=== PATIENT | female | born 1940 | race Caucasian/White ===

== ENCOUNTER 2016-07-23 11:37 | Outpatient (CLI) | payer OTHER ==
[2016-07-23] MEDS ORDERED: ACIDOPHILUS LAC1 CAP PO (13:41)
[2016-07-23] MEDS ORDERED: JUVEN (13:42)
[2016-07-23] MEDS ORDERED: PRILOSEC10 M1 PO (13:43)
[2016-07-23] MEDS ORDERED: CORDARONE200 MG PO (13:47)
[2016-07-23] MEDS ORDERED: NOVOLOG100 U/M1 SC (14:18)
[2016-07-23] MEDS ORDERED: HUMALOG 30100 UNITS/ SC (14:18)
[2016-07-23] MEDS ORDERED: COREG12.5 MG PO (14:19)
[2016-07-23] MEDS ORDERED: GABAPENTIN100 MG PO (14:19)
[2016-07-23] MEDS ORDERED: COUMADIN5 MG PO (14:20)
[2016-07-23] MEDS ORDERED: CRESTOR20 MG PO ×2 (14:21→14:22)
[2016-07-23] MEDS ORDERED: ISOSORBIDE DINI20 MG PO (14:22)
[2016-07-23] MEDS ORDERED: MEGACE40 MG PO (14:23)
[2016-07-23] MEDS ORDERED: PROTONIX40 MG PO (14:26)
[2016-07-23] MEDS ORDERED: LINEZOLID600 MG PO (14:27)
[2016-07-23] MEDS ORDERED: IPRAT-ALBUT 0.5-3 ML UPD (14:27)
[2016-07-23] MEDS ORDERED: HYDROCODON-ACE1 EAC7 PO (14:28)
[2016-07-23] MEDS ORDERED: BENZONATATE200 MG PO (14:29)
[2016-07-23] MEDS ORDERED: GUAIFENESI100 MG/5 M PO (14:29)
[2016-07-23 14:35] VITALS: BP 112/50
--- NOTE | 2016-07-23 14:48 | NUR ---
AWAKENED BRIEFLY FOR TEMPERATURE CHECK. RESPIRATIONS WITHOUT DISTRESS, NO SIGNS OF TRANSFUSION REACTION NOTED.
--- NOTE | 2016-07-23 16:40 | NUR ---
REPOSITIONED TO RIGHT SIDE. SECOND UNIT OF PRBC'S UP WITH NS AND BLOOD TUBING.
--- NOTE | 2016-07-23 17:45 | NUR ---
1700 RESTING WITH EYES CLOSED ON RT SIDE.RESP EVEN AND NONLABORED.NO S/S OF BLOOD REACTIONS IV VIA RT CHEST DIALYSIS CATHETER DRESSING C/D/I.
--- NOTE | 2016-07-23 18:53 | NUR ---
1800 REPOSITIONED UP IN THE BED. ASSISTED WITH FEEDING PATIENT. BLOOD INFUSING VIA RT CHEST DIALYSIS CATHETER AND NO S/S OF BLOOD REACTIONS NOTED.
--- NOTE | 2016-07-23 18:57 | NUR ---
1830 REPOSITIONED TO LEFT SODE. PATIENT CHECKED AND IS DRY.RESP NONLABORED BLOOD INFUSING WITHOUT S/S OF ADVERSE EFFECTS NOTED.
--- NOTE | 2016-07-23 18:58 | NUR ---
1840 BLOOD COMPLETED AND FLUSHED WITH SALINE.
--- NOTE | 2016-07-23 19:50 | NUR ---
1911 RT CHEST DIALYSIS CATHETER FLUSHED WITH SALINE AND HEPARIN.
--- NOTE | 2016-07-23 19:51 | NUR ---
1939 V/S CHECKED BLOOD COMPLETED AND NO S/S OF BLOOD REACTIONS NOTED.
--- NOTE | 2016-07-23 19:52 | NUR ---
1947 TO [facility] AND ASSISTED FROM BED TO W/C VIA XIANG LIFT.
--- NOTE | 2016-07-23 19:52 | NUR ---
193 INCONTINENT OF STOOL BEN CARE GIVEN DIAPER CHANGED.
== END 2016-07-23 19:49 | disposition home or self-care (01) ==
LOC: D.OPS 11:37
DX: D64.9 Anemia, unspecified (principal)

== ENCOUNTER 2016-08-25 11:04 | Inpatient (IN) | payer MEDICARE ==
[~2016-08-25] VITALS: Ht 162.6 cm; Wt 90.1 kg
[2016-08-25 02:00] VITALS: BP 95/34
[~2016-08-25 11:04] MED LIST: ACIDOPHILUS LAC1 CAP PO; BENZONATATE200 MG PO; CORDARONE200 MG PO; COREG12.5 MG PO; COUMADIN5 MG PO; CRESTOR20 MG PO; GABAPENTIN100 MG PO; GUAIFENESI100 MG/5 M PO; HUMALOG 30100 UNITS/ SC; HYDROCODON-ACE1 EAC7 PO; IPRAT-ALBUT 0.5-3 ML UPD; ISOSORBIDE DINI20 MG PO; JUVEN; LINEZOLID600 MG PO; MEGACE40 MG PO; NOVOLOG100 U/M1 SC; PRILOSEC10 M1 PO; PROTONIX40 MG PO
[2016-08-25 12:12] LABS: BASOPHILS 0.6 % (0.0-2.0); EOSINOPHILS 4.1 % (0-7); HEMATOCRIT 34.3 % (36.0-48.0); HEMOGLOBIN 10.7 g/dL (12-16); IMMATURE GRANULOCYTES 0.2 % (0-5); LYMPHOCYTES 19.8 % (15-50); MCH 29.7 pg (26.0-34.0); MCHC 31.2 g/dL (31.0-37.0); MCV 95.3 fL (80.0-100.0); MEAN PLATELET VOLUME 9.3 fL (7.4-10.4); MONOCYTES 12.8 % (2-11); NEUTROPHILS 62.5 % (40-80); PLATELET COUNT 250 10x3/uL (130-400); RDW 17.4 % (11.5-14.5); WBC 6.6 10x3/uL (4.8-10.8)
[2016-08-25 12:25] LABS: ALBUMIN 2.4 g/dL (3.4-5.0); ALKALINE PHOSPHATASE 157 U/L (46-116); ALT (SGPT) 19 U/L (10-68); BILIRUBIN - TOTAL 0.61 mg/dL (0.2-1.3); CALC OSMOLALITY 279 mosm/kg (275-300); CALCIUM 8.4 mg/dL (8.5-10.1); CARBON DIOXIDE 28.9 mmol/L (21.0-32.0); CHLORIDE - SERUM 101 mmol/L (98-107); CREATININE - SERUM 1.9 mg/dL (0.6-1.3); GLUCOSE 89 mg/dL (74-106); PROTEIN - SERUM 7.9 g/dL (6.4-8.2); SODIUM 139 mmol/L (136-145); UREA NITROGEN 21 mg/dL (7-18); eGFR NON AFRICAN AMERICAN 27 mL/min (90-120)
[2016-08-25 12:28] LABS: PRO BNP 30757 pg/mL (0-125); TROPONIN-I < 0.017 ng/mL (0.000-0.060)
[2016-08-25 16:00] VITALS: BP 104/51; BMI 31.3
--- NOTE | 2016-08-25 17:27 | NUR ---
EARLIER PT ARRIVED FROM ER VIA WC. PATIENT LIFTED INTO BED VIA HELP OF STAFF. DR. MAJANO HERE TO EXAM PT. RESP WITH WHEEZING ONINSPIRATION AND EXPIRATION. HEMOSPLIT IN R CHEST WITHOUT ANY DRESSING. STERILE DRESSING PLACE. PIV IN LFOREARM. PATIENT HAS RIGHT SIDED WEAKNESS DUE TO OLD CVA. MONITOR ON AND UNCAF WITH RATE OF 117. CARDIZEM GTT GOING @ 5. FAMILY REPORTS PT HAS PRESSURE ULCER ON COCCYX AND MAKAYLA HEELS. DRESSING ON ALL CDI. DRESSING PEALED BACK FROM COCCYX TO EXAMINE WOUND. WOUND IS APPROX 4 IN X 2IN DEEP WITH GREEN DRAINAGE ON DRESSING SCANT AMT. DRESSING PLACED BACK. PATIENT CO PAIN. MAKAYLA HEEL DRESSINGS REMOVED TO EXAMINE. MAKAYLA HEELS ULCER ARE SCABBED OVER AND APPROX 1X1 WITHOUT ANY DRAINAGE. DRESSINGS REPLACED. WILL GET WOUND CARE CONSULT.
--- NOTE | 2016-08-25 20:26 | NUR ---
HS MEDS GIVEN WITH FRESH ICE WATER. BS 86, NO COVERAGE NEEDED PER S/S. BUPRENEX 0.2 MG GIVEN IV FOR C/O PAIN TO WOUND ON COCCYX. NO OTHER NEEDS AT THIS TIME, BED LOW, CL IN REACH.
--- NOTE | 2016-08-25 22:12 | NUR ---
RESTING ON RIGHT SIDE, RESPERATIONS EVEN, NO S/S DISTRESS NOTED.
[2016-08-26] VITALS: BP 104/67
--- NOTE | 2016-08-26 00:32 | NUR ---
KNITTER HELPER AT BEDSIDE TO OBTAIN VITALS, CALL LIGHT IN REACH. 93 CAF ON TELEMETRY. WILL CONTINUE WITH PLAN OF CARE.
--- NOTE | 2016-08-26 03:00 | NUR ---
REPOSITIONED IN BED FOR COMFORT. DRSG TO COCCYX OFF, REDRESSED WITH NS WET TO DRY UNTIL FURTHER ORDERS RECIEVED FROM WOUND CARE.
[2016-08-26 04:00] VITALS: BP 103/37
[2016-08-26 06:45] LABS: BASOPHILS 0.6 % (0.0-2.0); HEMATOCRIT 35.4 % (36.0-48.0); HEMOGLOBIN 10.4 g/dL (12-16); IMMATURE GRANULOCYTES 0.1 % (0-5); LYMPHOCYTES 20.1 % (15-50); MCH 28.6 pg (26.0-34.0); MCHC 29.4 g/dL (31.0-37.0); MEAN PLATELET VOLUME 9.7 fL (7.4-10.4); MONOCYTES 10.7 % (2-11); NEUTROPHILS 67.5 % (40-80); PLATELET COUNT 244 10x3/uL (130-400); RBC 3.64 10x6/uL (4.00-5.40); RDW 17.8 % (11.5-14.5); WBC 7.8 10x3/uL (4.8-10.8)
[2016-08-26 06:50] LABS: INR 1.79 (0.85-1.17); PROTIME 20.8 SECONDS (11.6-15.0)
[2016-08-26 06:52] LABS: MCV 97.3 fL (80.0-100.0)
[2016-08-26 06:55] LABS: ANION GAP 16.2 mmol/L (8-16); CALCIUM 8.6 mg/dL (8.5-10.1); CREATININE - SERUM 2.6 mg/dL (0.6-1.3); POTASSIUM - SERUM 4.2 mmol/L (3.5-5.1)
--- NOTE | 2016-08-26 07:33 | NUR ---
ASSESSMENT COMPLETED. O2 AT 2 L/M PER NC. TELEMERTY SHOWS CAF AT 103. LEFT FORE ARM IV WITH CARDIZWN AT 10 AND NS AT KVO. PT HAS RIGHT SIDED WEAKNESS. PT HAS A RIGHT SIDED AVF AND RIGHT CHES HEMOSPLIT. J TUBE NOTED TO ABD. SR UP WITH CALL LIGHT IN REACH
[2016-08-26 07:48] VITALS: BP 105/34
[2016-08-26 12:05] VITALS: BP 104/41
[2016-08-26 13:15] VITALS: Ht 162.6 cm; Wt 90.1 kg
--- NOTE | 2016-08-26 15:12 | NUR ---
WOUND CARE CONSULT: PT HAS STAGE 3 PRESSURE INJURY TO SACRUM MEASURING 7.5CM X 6CM X 1.5CM X 5CM FROM 8-3 OCLOCK. THIS IS A CHRONIC ULCER. THERE IS NO MUSCLE, TENDON OR BONE EXPOSED. THE WOUND EDGES ARE ROLLED. THERE IS A MODERATE SEROUS DRAINAGE AND SLIGHT ODOR. RECOMMEND A WET TO DRY WITH DAKINS. BILATERAL HEELS HAVE WHAT APPEAR TO BE HEALING STAGE 3'S. LEFT MEASURES 1CM X 1CM X 0.3CM RIGHT 1CM X 1CM X 0.2CM. BOTH ARE DRY WITHOUT DRAINAGE. RECOMMEND PROTECTION BY CUSHIONING AND KEEPING ELEVATED. WOUND CARE WILL CONTINUE TO MONITOR.
[2016-08-26 15:53] VITALS: BP 109/46
--- NOTE | 2016-08-26 17:43 | NUR ---
1ST STEP AIR BED TO BED. REPOSITIONED FOR COMFORT. TELEMERTY SHOWS UCAF AT 102. DENIES ANY NEEDS. SR UP WITH CALL LIGHT IN REACH
--- NOTE | 2016-08-26 19:34 | NUR ---
RESUMED CARE OF PT, LYING IN BED RESPIRATIONS EVEN AND UNLABORED ON 2LPM VIA NC. LAB AT BEDSIDE. 93 CAF ON TELEMETRY. LEFT FOREARM INFUSING CARDIZEM @ 10 AND NS @ 10. 1ST STEP OVERLAY INFLATED. CALL LIGHT IN REACH. NO NEEDS VOICED AT THIS TIME. WILL CONTINUE TO MONITOR. SEE NURSE ASSESSMENT.
[2016-08-26 19:49] LABS: BASOPHILS 0.5 % (0.0-2.0); EOSINOPHILS 3.4 % (0-7); HEMATOCRIT 33.4 % (36.0-48.0); IMMATURE GRANULOCYTES 0.2 % (0-5); LYMPHOCYTES 18.7 % (15-50); MCH 29.2 pg (26.0-34.0); MCHC 29.9 g/dL (31.0-37.0); MCV 97.4 fL (80.0-100.0); MEAN PLATELET VOLUME 9.4 fL (7.4-10.4); MONOCYTES 9.1 % (2-11); NEUTROPHILS 68.1 % (40-80); PLATELET COUNT 245 10x3/uL (130-400); RBC 3.43 10x6/uL (4.00-5.40); RDW 17.8 % (11.5-14.5); WBC 8.6 10x3/uL (4.8-10.8)
[2016-08-26 20:00] VITALS: BP 96/38
[2016-08-26 20:14] LABS: APTT 37.9 SECONDS (22.8-39.4); INR 1.97 (0.85-1.17); PROTIME 22.5 SECONDS (11.6-15.0)
[2016-08-27] VITALS: BP 107/49
[2016-08-27 04:00] VITALS: BP 99/36
[2016-08-27 05:00] LABS: BASOPHILS 0.7 % (0.0-2.0); EOSINOPHILS 5.1 % (0-7); HEMATOCRIT 32.2 % (36.0-48.0); HEMOGLOBIN 9.6 g/dL (12-16); IMMATURE GRANULOCYTES 0.1 % (0-5); LYMPHOCYTES 20.4 % (15-50); MCH 28.7 pg (26.0-34.0); MCHC 29.8 g/dL (31.0-37.0); MCV 96.1 fL (80.0-100.0); MEAN PLATELET VOLUME 9.3 fL (7.4-10.4); MONOCYTES 9.7 % (2-11); PLATELET COUNT 230 10x3/uL (130-400); RBC 3.35 10x6/uL (4.00-5.40); RDW 17.6 % (11.5-14.5); WBC 8.2 10x3/uL (4.8-10.8)
[2016-08-27 05:10] LABS: INR 2.14 (0.85-1.17)
[2016-08-27 05:20] LABS: ANION GAP 12.5 mmol/L (8-16); CALCIUM 9.1 mg/dL (8.5-10.1); CARBON DIOXIDE 26.7 mmol/L (21.0-32.0); CREATININE - SERUM 3.7 mg/dL (0.6-1.3); PHOSPHOROUS 5.8 mg/dL (2.5-4.9); POTASSIUM - SERUM 3.2 mmol/L (3.5-5.1); VANCOMYCIN - RANDOM 0.3 ug/mL (10.0-20.0)
--- NOTE | 2016-08-27 07:43 | NUR ---
ASSESSMENT COMPLETED. TELEMERTY SHOWS CAF AT 80. LEFT FORE ARM WITH NS AT 10 AND CARDIZEM AT 10. PT IS ON AIRBED. PT HAS A J-TUBE THAT IS NOT USED. DRSG TO COCCYX WITH DRSG DRY AND INTACT. RIGHT AVF AND RIGHT HEMOSPLIT DENIES ANY NEEDS. CALL LIGHT IN REACH WITH SR UP.
[2016-08-27 08:22] VITALS: BP 97/45
--- NOTE | 2016-08-27 10:16 | NUR ---
RESTING QUIETLY NAD NOTED
--- NOTE | 2016-08-27 12:26 | NUR ---
LYING QUIETY .DENIES ANY NEEDS. AWAITING TEST. REPOSITIONED FOR COMFORT
[2016-08-27 12:42] VITALS: BP 100/48
--- NOTE | 2016-08-27 15:41 | NUR ---
REPOSITIONED. DENIES ANY NEED. AWAITING DIALYIS. TELEMTRY SHOWS CAF. FAMILY AT BEDIDE
[2016-08-27 16:55] VITALS: BP 99/49
--- NOTE | 2016-08-27 18:21 | NUR ---
REPOSITIONED FOR COMFORT. DENIES ANY NEEDS. READY FOR DIALYSIS. SR UP WITH CALL LIGHT IN REACH
--- NOTE | 2016-08-27 19:27 | NUR ---
INITIAL ROUNDS COMPLETED. PT DENIES ANY DISCOMFORT. WILL CONTINUE TO MONITOR.
[2016-08-27 21:31] VITALS: BP 117/57
--- NOTE | 2016-08-27 22:05 | NUR ---
ASSESSMENT COMPLETED AT 1940 HRS. VSS. CAF PER CM HR 93. O3 3LNC. DRESSING TO COCCYX AND BILAT HEELS CLEAN, DRY AND INTACT. IV TO LAC WITH NS AT 10CC/HRA ND CARDIZEM AT 10MG(10CC) HR. IV PATENT. LUNGS WITH INSP AND EXP WHEEZES BILAT. SCATTERED RHONCHI NOTED. DIMINISHED IN RLL. R CHEST HEMOSPLIT NOTED. pT ON A 1ST STEP AIR OVERLAY MATTRESS. DIALYSIS INITIATED AT 2014 HRS. PM MEDS GIVEN. BUPRENEX 0.2MG IVP GIVEN AT 2200 HRS FOR C/O SEVERE GENERALIZED PAIN. WILL CONTINUE TO MONITOR. DIALYSIS IN PROGRESS.
--- NOTE | 2016-08-27 23:04 | NUR ---
Mrs. Calzada had bedside hemodialysis today via her right chest hemosplit from 2013 until 2313. Average blood flow was 300 mls/minute. Kept blood flow low due to having history of uncontrolled atrial fib. Net fluid removed was 3000 mls. Pt. was very restless and complaining of pain in her back throughout treatment. Post vital signs were:B/P:119/58,HR:50, Temp:97.7,Resps:20.
--- NOTE | 2016-08-27 23:34 | NUR ---
BED CHANGED OUT WITHOUT DIFFICULTY. WILL CONTINUE TO MONITOR.
[2016-08-28 00:26] VITALS: BP 119/58
--- NOTE | 2016-08-28 00:28 | NUR ---
PT REPOSITIONED IN BED FOR COMFORT. WILL CONTINUE TO MONITOR. SR UP X2, CALL LIGHT WITHIN REACH.
--- NOTE | 2016-08-28 02:11 | NUR ---
REPOSITIONED IN BED FOR COMFORT. WILL CONTINUE TO MONITOR. CALL LIGHT WITHIN REACH. BED ALARM ON.
--- NOTE | 2016-08-28 04:18 | NUR ---
PT AWAKE; DENIES ANY DISCOMFORT. REPOSITIONED IN BED FOR COMFORT. NEW DRESSING APPLIED TO L J-TUBE. WILL CONITNUE TO MONITOR. SR UP X2, CALL LIGHT WITHIN REACH AND BED ALARM ON.
--- NOTE | 2016-08-28 05:21 | NUR ---
PT REPOSITIONED IN BED FOR COMFORT. SR UP X2, CALL LIGHT WITHIN REACH AND BED ALARM ON.
[2016-08-28 05:32] LABS: BASOPHILS 0.5 % (0.0-2.0); HEMATOCRIT 34.5 % (36.0-48.0); HEMOGLOBIN 10.3 g/dL (12-16); IMMATURE GRANULOCYTES 0.3 % (0-5); LYMPHOCYTES 17.4 % (15-50); MCH 28.5 pg (26.0-34.0); MCHC 29.9 g/dL (31.0-37.0); MCV 95.6 fL (80.0-100.0); MEAN PLATELET VOLUME 9.7 fL (7.4-10.4); MONOCYTES 8.8 % (2-11); PLATELET COUNT 245 10x3/uL (130-400); RBC 3.61 10x6/uL (4.00-5.40); RDW 17.4 % (11.5-14.5); WBC 7.5 10x3/uL (4.8-10.8)
[2016-08-28 05:48] LABS: INR 2.01 (0.85-1.17); PROTIME 22.8 SECONDS (11.6-15.0)
[2016-08-28 05:49] LABS: ANION GAP 11.3 mmol/L (8-16); CALCIUM 8.7 mg/dL (8.5-10.1); CREATININE - SERUM 2.9 mg/dL (0.6-1.3); POTASSIUM - SERUM 3.3 mmol/L (3.5-5.1)
[2016-08-28 05:53] VITALS: BP 117/59
[2016-08-28 06:07] LABS: PHOSPHOROUS 3.6 mg/dL (2.5-4.9)
--- NOTE | 2016-08-28 06:33 | NUR ---
AM FSBS 90. NO COVERAGE NEEDED. VSS THROUGHOUT NIGHT. CAF PER CM. PT STATED IV BUPRENEX AND PO NORCO CONTROLLED PAIN. NEEDS MET; WILL CONTINUE TO MONITOR.
--- NOTE | 2016-08-28 07:16 | NUR ---
RECEIVED PT REPORT. WILL CONTINUE PLAN OF CARE. NO OTHER NEEDS AT THIS TIME. WILL CONTINUE TO [facility].
--- NOTE | 2016-08-28 08:01 | NUR ---
PT IS ALERT. ASSESSMENT DONE PER FLOWSHEET. NOOTHER NEEDS AT THIS TIME. WILL CONTINUE TO MONITOR.
[2016-08-28 09:19] VITALS: BP 107/54
[2016-08-28 12:21] VITALS: BP 132/64
[2016-08-28 15:49] VITALS: BP 113/46
[2016-08-28 21:37] VITALS: BP 110/50
--- NOTE | 2016-08-28 23:28 | NUR ---
INIITAL ROUNDS COMPLETED AT 1920 HRS. FAMILY AT BEDSIDE. PT REPOSITIONED INBED FOR COMFORT AT THAT TIME. ASSESSMENT COMPLETED AT 2039 HRS. O2 3LNC. IV TO LAC WITH D51/2NS AT 10CC/HR AND CARDIZEM DRIP AT 10MG/HR ( 10CC/HR). IV PATENT. LUNGS DIMINISHED INBASES BILAT WITH LOOSE RHONCHI WHICH CLEARS WITH COUGH NOTED TO UPPER LOBES. DRESSING TO BILAT HEELS CLEAN, DRY AND INTACT. HEELS ELEVATED ON PILLOWS. DRESSING TO COCCYX CLEAN, DRY AND INTACT. PT ON FISRT STEP AIR OVERLAY MATTRESS. J-TUBE CLAMPED AND DRESSING CLEAN, DRY AND INTACT. PT REPOSITIONED IN BED FOR COLMFORT AT PM MED PASS. PM FSBS 112. NO COVERAGE NEEDED. PT CURRENTLY RESTING WITH EYES CLOSED. RESP EVEN AND REGULAR. SR UP X2, CALL LIGHT WITHINREACH AND BED ALARM ON.
--- NOTE | 2016-08-28 23:56 | NUR ---
PT REPOSITIONED IN BED FOR COMFORT. WILL CONTINUE TO MONITOR.
[2016-08-29 00:30] VITALS: BP 111/50
--- NOTE | 2016-08-29 01:59 | NUR ---
PT REPOSITIONED IN BED FOR COMFORT. PT DENIES ANY DISCOMFORT. WILL CONTINUE TO MONITOR. SR UP X2, CALL LIGHT WITHIN REACH AND BED ALARM ON.
--- NOTE | 2016-08-29 04:23 | NUR ---
PT REPOSITIONED IN BED FOR COMFORT. PT DENIES ANY DISCOMFORT. WILL CONTINUE TO MONITOR.
[2016-08-29 04:30] VITALS: BP 115/59
[2016-08-29 06:23] LABS: BASOPHILS 0.4 % (0.0-2.0); EOSINOPHILS 7.2 % (0-7); HEMATOCRIT 35.1 % (36.0-48.0); HEMOGLOBIN 10.5 g/dL (12-16); IMMATURE GRANULOCYTES 0.3 % (0-5); LYMPHOCYTES 19.7 % (15-50); MCH 28.3 pg (26.0-34.0); MCHC 29.9 g/dL (31.0-37.0); MCV 94.6 fL (80.0-100.0); MEAN PLATELET VOLUME 9.9 fL (7.4-10.4); MONOCYTES 9.4 % (2-11); PLATELET COUNT 246 10x3/uL (130-400); RBC 3.71 10x6/uL (4.00-5.40); RDW 17.4 % (11.5-14.5); WBC 7.8 10x3/uL (4.8-10.8)
[2016-08-29 06:38] LABS: ANION GAP 11.7 mmol/L (8-16); CALCIUM 8.8 mg/dL (8.5-10.1); CARBON DIOXIDE 26.7 mmol/L (21.0-32.0); PHOSPHOROUS 4.2 mg/dL (2.5-4.9); POTASSIUM - SERUM 3.4 mmol/L (3.5-5.1)
--- NOTE | 2016-08-29 06:38 | NUR ---
VSS THROUGHOUT NGIHT. CAF PER CM. PT STAED IV BUPRENEX ALLEVIATED BACK PAIN. REPOSITIONED FREQ DURING SHIFT. NEEDS MET; WILL CONTINUE TO MONITOR.
[2016-08-29 06:39] LABS: CREATININE - SERUM 3.8 mg/dL (0.6-1.3)
[2016-08-29 08:59] VITALS: BP 118/51
[2016-08-29 12:14] VITALS: BP 126/52
--- NOTE | 2016-08-29 12:54 | NUR ---
PT IS ALERT. ASSESSMENT DONE PER FOWSHEET. NO OTHER NEEDS.
[2016-08-29 16:13] VITALS: BP 114/48
--- NOTE | 2016-08-29 20:17 | NUR ---
DRESSING CHANGE TO COCCYX DONE AT 1900 BY Ra PARRY RN. REPOSITIONED INBED FOR COMFORT AT THAT TIME. ASSESSMENT COMPLETED AT 2004 HRS. CAF PER CM HR 94. IV TO LAC WITH D51/2NS AT 10CC/HR AND CARDIZEM DRIP AT 10MG/HR. IV PATENT. DRESSING TO COCCYX CLEAN, DRY AND INTACT. NUMEROUS TINY SCABS NOTED TO ABD. DRESSING TO BILAT HEELS CLEAN, DRY AND INTACT. HEELS ELEVATED ON PILLOWS. LUNGS DIMINISHED IN BASES BILAT WITH LOOSE RHONCHI THAT CLEARS WITH COUGH AFTER FLUIDS. R CHEST HEMOSPLIT. PT ON A 1ST STEP AIR OVERLAY MATTESS. BED ALARM ON. SR UP X2, CALL LIHGT WITHIN REACH.
[2016-08-29 21:37] VITALS: BP 130/60
[2016-08-30 00:30] VITALS: BP 107/50
--- NOTE | 2016-08-30 00:36 | NUR ---
PT INCONTINENT OF LARGE AMOUNT OF DIARRHEA. PT CLEANED. DIARRHEA SOAKED INTO COCCYX DRESSING. AREA CLEANED AND NEW DAKINS 1/4 STRENGTH WET TO DRY DRESSING APPLED. PT TOLERATED ACTIVITY WELL. IV OUT DURING ACTIVTY WITH CATHETER INTACT. NEW IV STARTED #22 TO INNER LFA WITH ATTEMPT X2. CARDIZEM DRIP AND D51/2NS RESUMED. REPOSITIONED INBED FOR COMFORT. WILL CONTINUE TO MONITOR. CALL LIGHT WITHIN REACH.
--- NOTE | 2016-08-30 04:23 | NUR ---
PT REPOSITIONED IN BED FOR COMFORT. WILL CONTINUE TO MONITOR.
[2016-08-30 04:45] VITALS: BP 130/65
[2016-08-30 06:33] LABS: BASOPHILS 0.6 % (0.0-2.0); EOSINOPHILS 6.1 % (0-7); HEMATOCRIT 35.3 % (36.0-48.0); HEMOGLOBIN 10.8 g/dL (12-16); IMMATURE GRANULOCYTES 0.2 % (0-5); LYMPHOCYTES 15.7 % (15-50); MCH 28.7 pg (26.0-34.0); MCHC 30.6 g/dL (31.0-37.0); MCV 93.9 fL (80.0-100.0); MEAN PLATELET VOLUME 9.8 fL (7.4-10.4); MONOCYTES 8.3 % (2-11); NEUTROPHILS 69.1 % (40-80); PLATELET COUNT 259 10x3/uL (130-400); RBC 3.76 10x6/uL (4.00-5.40); RDW 17.3 % (11.5-14.5); WBC 9.6 10x3/uL (4.8-10.8)
--- NOTE | 2016-08-30 06:41 | NUR ---
VSS THROUGHOUT NGIHT. CAF PER CM. PT TURNED FREQUENTLY DURING NIGHT. NEEDS MET; WILL CONTINUE TO MONITOR.
[2016-08-30 06:46] LABS: ANION GAP 13.5 mmol/L (8-16); CARBON DIOXIDE 25.9 mmol/L (21.0-32.0); PHOSPHOROUS 4.7 mg/dL (2.5-4.9); POTASSIUM - SERUM 3.4 mmol/L (3.5-5.1)
[2016-08-30 06:47] LABS: CREATININE - SERUM 4.8 mg/dL (0.6-1.3)
--- NOTE | 2016-08-30 07:53 | NUR ---
RESTING QUIETLY NAD NOTED
[2016-08-30 08:00] VITALS: BP 126/59
--- NOTE | 2016-08-30 08:35 | NUR ---
ASSESSMENT COMPLETED. DENIES ANY NEEDS. CALL LIGHT IN REACH. 02 AT 2 L/M PER NC. RIGHT HEMOSPLIT NOTED. LEFT FA WITH CARDIZEM AT 10 AND NS AT 10. PT IS ON 1ST STEP BED. DRSG TO COCCYX DRY AND INTACT.
[2016-08-30 12:08] VITALS: BP 104/47
[2016-08-30 16:00] VITALS: BP 114/51
[2016-08-30 21:40] VITALS: BP 150/102
--- NOTE | 2016-08-30 23:41 | NUR ---
underwent HD treatment via r hemosplit. 2000 ml net fluid removal with no complications.
[2016-08-31 02:00] VITALS: BP 157/68
[2016-08-31 06:03] LABS: BASOPHILS 0.6 % (0.0-2.0); EOSINOPHILS 5.7 % (0-7); HEMATOCRIT 36.3 % (36.0-48.0); IMMATURE GRANULOCYTES 0.3 % (0-5); LYMPHOCYTES 14.2 % (15-50); MCH 28.6 pg (26.0-34.0); MCHC 30.3 g/dL (31.0-37.0); MCV 94.3 fL (80.0-100.0); MEAN PLATELET VOLUME 9.9 fL (7.4-10.4); MONOCYTES 8.8 % (2-11); NEUTROPHILS 70.4 % (40-80); PLATELET COUNT 234 10x3/uL (130-400); RBC 3.85 10x6/uL (4.00-5.40); RDW 17.2 % (11.5-14.5)
[2016-08-31 06:07] LABS: INR 4.7 (0.85-1.17)
[2016-08-31 06:13] LABS: ANION GAP 12.3 mmol/L (8-16); CALCIUM 8.6 mg/dL (8.5-10.1); CARBON DIOXIDE 27.1 mmol/L (21.0-32.0); POTASSIUM - SERUM 3.4 mmol/L (3.5-5.1)
[2016-08-31 06:14] LABS: CREATININE - SERUM 3.2 mg/dL (0.6-1.3); PHOSPHOROUS 3.3 mg/dL (2.5-4.9)
[2016-08-31 07:52] VITALS: BP 132/64
--- NOTE | 2016-08-31 08:08 | NUR ---
ASSESSMENT COMPLETED. TELEMERTY SHOWS CAF. IV TO LEFT FA WITH CARDIZEM AT 10. PT IS ON A FIRST STEP BED. RIGHT CHEST HEMASPLIT. DENIES ANY NEEDS. CALL LIGHT IN REACH WITH SIDERAILS UP
--- NOTE | 2016-08-31 10:28 | NUR ---
RESTING QUIETLY NAD NOTED
[2016-08-31 11:42] VITALS: BP 109/52
--- NOTE | 2016-08-31 15:17 | NUR ---
Nutrition follow-up: Diet: Regular mechanical soft with nectar thick liquids PO intake very poor; pt reports just not being hungry Labs reviewed Pt on Megace +BM Wt: 208# Pt with J-tube in place. Recommend supplemental feeding of 1 can of Nepro between meals to increase kcal/protein intake if physician and pt agree. RDN following.
[2016-08-31 15:51] VITALS: BP 106/53
--- NOTE | 2016-08-31 18:32 | NUR ---
LYING QUIETLY WITH EYES CLOSED. TELEMERTY SHOWS CAF. WILL MONITOR
[2016-08-31 20:00] VITALS: BP 110/48
[2016-09-01 04:00] VITALS: BP 130/64
[2016-09-01 07:00] LABS: BASOPHILS 0.5 % (0.0-2.0); HEMATOCRIT 36.4 % (36.0-48.0); IMMATURE GRANULOCYTES 0.4 % (0-5); LYMPHOCYTES 17.2 % (15-50); MCH 28.6 pg (26.0-34.0); MCHC 30.2 g/dL (31.0-37.0); MCV 94.5 fL (80.0-100.0); MEAN PLATELET VOLUME 9.8 fL (7.4-10.4); MONOCYTES 8.9 % (2-11); PLATELET COUNT 240 10x3/uL (130-400); RBC 3.85 10x6/uL (4.00-5.40); RDW 17.4 % (11.5-14.5); WBC 9.8 10x3/uL (4.8-10.8)
[2016-09-01 07:16] LABS: ANION GAP 11.4 mmol/L (8-16); CALCIUM 8.8 mg/dL (8.5-10.1); POTASSIUM - SERUM 3.4 mmol/L (3.5-5.1)
[2016-09-01 07:17] LABS: CREATININE - SERUM 4.3 mg/dL (0.6-1.3)
[2016-09-01 07:39] LABS: INR 5.36 (0.85-1.17)
[2016-09-01 07:48] VITALS: BP 129/65
--- NOTE | 2016-09-01 08:30 | NUR ---
INTRODUCED MYSELF TO PT PRIMARY RN FOR TODAYS SHIFT. PT IS ALERT AND ORIENTED LYING BACK IN BED RESTING COMFORTABLY. RR NONLABORED WITH NC @2L IN PLACE. PTS LUNGS ARE VERY CONGESTED/WET SOUNDING PT DENIES BEING ABLE TO COUGH ANYTHING UP THOUGH. PT HAS A R.WRIST PIV THAT IS SALINE LOCKED, CARDIZEM DRIP WAS JUST D/C AND TAKEN DOWN. PT IS LAYING ON AN AIR MATTRESS FOR COMFORT. PT HAS BILAT HEELS WITH DRSGS IN PLACE CDI. PT ALSO HAS A WOUND ON HER BUTTOCKS THAT SHE REFUSED FOR ME TO SEE/CHANGE DRSG AT THIS TIME AND STATES I CAN LATER ON. SHIFT ASSESSMENT COMPLETED. PTS SKIN IS VERY DRY, APPLIED LOTION FOR HER. PT HAS A R.CHEST HEMESPLIT, DRSG CDI, BIOPATCH IN PLACE AND CAPS ON ENDS. TELEMETRY IN PLACE RUNNING CONTROLLED A.FIB. VSS. PT IS REALLY WANTING TO BE D/C AND STATES "I JUST FEEL BETTER AT MY NH" TOLD PT I WILL DISCUSS WITH DOCTOR. PT ERIK ANY FURTHER NEEDS AT THIS TIME. CL IN REACH, BED IN LOWEST, SIDE RAILS X2. WILL CPOC.
--- NOTE | 2016-09-01 11:32 | NUR ---
FSBS 108. NO COVERAGE REQUIRED PER SS. CHANGED PTS BUTTOCKS DRSG R/T INCONTINENT EPISODE OF BOWEL. CLEANSED ULCER/OPEN WOUND HOLE WITH WOUND CLEANSER, PATTED DRY, DRESSED WITH WET-TO-DRY DAKINS SOLUTION PACKED LOOSELY, THEN COVERED WITH DRY 4X4 GUAZE PADS AND SECURED WITH TAPED.
[2016-09-01 11:46] VITALS: BP 123/58
[2016-09-01 16:01] VITALS: BP 118/57
--- NOTE | 2016-09-01 17:35 | NUR ---
Mrs. Calzada had bedside hemodialysis today via her right chest hemosplit from 1317 until 1617. Average blood flow was 400 mls/minute. Net fluid removed was 2500 mls. Post vital signs were: B/P:130/60,HR:107, Temp:97.2, Resps:97.2. Pt. was hypotensive during treatment reuiring albumin infusion and goal to be decreased to 2500mls.
[2016-09-01 20:00] VITALS: BP 129/58
--- NOTE | 2016-09-01 20:00 | NUR ---
RESUMED CARE OF PT, LYING IN BED RESPIRATIONS EVEN AND UNLABORED ON 2LPM VIA NC. 107 UCAF ON TELEMETRY. 1ST STEP OVERLAY INFLATED. NO NEEDS VOICED AT THIS TIME. WILL CONTINUE TO MONITOR. SEE NURSE ASSESSMENT. CALL LIGHT IN REACH.
[2016-09-02] VITALS: BP 117/63
[2016-09-02 04:00] VITALS: BP 145/71
[2016-09-02 05:54] LABS: BASOPHILS 0.6 % (0.0-2.0); EOSINOPHILS 5.7 % (0-7); HEMATOCRIT 38.7 % (36.0-48.0); HEMOGLOBIN 11.8 g/dL (12-16); IMMATURE GRANULOCYTES 0.3 % (0-5); LYMPHOCYTES 16.8 % (15-50); MCH 29.1 pg (26.0-34.0); MCHC 30.5 g/dL (31.0-37.0); MCV 95.3 fL (80.0-100.0); MEAN PLATELET VOLUME 9.9 fL (7.4-10.4); MONOCYTES 10.2 % (2-11); NEUTROPHILS 66.4 % (40-80); PLATELET COUNT 265 10x3/uL (130-400); RBC 4.06 10x6/uL (4.00-5.40); RDW 17.7 % (11.5-14.5); WBC 10.8 10x3/uL (4.8-10.8)
[2016-09-02 06:16] LABS: ANION GAP 11.8 mmol/L (8-16); CALCIUM 8.9 mg/dL (8.5-10.1); CARBON DIOXIDE 27.7 mmol/L (21.0-32.0); POTASSIUM - SERUM 3.5 mmol/L (3.5-5.1)
[2016-09-02 06:17] LABS: CREATININE - SERUM 3.1 mg/dL (0.6-1.3)
--- NOTE | 2016-09-02 06:47 | NUR ---
NO CHANGES FROM PREVIOUS ASSESSMENT, CALL LIGHT IN REACH. WILL CONTINUE TO MONITOR.
[2016-09-02 07:41] VITALS: BP 142/100
[2016-09-02 11:15] VITALS: BP 131/61
--- NOTE | 2016-09-02 12:54 | NUR ---
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 Yes 0 * How many steps to enter\exit or inside your home? NONE 0 * PCP DR. HOWARD 0 * Pharmacy [facility] 0 * Preadmission Environment [facility] 0 * Facility [facility] * ADLs Partial Dependent 0 * Partial ADLs (Assistance needed) Ambulation Bathing Dressing Medication Management Toileting Transfers 0 * Equipment Other 0 * Other Equipment ALL EQUIPMENT PROVIDED BY [facility] 0 * List name and contact numbers for known caregivers / representatives who currently or will assist patient after discharge: CHERRY RING, DAUGHTER, 0 * Community resources currently utilized None 0 * Please name any agencies selected above. NONE 0 * Additional services required to return to the preadmission environment? No 0 * Can the patient safely return to the preadmission environment? Yes 0 * Has this patient been hospitalized within the prior 30 days at any hospital? Yes 0 CM MET WITH PT IN ROOM TO DISCUSS DISCHARGE PLANNING AND NEEDS. PT REPORTS LIVING AT [facility] FOR THE PAST YEAR AND WILL RETURN THERE TODAY. PT IN AGREEMENT WITH DISCHARGE BACK TO [place] TODAY. PT HAS ALL NEEDED MEDICAL EQUIPMENT AT [place], THEY USE A LIFT TO GET HER INTO THE WHEELCHAIR, PT'S WHEELCHAIR IS HERE WITH HER NOW. PT GOES TO [facility], M/W/F 0600, THE SKILLED NURSING TRANSPORTS HER. PT DENIES DISCHARGE NEEDS, REPORTS [facility] WILL PICK HER UP FOR DISCHARGE HOME. PT ASKED CM TO CALL HER DAUGHTER TO INFOMR OF DISCHARGE BACK TO [place] TODAY. IMPORTANT MESSAGE FROM MEDICARE PROVIDED AND EXPLAINED. CM CALLED CHERRY RING, , SHE WAS AWARE OF DISCHARGE AFTER VISITING WITH PT TODAY AND IS IN AGREEMENT WITH DISCHARGE. CM CALLED AND SPOKE TO JOHNNIE AT [facility], , JOHNNIE REPORTS PT IS IN PRISON CARE AND THEY WILL ACCEPT BACK TODAY BUT WANT TO SUBMIT TO INSURANCE FOR POSSIBLE REHAB SERVICES BEFORE ACCEPTANCE. CM FAXED REFERRAL TO [facility], , ALONG WITH DISCHARGE INFORMATION. CM WAITING ADMISSION DETERMINATION FROM JOHNNIE AT [facility]. WHEN ACCEPTED FOR RETURN, [facility] TO ARRANGE VAN TRANSPORT, NURSE REPORT TO BE CALLED TO [place] AT [phone]. Excel Vba Developer: Sonny Griggs
[2016-09-02 14:58] VITALS: BP 129/61
--- NOTE | 2016-09-02 16:49 | NUR ---
Patient Name: MITZI SAGASTUME Encounter No: [id number] : 1940 Primary Insurance: HU[employer]NA CHOICE PPO [facility] [facility] Anticipated DC Date: 09-03-2016 Planned Disposition: Shelter Facility External Planned Provider: [facility], MEDICARE REHAB BED DCP follow-up note: CM CALLED AND SPOKE TO JOHNNIE AT [facility], , REGARDING INSURANCE AUTHORIZATION FOR RETURN TO [facility] FOR REHAB. JOHNNIE REPORTS SHE HAS NOT RECEIVED ANY RESPONSE FOR AUTHORIZATION FROM PT'S INSURANCE COMPANY AND WILL CHECK AGAIN IN THE MORNING. CM NOTIFIED PT AND DAUGHTER CHERRY IN ROOM. CM WAITING INSURANCE AUTHORIZATION FOR REHAB RETURN TO [facility]. WHEN INSURANCE AUTHORIZED AND ACCEPTED BY [facility] FOR RETURN, [facility] TO ARRANGE VAN TRANSPORT, NURSE REPORT TO BE CALLED TO [facility] AT [phone]. [place]mill [place]oulder Operator: Sonny Griggs
--- NOTE | 2016-09-02 19:28 | NUR ---
PT SEEN TODAY FOR DIET TOLERANCE ANALYSIS. NURSING REPORTED THAT ALTHOUGH PT IS ON THICKENED LIQUIDS, PT HAS BEEN DRINKING WATER AND CHEWING ICE ALL DAY WITH NO DIFFICULTIES; CLEARED PT FOR PARTICIPATION. PT AWAKE, ALERT, AND LONG-STTING IN BED UPON CLINCIAN ARRIVAL. PT DENIED PAIN; BREATHING WITH NC AT 1 LPM. PT PRESENTED WITH GENERALIZED WEAKNESS AND LOW, HOARSE VOCAL QUALITY.PT REPORTED SHE HAS HAD NO APPETITE, BUT HAS BEEN DRINKING NEPRO ALL DAY. PT WAS CLINCIAN ELEVATED HOB TO 90 DEGREES PRIOR TO PO INTAKE. PT WAS GIVEN TRIALS OF MECHANICAL SOFT AND THIN LIQUIDS WITH NO OVERT S/SX OF ASPIRATION. CLINICIAN RECOMMENDS THAT PT CONTINUE MECHANICAL SOFT DIET; HOWEVER, BE UPGRADED TO THIN LIQUIDS. SPEECH THERAPY WILL CONTINUE TO FOLLOW PT FOR DIET TOLERANCE, ADHERENCE TO SWALLOW PRECAUTIONS, AND TO ASSESS POTENTIAL FOR UPGRADE. CLINCIAN EXPLAINED RESULTS AND REVIEWED SWALLOW PRECAUTIONS WITH PT; PT VERBALIZED AGREEMENT AND UNDERSTANDING. NURSING INFORMED.
[2016-09-02 20:00] VITALS: BP 121/59
[2016-09-03 04:00] VITALS: BP 120/69
[2016-09-03 04:46] LABS: BASOPHILS 0.4 % (0.0-2.0); EOSINOPHILS 6.2 % (0-7); HEMATOCRIT 39.1 % (36.0-48.0); HEMOGLOBIN 11.9 g/dL (12-16); IMMATURE GRANULOCYTES 0.3 % (0-5); MCH 28.7 pg (26.0-34.0); MCHC 30.4 g/dL (31.0-37.0); MCV 94.4 fL (80.0-100.0); MONOCYTES 10.5 % (2-11); NEUTROPHILS 62.6 % (40-80); PLATELET COUNT 268 10x3/uL (130-400); RBC 4.14 10x6/uL (4.00-5.40); RDW 17.6 % (11.5-14.5); WBC 11.3 10x3/uL (4.8-10.8)
[2016-09-03 05:02] LABS: ANION GAP 10.6 mmol/L (8-16); CALCIUM 9.2 mg/dL (8.5-10.1); CARBON DIOXIDE 29.1 mmol/L (21.0-32.0); POTASSIUM - SERUM 3.7 mmol/L (3.5-5.1)
[2016-09-03 05:03] LABS: CREATININE - SERUM 4.1 mg/dL (0.6-1.3)
[2016-09-03 08:04] VITALS: BP 122/66
[2016-09-03 08:06] LABS: INR 3.63 (0.85-1.17); PROTIME 36.6 SECONDS (11.6-15.0)
--- NOTE | 2016-09-03 11:56 | NUR ---
Patient Name: MITZI SAGASTUME Encounter No: [id number] : 1940 Primary Insurance: [employer] CHOICE PPO [facility] [employer] Anticipated DC Date: 09-03-2016 Planned Disposition: Intermediate Facility External Planned Provider: [facility], MEDICARE REHAB BED DCP follow-up note: CM CALLED AND SPOKE TO JOHNNIE AT [facility], , REGARDING INSURANCE AUTHORIZATION FOR RETURN TO [facility] FOR REHAB. JOHNNIE REPORTS SHE HAS NOT RECEIVED AUTHORIZATION FROM PT'S INSURANCE COMPANY AND NEEDS WOUND CARE NOTES TO FAX TO INSURANCE FOR REVIEW. CM NOTIFIED PT AND RE FAXED WOUND NOTE AND NURSING ASSESSMENT TO [facility] AT [phone]. CM WAITING INSURANCE AUTHORIZATION FOR REHAB RETURN TO [facility]. WHEN INSURANCE AUTHORIZED AND ACCEPTED BY [facility] FOR RETURN, CM TO FAX DISCHARGE INSTRUCTIONS TO [facility] AT [phone]. [facility] TO [facility]RANGE VAN TRANSPORT, NURSE REPORT TO BE CALLED TO [facility] AT [phone]. In File Operator: Sonny Griggs
[2016-09-03 13:01] VITALS: BP 125/57
--- NOTE | 2016-09-03 14:05 | NUR ---
Nutrition Follow Up: Pt reported that she is not hungry. She said that she likes Nepro and is drinking it. Nursing reported that pt is eating and drinking very little. She denies being hungry and only wants to drink Nepro. Pt is eating 9% meal avg on a regular mechanical soft with nectar thick liquids diet. Pt is drinking 1-3 Nepro per day. +BM 09/01/16. Wt loss 4# since admit. Labs noted - BUN, Cr elevated. Meds noted including Megace, Albumin, Humalog. 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 Pt continues with very poor po intake. Pt continues not meeting est nutritional needs. Rec continue current diet, supplement regimen. Rec continue Megace. Rec consider TF if pt/family/MD agrees. RD following.
[2016-09-03 16:32] VITALS: BP 108/60
--- NOTE | 2016-09-03 18:57 | NUR ---
Patient Name: MITZI SAGASTUME Encounter No: [id number] : 1940 Primary Insurance: [employer] CHOICE PPO [employer] Anticipated DC Date: 09-06-2016 Planned Disposition: Senior Care Facility External Planned Provider: [facility], MEDICARE REHAB BED DCP follow-up note: SEVERAL TIMES THROUGHOUT THE BUSINESS DAY, CM CALLED AND SPOKE TO JOHNNIE AT [facility], , REGARDING INSURANCE AUTHORIZATION FOR RETURN TO [facility] FOR REHAB. JOHNNIE REPORTS SHE HAS NOT RECEIVED AUTHORIZATION FROM PT'S INSURANCE COMPANY. JOHNNIE EXPLAINED THAT PT WAS NOT ORIGINALLY IN A CHECK PROCESSING CLERK CARE BED AND WAS IN A REHAB BED. TO RETURN, SHE REQUIRES INSURANCE AUTHORIZATION AND OF 5PM TODAY, INSURANCE ADVISED THEY SUBMITTED TO INSURANCE PHYSICIAN FOR REVIEW. PT AND DAUGHTER NOTIFIED IN ROOM. BEDSIDE NURSE NOTIFIED. CM WAITING INSURANCE AUTHORIZATION FOR REHAB RETURN TO [facility]. WHEN INSURANCE AUTHORIZED AND ACCEPTED BY [facility] FOR RETURN, CM TO FAX DISCHARGE INSTRUCTIONS TO [facility] AT [phone]. [facility] TO ARRANGE VAN TRANSPORT, NURSE REPORT TO BE CALLED TO [facility] AT [phone]. Sonny Griggs, CASE MANAGEMENT
[2016-09-03 22:19] VITALS: BP 130/66
--- NOTE | 2016-09-03 22:36 | NUR ---
INITIAL ROUNDS COMPELTED AT 1915 HRS. PT DENIED ANY DISCOMFORT. REFUSES TELEMETRY. ASSESSSMENT COMPETED AT 2015 HRS. VSS. R CHEST HEMOSPLIT INTACT. NO IV. LUNGS DIMIISHED IN BASES BILAT WITH SCATTERED CRACKLES NOTED. DRESSING REMOVED FORM HEELS WITH NO BREAKDOWN NOTED. ALMAZAN FROM PREVIOUS SORES VISIBLE. PT INCONTINENT OF STOOL. INCONTINENT CARE DONE. DRESSING TO COCCYX CLEAN, DRY AND INTACT. REPOSITONED IN BED FOR COMFORT. PM FSBS 171. 2 UNITS HUMALOG GIVEN SUB-Q TO UPPER L ARM. PM MEDS GIVNE. PT REPOSTIONED INBED FOR COMFORT AGAIN AT 2210 HRS. PT CURRENTLY RSTING WITH EYES CLOSED. RESP EVEN AND REGULAR. SR UP X2, CALL LIGHT WITHIN REACH, 1SR STEP AIR OVERLAY IN USE AND BED ALARM ON.
--- NOTE | 2016-09-04 00:01 | NUR ---
PT REPOSITIONED IN BED FOR COMFORT. CALL LIGHT WITHIN REACH.
--- NOTE | 2016-09-04 01:57 | NUR ---
PT RESTING WITH EYES CLOSED. RESP EVEN AND REGULAR. SR UP X2, CALL LIGHT WITHIN REACH.
--- NOTE | 2016-09-04 04:11 | NUR ---
REPOSITIONED IN BED FOR COMFORT. WILL CONTINUE TO MONITOR.
[2016-09-04 04:29] VITALS: BP 144/86
--- NOTE | 2016-09-04 05:11 | NUR ---
DRESSING TO COCCYX OFF DURING BED BATH. WOUND LOOSELY PACKED WIT 1/4 STRENGHT DAKINS WET TO DRY GAUZE AND COVERED WITH STERILE 4X4'S USING STERILE TECHNIQUE. PT TOLERATED WELL. REPOSITIONED IN BED FOR COMFORT. WILL CONTINUE TO MONITOR.
--- NOTE | 2016-09-04 06:47 | NUR ---
VSS THROUGHUOT NIGHT. PT STATED NORCO CONTROLLED PAIN. PT TURNED FREQ DURING SHIFT. NEEDS MET; WILL CONTINUE TO MONITOR.
[2016-09-04 06:55] LABS: ANION GAP 16.2 mmol/L (8-16); CALCIUM 8.7 mg/dL (8.5-10.1); CARBON DIOXIDE 24.2 mmol/L (21.0-32.0); CREATININE - SERUM 4.4 mg/dL (0.6-1.3); PHOSPHOROUS 3.5 mg/dL (2.5-4.9)
[2016-09-04 07:00] LABS: BASOPHILS 0.5 % (0.0-2.0); EOSINOPHILS 5.9 % (0-7); HEMATOCRIT 37.2 % (36.0-48.0); HEMOGLOBIN 11.5 g/dL (12-16); IMMATURE GRANULOCYTES 0.4 % (0-5); LYMPHOCYTES 22.3 % (15-50); MCHC 30.9 g/dL (31.0-37.0); MCV 93.9 fL (80.0-100.0); MEAN PLATELET VOLUME 10.1 fL (7.4-10.4); MONOCYTES 9.4 % (2-11); NEUTROPHILS 61.5 % (40-80); PLATELET COUNT 216 10x3/uL (130-400); POTASSIUM - SERUM 4.4 mmol/L (3.5-5.1); RBC 3.96 10x6/uL (4.00-5.40); RDW 17.7 % (11.5-14.5)
--- NOTE | 2016-09-04 07:34 | NUR ---
RESTING QUIETLY RESP UNLABORED DENIES ANY NEEDS AT THIS TIME
[2016-09-04 07:45] LABS: PROTIME 29.4 SECONDS (11.6-15.0)
[2016-09-04 07:47] LABS: INR 2.77 (0.85-1.17)
--- NOTE | 2016-09-04 07:48 | NUR ---
ASSESSMENT COMPLETED. DENIES ANY NEEDS. RIGHT CHEST HEMOSPLIT . WOUND TO COCCYX WITH DRSG DRY AND INTACT. J TUBE TO ABD. PT IS ON A FIRST STEP BED.ALERT AND ORIENTED. WILL MONITOR
[2016-09-04 09:04] VITALS: BP 117/63
[2016-09-04 12:23] VITALS: BP 106/55
--- NOTE | 2016-09-04 13:45 | NUR ---
REPOSITIONED FOR COMFORT. NO NEEDS VOICED
[2016-09-04 16:19] VITALS: BP 115/56
--- NOTE | 2016-09-04 16:38 | NUR ---
DC Planning Note: Earlier in shift CM contacted Lito with [facility] for transfer possibility today, pending insurance prior authorization. As of 1650 insurance has not prior authorized per Rosio with [facility] and request we CB in the am to check again. Mary Mittal RN CM
--- NOTE | 2016-09-04 16:50 | NUR ---
TURNED TO RIGHT SIDE. DENIES ANY NEEDS. SR UP WITH CALL LIGHT IN REACH
[2016-09-04 20:59] VITALS: BP 125/62
--- NOTE | 2016-09-04 23:14 | NUR ---
PT INCONTINENT OF STOOL AT SHIFT CHANGE. PT CLEANED. REPOSIITONED IN BED FOR COMFORT. ASSESSMENT COMPLETED AT 2000 HRS. VSS. O2 2.5LNC. NO IV. R CHEST HEMOSPLIT CLEAN, DRY AND INTACT. NUMEROUS SCABS TO TORSO NOTED. DRESSING TO COCCYX CLEAN' DRY AND INTACT. HEELS ELEVATED. J-TUBE CLAMPED. DRESSING CLEAN, DRY AND INTACT. PT ON 1ST STEP AIR OVERLAY MATTRESS. PM FSBS 114. NO COVERAGE NEEDED. PM MEDS GIVEN. PT CURRENTLY RESTING WITH EYES CLOSED. RESP EVEN AND REGULAR. SR UP X2, CALL LIGHT WITHIN REACH.
[2016-09-05 00:12] VITALS: BP 125/70
--- NOTE | 2016-09-05 00:54 | NUR ---
REPOSITIONED IN BED FOR COMFORT. WILL CONTINUE TO MONITOR.
--- NOTE | 2016-09-05 02:25 | NUR ---
PT RESTING WITH EYES CLOSED. RESP EVEN AND REGULAR. SR UP X2, CALL LIGHT WITHIN REACH.
[2016-09-05 04:00] VITALS: BP 121/76
--- NOTE | 2016-09-05 04:54 | NUR ---
PT REPOSITIONED INBED FOR COMFORT. PT DENIES ANY DISCOMFORT. WILL CONTINUE TO MONITOR.
[2016-09-05 06:03] LABS: BASOPHILS 0.6 % (0.0-2.0); EOSINOPHILS 7.7 % (0-7); HEMOGLOBIN 10.9 g/dL (12-16); IMMATURE GRANULOCYTES 0.4 % (0-5); MCH 29.1 pg (26.0-34.0); MCHC 31.1 g/dL (31.0-37.0); MCV 93.3 fL (80.0-100.0); MEAN PLATELET VOLUME 10.2 fL (7.4-10.4); MONOCYTES 9.4 % (2-11); NEUTROPHILS 62.9 % (40-80); PLATELET COUNT 232 10x3/uL (130-400); RBC 3.75 10x6/uL (4.00-5.40); RDW 17.2 % (11.5-14.5); WBC 11.9 10x3/uL (4.8-10.8)
[2016-09-05 06:32] LABS: ANION GAP 13.1 mmol/L (8-16); CALCIUM 8.6 mg/dL (8.5-10.1); CARBON DIOXIDE 28.6 mmol/L (21.0-32.0); CREATININE - SERUM 5.3 mg/dL (0.6-1.3); PHOSPHOROUS 3.9 mg/dL (2.5-4.9)
[2016-09-05 06:33] LABS: POTASSIUM - SERUM 3.7 mmol/L (3.5-5.1)
--- NOTE | 2016-09-05 06:43 | NUR ---
VSS THROUGHOUT NIGHT. PT DENIED ANY DISCOMFORT. AM FSBS 114. NO COVERAGE NEEDED. NEEDS MET; WILL CONTINUE TO MONITOR.
--- NOTE | 2016-09-05 08:01 | NUR ---
ASSESSMENT COMPLETED. REPOSITIONED TO RIGHT SIDE. O2 AT 2.5 L/M PER NC. NO TELEMERTY. J TUBE TO ABD NOT IN USE.PT IS ON A 1ST STEP BED. ALANIS KHAN COOXY CLEAN AND DRY.HEMOSPLIT TO RIGHT CHEST. WILL MONITOR
[2016-09-05 08:40] VITALS: BP 101/55
--- NOTE | 2016-09-05 10:07 | NUR ---
CM REASSESSMENT NOTE: NI CALLED DANIELA AT [facility] TO SEE IF AUTHORIZATION FROM INSURANCE COMPANY HAD BEEN SENT. DANIELA STATED TO CALL BACK TUESDAY THAT THERE WAS NO AUTHORIZATION YET FROM [place]. CM WILL CONTINUE TO FOLLOW PATIENT WITH D/C NEEDS AND PLANS.
--- NOTE | 2016-09-05 12:36 | NUR ---
INCONTINENT CARE BEING GIVEN FOR STOOL INCONTINENCE PT TOLERATED WELL
--- NOTE | 2016-09-05 13:17 | NUR ---
REPOSITIONED AND BATH GIVEN. DRSG CHANGED. WILL MONITOR
[2016-09-05 13:46] VITALS: BP 128/73
[2016-09-05 15:58] VITALS: BP 133/60
--- NOTE | 2016-09-05 17:33 | NUR ---
REPOSITIONED FOR COMFORT. DENIES ANY NEEDS. CALL LIGHT IN REACH WITH SR UP
--- NOTE | 2016-09-05 19:00 | NUR ---
INITIAL ROUNDS COMPLETED. PT DENIES ANY DISCOMFORT. WILL CONTINUE TO MONITOR.
[2016-09-05 20:15] VITALS: BP 106/50
--- NOTE | 2016-09-05 23:15 | NUR ---
PT INCONTINENT OF STOOL AT 1999 HRS. STOOL INTO COCCYX DRESSING. PT CLEANED AND WOUND DRESSING REDONE USING STERILE TECHNIQUE. DAKIN'S 06/16 WE TO DRY PACKED LOOSELY AND COVERED WITH 4X4'S. REPOSITIONED IN BED FOR COMFORT. ASSESSMENT COMPLETED AT 2009 HRS. R HEMOSPLIT CLEAN,DRY AND INTACT. O2 2LNC. LUNGS DIMINISHED IN BASES BILAT. NUMEROUS SMALL SORES NOTED TO ABD. LUNGS DIMINISHED IN BASES BILAT. R SIDED WEAKNESS NOTED. PM FSBS 125. NO COVERAGE NEEDED. PM MEDS GIVEN. PT CURRENTLY RESTING WITH EYES CLOSED. RESP EVEN AND REGULAR. SR UP X2, CALL LIGHT WITHIN REACH.
[2016-09-06] VITALS (7 sets, daily range): BP systolic 116–155; BP diastolic 40–90
--- NOTE | 2016-09-06 00:27 | NUR ---
PT RESPOSITIONED IN BED FOR COMFORT. WILL CONTINUE TO MONITOR. SR UP X2, CALL LIGHT WITHIN REACH.
--- NOTE | 2016-09-06 01:31 | NUR ---
REPOSITIONED IN BED FOR COMFORT. CALL LIGHT WITHIN REACH.
--- NOTE | 2016-09-06 04:37 | NUR ---
PT REPOSITIONED IN BED FOR COMFORT. CALL LIGHT WITHIN REACH.
[2016-09-06 04:40] LABS: BASOPHILS 0.4 % (0.0-2.0); EOSINOPHILS 7.7 % (0-7); HEMATOCRIT 33.5 % (36.0-48.0); HEMOGLOBIN 10.7 g/dL (12-16); IMMATURE GRANULOCYTES 0.3 % (0-5); LYMPHOCYTES 17.4 % (15-50); MCH 29.6 pg (26.0-34.0); MCHC 31.9 g/dL (31.0-37.0); MCV 92.5 fL (80.0-100.0); MEAN PLATELET VOLUME 10.2 fL (7.4-10.4); MONOCYTES 10.7 % (2-11); NEUTROPHILS 63.5 % (40-80); PLATELET COUNT 245 10x3/uL (130-400); RBC 3.62 10x6/uL (4.00-5.40); RDW 17.1 % (11.5-14.5); WBC 11.3 10x3/uL (4.8-10.8)
[2016-09-06 05:02] LABS: ANION GAP 14.4 mmol/L (8-16); CALCIUM 8.5 mg/dL (8.5-10.1); CARBON DIOXIDE 25.6 mmol/L (21.0-32.0); CREATININE - SERUM 5.8 mg/dL (0.6-1.3); PHOSPHOROUS 4.1 mg/dL (2.5-4.9)
--- NOTE | 2016-09-06 06:30 | NUR ---
VSS THROUGJOUT NIGHT. PT DENIED ANYDISCOMFORT. NEEDS MET; WILL CONTINUE TO MONITOR.
--- NOTE | 2016-09-06 11:00 | NUR ---
3109 PATIENT TURNED AND CLEANED OF INCONT BM. COCCYX DRESSING CDI. WAS CHANGED ON INTER COM SERVICER. PATIENT TURNED ON LEFT SIDE.
--- NOTE | 2016-09-06 13:13 | NUR ---
Mrs. Calzada had bedside hemodialysis today via her right chest hemodialysis today via her right chest hemosplit from 1000 until 1300. Average blood flow was 350 mls/minute. Net fluid removed was 3000 mls. Gave one gram of Vancomycin on dialysis. Removed the 250 mls from the vanc and a net of 3000 mls. Post vital signs were: B/P:135/88, HR: 113, Temp:98.8, Resps:16.
--- NOTE | 2016-09-06 15:27 | NUR ---
Nutrition follow-up: Recommend nocturnal feedings of Nerpo from 1999 - 0800 @ 30 ml/hr via J-tube to supplement pts po intake during the day. RDN following.
--- NOTE | 2016-09-06 19:30 | NUR ---
LYING IN BED ON RT SIDE ON FIRST STEP MATTRESS, VOICES NO C/O PAIN OR DISCOMFORT AT THIS TIME. HOB UP SR U X2, C/L IN REACH. O2 @ 2L VIA NC IN PLACE. RT CHEST HEMESPLIT INTACT AND LOCKED, REFUSING TELEMETRY, COCCYX DRSG CDI. J TUBE INTACT AND LOCKED. TURN Q 2 HOURS FOR C & C. MARIELA WELL. CONTINUE TO MONITOR.
[2016-09-07 00:11] VITALS: BP 110/49
--- NOTE | 2016-09-07 02:55 | NUR ---
EYES CLOSED, RESP UNLAB WITH NO S/S OF ACUTE DISTRESS NOTED. C/L IN REACH, CONTINUE TO MONITOR.
[2016-09-07 04:00] VITALS: BP 113/55
[2016-09-07 05:16] LABS: BASOPHILS 0.4 % (0.0-2.0); EOSINOPHILS 4.7 % (0-7); HEMATOCRIT 35.3 % (36.0-48.0); HEMOGLOBIN 10.7 g/dL (12-16); IMMATURE GRANULOCYTES 0.3 % (0-5); LYMPHOCYTES 14.7 % (15-50); MCH 28.5 pg (26.0-34.0); MCHC 30.3 g/dL (31.0-37.0); MCV 94.1 fL (80.0-100.0); MEAN PLATELET VOLUME 10.3 fL (7.4-10.4); MONOCYTES 12.5 % (2-11); NEUTROPHILS 67.4 % (40-80); PLATELET COUNT 256 10x3/uL (130-400); RBC 3.75 10x6/uL (4.00-5.40); RDW 17.4 % (11.5-14.5); WBC 11.8 10x3/uL (4.8-10.8)
[2016-09-07 05:28] LABS: INR 1.42 (0.85-1.17); PROTIME 17.3 SECONDS (11.6-15.0)
[2016-09-07 05:58] LABS: ANION GAP 14.7 mmol/L (8-16); CALCIUM 8.5 mg/dL (8.5-10.1); CARBON DIOXIDE 25.3 mmol/L (21.0-32.0); PHOSPHOROUS 3.9 mg/dL (2.5-4.9)
[2016-09-07 05:59] LABS: CREATININE - SERUM 4.1 mg/dL (0.6-1.3)
[2016-09-07 08:01] VITALS: BP 151/74
--- NOTE | 2016-09-07 10:37 | NUR ---
PT REFUSED HER MEGACE SOLUTION AND STATES SHE ONLY WILL TAKE IT IN A PILL FORM. PT SWALLOWED MORNING MEDICATIONS WITHOUT ANY DIFFICULTIES. RESTING AND STATES SHE IS COMFORTABLE TURNED ONTO HER RIGHT SIDE. PT DENIES ANY CURRENT NEEDS AT THIS TIME. CL IN REACH, BED IN LOWEST, SIDE RAILS X2. WILL CPOC.
[2016-09-07 11:44] VITALS: BP 153/69
[2016-09-07 14:48] VITALS: BP 139/62
--- NOTE | 2016-09-07 15:58 | NUR ---
Patient Name: MITZI SAGASTUME Encounter No: [id number] : 1940 Primary Insurance: [employer] CHOICE PPO MCR ADVANT Anticipated DC Date: 09-06-2016 Planned Disposition: Fpc Facility External Planned Provider: [facility], USP CARE MEDICAID BED DCP follow-up note: CM RECEIVED CALL FROM MIN OF [facility], , INSURANCE HAS DENIED REHAB SERVICES, THEY WILL CONSIDER TAKING PT BACK FOR USP CARE IF PT DESIRES. CM SPOKE TO PT IN ROOM, PT REPORTS SHE WANTS TO RETURN TO [place] AND IF FOR STRAIGHTENER GUN PARTS CARE, THEN OK. CM PROVIDED AND DISCUSSED IMPORTANT MESSAGE FROM MEDICARE. CM CALLED PT'S DAUGHTER, CHERRY, , DISCUSSED ABOVE. CHERRY IN AGREEMENT WITH RETURN TO [place] FOR [facility] GUN PARTS CARE. CM CALLED MIN OF [facility] WHO REPORTS THEY CANNOT ACCEPT TODAY, THEY WILL NEED TO CHECK AND INSURE THAT ALL FINANCIALS HAVE BEEN COMPLETED BY FAMILY AND WILL CALL PT'S DAUGHTER TO MAKE SURE EVERYTHING IS IN PLACE. [facility] ANTICIPATES TAKING PT TOMORROW. PT NOTIFIED AND IS IN AGREEMENT WITH DISCHARGE TO [place] FOR USP CARE TOMORROW AFTER DIALYSIS. FOR DISCHARGE TOMORROW, NURSE REPORT TO BE CALLED TO [facility], , FAX DISCHARGE INFORMATION TO [facility], . [place] TO ARRANGE VAN TRANSPORT (PT HAS WHEELCHAIR AND TRANSFER SLING WITH HER IN ROOM). Sonny Griggs, CASE MANAGEMENT
[2016-09-07 22:26] VITALS: BP 139/81
[2016-09-08 01:25] VITALS: BP 153/85
[2016-09-08 05:21] LABS: BASOPHILS 0.5 % (0.0-2.0); EOSINOPHILS 4.8 % (0-7); HEMATOCRIT 34.1 % (36.0-48.0); HEMOGLOBIN 10.5 g/dL (12-16); IMMATURE GRANULOCYTES 0.3 % (0-5); LYMPHOCYTES 18.7 % (15-50); MCH 28.6 pg (26.0-34.0); MCHC 30.8 g/dL (31.0-37.0); MCV 92.9 fL (80.0-100.0); MEAN PLATELET VOLUME 10.2 fL (7.4-10.4); MONOCYTES 11.2 % (2-11); NEUTROPHILS 64.5 % (40-80); PLATELET COUNT 249 10x3/uL (130-400); RBC 3.67 10x6/uL (4.00-5.40); RDW 17.2 % (11.5-14.5); WBC 10.4 10x3/uL (4.8-10.8)
[2016-09-08 05:36] LABS: ANION GAP 9.9 mmol/L (8-16); CALCIUM 9.1 mg/dL (8.5-10.1); CREATININE - SERUM 4.9 mg/dL (0.6-1.3); PHOSPHOROUS 4.3 mg/dL (2.5-4.9); POTASSIUM - SERUM 3.9 mmol/L (3.5-5.1)
[2016-09-08 05:37] LABS: INR 1.36 (0.85-1.17); PROTIME 16.6 SECONDS (11.6-15.0)
[2016-09-08 05:45] VITALS: BP 119/75
[2016-09-08 07:57] VITALS: BP 131/66
[2016-09-08 11:27] VITALS: BP 134/81
--- NOTE | 2016-09-08 12:15 | NUR ---
Patient Name: MITZI SAGASTUME Encounter No: [id number] : 1940 Primary Insurance: [employer] CHOICE PPO MCR ADVANT Anticipated DC Date: 09-06-2016 Planned Disposition: Mcfp Facility External Planned Provider: [facility], ALF CARE MEDICAID BED DCP follow-up note: CM NOTIFIED BY BEDSIDE NURSE OF POSITIVE BLOOD CULTURE. CM SPOKE TO PT IN ROOM, PT IN AGREEMENT WITH DISCHARGE TO [place] TODAY, WANTS TO LEAVE SOON POSSIBLE FOLLOWING DIALYSIS. DIALYSIS NURSE ARLETTE REPORTS THAT VANC WILL GE GIVEN AT DIALYSIS. CM FAXED UPDATE TO [facility] AND CALLED MIN AT [facility], ; CM EXPLAINED THAT PT IS READY FOR DISCHARGE TODAY. MIN REPORTS RECEIVING UPDATE AND WILL REVIEW WITH NURSING AND CALL CM WITH ADMISSION DETERMINATION. WHEN ACCEPTED BY [facility], NURSE REPORT TO BE CALLED TO [facility], , FAX DISCHARGE INFORMATION TO [facility], . [place] TO ARRANGE VAN TRANSPORT (PT HAS WHEELCHAIR AND TRANSFER SLING WITH HER IN ROOM). CM CONTINUES TO AWAIT ADMISSION DETERMINATION FROM [facility] FOR ALF CARE. Sonny Griggs, CASE MANAGEMENT
--- NOTE | 2016-09-08 12:28 | NUR ---
Patient Name: MITZI SAGASTUME Encounter No: [id number] : 1940 Primary Insurance: [employer] CHOICE PPO MCR ADVANT Anticipated DC Date: 09-08-2016 Planned Disposition: Penitentiary Facility External Planned Provider: [facility], GROUP HOME CARE MEDICAID BED DCP follow-up note: CM RECEIVED CALL FROM MIN OF [facility] TO ACCEPT PT TODAY AND WILL PLACE IN ISOLATION AT THE FACILITY. [facility] TO ARRANGE VAN TRANSPORT AND WILL CALL CM SHORTLY. NI PAGED DR. CASTELLON TO INFORM OF DISCHARGE ARRANGEMENTS TO [facility] FOR GLOBAL CLIMATE CHANGE RESEARCHER CARE TODAY. PENDING DISCHARGE ORDER FROM NURSE REPORT TO BE CALLED TO [facility], , FAX DISCHARGE INFORMATION TO [facility], . [place] TO ARRANGE VAN TRANSPORT (PT HAS WHEELCHAIR AND TRANSFER SLING WITH HER IN ROOM). Sonny Griggs
--- NOTE | 2016-09-08 13:03 | NUR ---
Mrs. Calzada had bedside hemodialysis today via her right chest hemosplit. Average blood flow was 400 mls/minute. Net fluid removed was 3000 mls. Removed the 250 mls from the gram of vancomycin that was infused on dialysis as well. Post vital signs were: B/P:1100/76, HR:94, Temp:97.6, Resps:16.
--- NOTE | 2016-09-08 14:49 | NUR ---
Patient Name: MITZI SAGASTUME Encounter No: [id number] : 1940 Primary Insurance: [employer] CHOICE PPO MCR ADVANT Anticipated DC Date: 09-08-2016 Planned Disposition: Chcf Facility External Planned Provider: [facility], PENITENTIARY CARE MEDICAID BED DCP follow-up note: CM RECEIVED DISCHARGE ORDER, NOTIFIED MIN AT [place], ; MIN WILL CALL CM WITH VAN SPECIFICATIONS WRITER TIME. CM NOTIFIED PT. CM FAXED DISCHARGE INFORMATION TO [facility] AT [phone]. NURSE REPORT TO BE CALLED TO [facility], , [place] TO ARRANGE VAN TRANSPORT (PT HAS WHEELCHAIR AND TRANSFER SLING WITH HER IN ROOM). Sonny Griggs, CASE MANAGEMENT
--- NOTE | 2016-09-08 15:37 | NUR ---
CALLED REPORT TO NURSE YULISSA VALENCIA EL MONTE
--- NOTE | 2016-09-08 16:24 | NUR ---
CALLED REPORT TO [facility] AND PT WAS TRANSPORTED THERE VIA THEIR VAN SYSTEM. BELONGINGS COLLECTED PT READY TO LEAVE NOW. NO FURTHER NEEDS.
== END 2016-09-08 16:24 | DRG 291 ==
LOC: D.ER 11:04 → D.M2 13:26
PROVIDERS: Family Medicine; Internal Medicine Nephrology; Internal Medicine Pulmonary Disease; Physician Assistant; ADMIT Internal Medicine
PROC: 5A1D60Z (ICD-10-PCS; principal; 2016-08-25)
DX: I13.2 Hypertensive heart and chronic kidney disease with heart failure and with stage 5 chronic kidney disease, or end stage renal disease (principal); J18.9 Pneumonia, unspecified organism; J96.01 Acute respiratory failure with hypoxia; N18.6 End stage renal disease; I50.22 Chronic systolic (congestive) heart failure; E11.22 Type 2 diabetes mellitus with diabetic chronic kidney disease; I48.91 Unspecified atrial fibrillation; D63.1 Anemia in chronic kidney disease; E87.6 Hypokalemia; Z66 Do not resuscitate; J20.9 Acute bronchitis, unspecified; E88.09 Other disorders of plasma-protein metabolism, not elsewhere classified; Z86.73 Personal history of transient ischemic attack (TIA), and cerebral infarction without residual deficits

== ENCOUNTER 2016-11-08 20:49 | Emergency (ER) | payer MEDICARE ==
[2016-08-26 13:15] VITALS: BMI 32.1
== END 2016-11-08 22:30 | disposition home or self-care (01) ==
LOC: D.ER 20:49
DX: I73.9 Peripheral vascular disease, unspecified (principal); N18.6 End stage renal disease; I50.9 Heart failure, unspecified; Z99.2 Dependence on renal dialysis

== ENCOUNTER 2017-01-07 13:45 | Inpatient (IN) | payer MEDICARE ==
[~2017-01-07] VITALS: Ht 162.6 cm; Wt 83.5 kg
[2017-01-07 16:25] LABS: BASOPHILS 0.2 % (0-2); EOSINOPHILS 0.3 % (0-7); HEMATOCRIT 36.4 % (36.0-48.0); HEMOGLOBIN 11.5 g/dL (12-16); IMMATURE GRANULOCYTES 0.2 % (0-5); LYMPHOCYTES 14.1 % (15-50); MCH 30.4 pg (26.0-34.0); MCHC 31.6 g/dL (31.0-37.0); MCV 96.3 fL (80.0-100.0); MONOCYTES 2.8 % (2-11); NEUTROPHILS 82.4 % (40-80); PLATELET COUNT 249 10x3/uL (130-400); RBC 3.78 10x6/uL (4.00-5.40); RDW 15.1 % (11.5-14.5); WBC 9.2 10x3/uL (4.8-10.8)
[2017-01-07 17:13] LABS: ALBUMIN 2.6 g/dL (3.4-5.0); BILIRUBIN - TOTAL 1.09 mg/dL (0.2-1.3); CALCIUM 7.8 mg/dL (8.5-10.1); CARBON DIOXIDE 18.8 mmol/L (21.0-32.0); CREATININE - SERUM 8.6 mg/dL (0.6-1.3); PROTEIN - SERUM 7.5 g/dL (6.4-8.2)
[2017-01-07 17:42] LABS: ANION GAP 24.9 mmol/L (8-16); POTASSIUM - SERUM 6.7 mmol/L (3.5-5.1)
--- NOTE | 2017-01-07 22:27 | NUR ---
PT BROUGHT UP FROM DIALYSIS VIA [facility] WITH DX HYPERKALEMIA, ESRD. PT HAS C/O NAUSEA ON ADMISSION. WILL CONTINUE TO MONITOR.
[2017-01-07 22:42] VITALS: BP 116/60; BMI 31.7
[2017-01-08] VITALS: BP 116/60
--- NOTE | 2017-01-08 00:08 | NUR ---
ZOFRAN 4MG SIVP GIVEN FOR C/O NAUSEA. TELE PLACED. UCAF/FLUTTER PER CM HR 127. PT STATES THAT IS HER NORMAL. WILL CONTINUE TO MONITOR. SR UP X2, CALL LIGHT WITHIN REACH AND BED ALARM ON.
[2017-01-08] MEDS ORDERED: TYLENOL W/CODEI1 TAB PO (00:47)
[2017-01-08] MEDS ORDERED: ZOFRAN4 MG PO (00:48)
[2017-01-08] MEDS ORDERED: SENSIPAR30 MG PO (00:48)
--- NOTE | 2017-01-08 00:57 | NUR ---
PT REPOSITIONED INBED FOR COMFORT. DENIES ANY NAUSEA AT THIS TIME. STATES SHE LIVES WITH HER DAUGHTER NEGRO WILSON BUT DOESN'T KNOW PHINE NUMBER. WILL CONTINUE TO MONITOR. SR UP X2, CALL LIGHT WITHIN REACH AND BED ALARM ON.
--- NOTE | 2017-01-08 03:28 | NUR ---
PT RESTING WITH EYES CLOSED. RESP EVEN AND REGULAR. SR UP X2, CALL LIGHT WITHIN REACH.
[2017-01-08 04:00] VITALS: BP 100/49
--- NOTE | 2017-01-08 06:06 | NUR ---
VSS. A-FLUTTER PER CM HR IN 120'S. PT HAS DENIED NAUSEA SINCE ZOFRAN ADMINISTRATION, NEEDS MET; WILL CONTINUE TO MONITOR.
[2017-01-08 06:39] LABS: BASOPHILS 0.5 % (0-2); EOSINOPHILS 1.5 % (0-7); HEMATOCRIT 31.8 % (36.0-48.0); HEMOGLOBIN 10.1 g/dL (12-16); IMMATURE GRANULOCYTES 0.2 % (0-5); LYMPHOCYTES 22.7 % (15-50); MCH 30.1 pg (26.0-34.0); MCHC 31.8 g/dL (31.0-37.0); MCV 94.9 fL (80.0-100.0); MEAN PLATELET VOLUME 9.6 fL (7.4-10.4); MONOCYTES 8.2 % (2-11); NEUTROPHILS 66.9 % (40-80); PLATELET COUNT 257 10x3/uL (130-400); RBC 3.35 10x6/uL (4.00-5.40); RDW 15.1 % (11.5-14.5)
[2017-01-08 06:44] LABS: WBC 6.1 10x3/uL (4.8-10.8)
[2017-01-08 06:50] LABS: CALCIUM 7.6 mg/dL (8.5-10.1)
[2017-01-08 06:52] LABS: ANION GAP 13.1 mmol/L (8-16); CARBON DIOXIDE 26.8 mmol/L (21.0-32.0); CREATININE - SERUM 4.9 mg/dL (0.6-1.3); POTASSIUM - SERUM 3.9 mmol/L (3.5-5.1)
--- NOTE | 2017-01-08 07:49 | NUR ---
AM ROUNDS - PT IS IN BED AND APPEARS TO BE SLEEPING WITH EQUAL AND NON LABORED BREATHING. PT IS ON RA. IV TO LEFT UPPER ARM, SL. MONITOR SHOWS [facility] AFIB, HR 116. BED AT LOWEST POSITION. SIDE RAILS UP X2. CALL COLIN IN USE/REACH. WILL CONTINUE TO MONITOR
[2017-01-08 08:00] VITALS: BP 114/61
--- NOTE | 2017-01-08 09:52 | NUR ---
PT C/O NAUSEA. ZOFRAN GIVEN. NO FUTHER NEEDS AT THIS TIME. WILL CONTINUE TO MONITOR.
[2017-01-08 11:49] VITALS: Ht 162.6 cm; Wt 83.5 kg
[2017-01-08 12:00] VITALS: BP 99/49
[2017-01-08 16:00] VITALS: BP 95/55
[2017-01-08 20:00] VITALS: BP 99/49
--- NOTE | 2017-01-08 20:00 | NUR ---
PT RESTING IN BED. DENIES ANY NEEDS. NO S/S OF DISTRESS. BED LOW CALLLIGHT WITHIN REACH WILL CONTINUE TO MONITOR
--- NOTE | 2017-01-08 22:50 | NUR ---
PT ON BEDPAN APPROX 40 ML OF DARK URINE. PAD CHANGED AND PT CLEANED. NEW BANDAGE PUT ON BUTTOCK. COCCYX AREA HAS A WOUND. CLEANED WITH WOUND INVESTIGATIONS CHIEF AND A BANDAGE PUT ON. LEFT ARM BY ELBOW HAS A SKIN TEAR. CHANGED DRESSING THERE. PUT A TEGADERM OVER IT. RIGHT LEG ALSO HAS A SORE LEFT PADDING ON AND COVERED WITH TEGADERM. PT STATES COCCYX WOUND IS FROM [place] WHEN SHE WAS IN [place]. PT STATES WOUND ON RIGHT LEG IS FROM A FALL A WEEK OR SO AGO AND SKIN TEAR IS UNKNOWN. WILL CONTINUE TO MONIOR, PT DENIES ANY NEEDS AT THIS TIME
[2017-01-09] VITALS: BP 109/39
[2017-01-09 04:00] VITALS: BP 99/47
--- NOTE | 2017-01-09 05:02 | NUR ---
PT C/O NAUSEA. ZOFRAN GIVEN. PEDAL COMPRESSION APPLIED. PT DENIES ANY NEEDS, NO S/S OF DISTRESS. BED LOW CALL LIGHT IN REACH. WILL CONTINUE TO MONITOR PT WANTS TO CHANGE BREAKFAST ORDER TO DRY CEREAL, MILK AND CALLE. WILL TELL IN REPORT
--- NOTE | 2017-01-09 06:16 | NUR ---
PT ASLEEP. RESPIRATIONS EVEN AND UNLABORED. NO S/S OF DISTRESS WILL CONTINUE TO MONITOR
[2017-01-09 08:00] VITALS: BP 94/55
--- NOTE | 2017-01-09 08:01 | NUR ---
AM ROUNDS - PT IN BED AND AWAKE. SCDS ARE ON. IV TO UPPER LEFT ARM, SL. RIGHT CHEST HEMOSPLIT, DIALYSIS M-W-. MONITOR SHOWING UNCON AFIB, HR 103. NO NEEDS AT THIS TIME. BED AT LOWEST LEVEL/ CALL COLIN IN USE/REACH. SIDE RAILS UP X2/ WILL CONTINUE TO MONITOR
[2017-01-09 12:00] VITALS: BP 96/48
--- NOTE | 2017-01-09 14:36 | NUR ---
D/C - WRITTEN AND VERBAL D/C INSTRUCTIONS GIVENT O PT AND PT'S SON. IV TO LEFT UPPER ARM D/C, CATH TIP INTACT. 2X2 GAUZE APPLIED AND SECURED WITH TAPE. PT TOLERATED WELL. TECHNICIAN AUTOMATED EQUIPMENT D/C AND RETURNED TO [employer]BOSS DEVELOPER. PT LEFT FLOOR VIA WHEELCHAIR WITH COMPLEX CARE NURSE. WILL D/C
== END 2017-01-09 14:43 | disposition home or self-care (01) | DRG 640 ==
LOC: D.ER 13:45 → D.M2 18:08
PROVIDERS: Emergency Medicine; ADMIT Internal Medicine
PROC: 5A1D00Z (ICD-10-PCS; principal; 2017-01-07)
DX: E87.5 Hyperkalemia (principal); N18.6 End stage renal disease; I13.2 Hypertensive heart and chronic kidney disease with heart failure and with stage 5 chronic kidney disease, or end stage renal disease; E11.22 Type 2 diabetes mellitus with diabetic chronic kidney disease; I50.9 Heart failure, unspecified; Z99.2 Dependence on renal dialysis; D63.1 Anemia in chronic kidney disease; I48.2 Chronic atrial fibrillation; Z91.15 Patient's noncompliance with renal dialysis

== ENCOUNTER 2017-02-14 06:23 | Inpatient (IN) | payer MEDICARE ==
[~2017-02-14] VITALS: Ht 162.6 cm; Wt 77.0 kg
[2017-02-14] VITALS (17 sets, daily range): BP systolic 88–128; BP diastolic 44–94; Ht 162.6 cm; Wt 77.0 kg
--- NOTE | ~2017-02-14 | OP ---
PATIENT NAME: MITZI SAGASTUME MEDICAL RECORD: [id number] :[birth year] LOCATION:D. D.2111 ADMISSION DATE:02/14/17 SURGEON: ABDULLAHI DYE MD DATE OF OPERATION: 02/22/2017 PREOPERATIVE DIAGNOSES: End-stage renal disease, recent sepsis associated with central venous tunneled dialysis catheter. POSTOPERATIVE DIAGNOSES: End-stage renal disease, recent sepsis associated with central venous tunneled dialysis catheter. 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 OPERATIONS PERFORMED: Implantation of a PTFE graft in a looped position in the left arm, originating from the proximal brachial artery with runoff via the proximal basilic vein. Also, removal of Trialysis catheter, balloon angioplasty dilatation of stenotic right internal jugular vein and insertion of a 19-cm long HemoSplit tunneled dialysis catheter via the right internal jugular vein under fluoroscopy. REFERRING PHYSICIAN: Arley Carvalho MD. PREOPERATIVE NOTE: Ms. Sagastume is a 77-year-old chronically ill white female who has been on dialysis with a catheter apparently for some time. She had staphylococcal sepsis and was admitted to the hospital and has been treated with antibiotics. Her tunneled central dialysis catheter in the right internal jugular vein was removed last week at which time I placed a Trialysis catheter also in the right internal jugular vein. She is returned to the operating room at this time to hopefully establish a long-term access and I am planning a graft in her right arm and remove the Trialysis and place a HemoSplit again via the other right internal jugular. Under general anesthesia in supine position, the patient was prepped and draped in sterile manner. I examined her with ultrasound after applying a [place] drain as a proximal venous tourniquet and applying topical nitroglycerin ointment. The veins in her arm and forearm were small and really not usable. Her skin is thin and fragile under subcutaneous tissues. Turgor is very poor. She is biologically much older than her chronologic age of 76. I made a longitudinal incision on the upper aspect of the arm up to the axilla and I exposed the proximal brachial vein and the axillary artery. The axillary artery was rather severely atherosclerotic and partially calcified. The vein at that level was of adequate caliber, about 12-mm diameter. The artery was dissected and controlled with Silastic loops as well as the vein. The artery was occluded it was opened for approximately 6 mm and flushed proximally and distally with heparinized saline. I chose a tapered graft; we had a 4 to 7 tapered, beaded, thin-walled Bard Impra graft. I used a short segment of the tapered end and removed the beading, beveled the end and then anastomosed it end-to-side, end of graft to side of brachial artery with running 6-0 Prolene. When completed, the suture line was treated with Evicel and then after a period of time had elapsed for the Evicel to cure, the loops and clamps were released and excellent arterial inflow was achieved into the new graft and the suture line was hemostatic. The graft and artery were then again flushed with heparinized saline and the graft clamped. I shortened it and then sewed it end-to-end to a Propaten 6-mm thin-walled graft. This was done with running 6-0 Prolene. The graft was flushed with heparinized saline and then placed in a very superficial OPERATIVE REPORT [id number] MITZI SAGASTUME subcutaneous tunnel, which curved back around posteriorly and medially to the primary incision. One counter incision was necessary distally on the arm. The graft was shortened and beveled and then the vein opened and an end-to-side, end of graft to side of vein anastomosis performed with running 6-0 Prolene. When that was completed, suture line was also treated with Evicel and the [id number], PTFE to PTFE anastomosis was sealed with BioGlue. When all was complete and the occluding clamps and loops were released, excellent flow was established in the new AV graft. Unfortunately, the thin-walled Propaten graft will be more fragile and there is likely to be more of a problem with pseudoaneurysm formation, certainly and especially if used too early. I would like for the patient to probably wait about a month to even 6 weeks for the graft to sit and a fibrous reaction be established around it. The wounds were irrigated with Ancef and gentamicin solution, infiltrated with 0.25% Marcaine without epinephrine and closed with interrupted 3-0 Vicryl and then running intracuticular 4-0 Monocryl and Dermabond glue. They were dressed with Maxorb Ag, Tegaderm and Cavilon skin prep. The patient's arm was then placed at her side and the Trialysis catheter in the upper right chest exposed that had been previously prepped and draped. The Trialysis catheter was removed over a guidewire and I passed dilators then over the guidewire and noted a severe stenosis in the internal jugular vein or brachiocephalic or both. Subsequently, I placed a 7-Georgian introducer over the guidewire and placed a longer guidewire and I did not perform an angiogram as THE PATIENT IS ALLERGIC TO CONTRAST IODINE and was not premedicated. I did use an 8 mm x 80 mm angioplasty balloon and dilated the tract and I found that there was no significant stenosis of the brachiocephalic vein or superior vena cava, but there was a very tight stenosis of the internal jugular. This was successfully dilated, after which I placed a peel-away introducer and then chose a 19-cm long HemoSplit. I made a small incision beneath the clavicle and pulled the new graft through a subcutaneous tunnel up to the cervical incision and then inserted it through the peel-away sheath. It was positioned appropriately in the right atrium or cavoatrial junction. Both lumens functioned well. They were aspirated easily and were flushed with saline and then heparin lock solution, clamped and capped. The catheter was sutured to the skin near the entry site with 2-0 Prolene. The cervical wound was irrigated with Ancef and gentamicin solution and then closed with interrupted inverted 3-0 Vicryl and Dermabond glue. It was dressed with Maxorb Ag, Tegaderm and Cavilon skin prep. A chlorhexidine disc was placed on the catheter at the entry site and a central venous dressing applied to that. The patient was then awakened and taken to the recovery room in stable condition. Blood loss during the operation was about 10 cc and it was unreplaced. All sponges, instruments and needles were accounted for and no surgical specimen was submitted for histopathology. PLAN: The patient will possibly go home tomorrow or the next day. Whether she is to be discharged to the hospital, whether she is going home or to a halfway, I don't know. I will plan to see her back in my office in about 2 weeks and as I have said, I would like to wait 4-6 weeks even before her new AV graft is used. TRANSINT:[id number] Voice Confirmation ID: [id number] DOCUMENT ID: [id number] OPERATIVE REPORT [id number] MITZI SAGASTUME JAMES MD CC: ARLEY CARVALHO MD [id number] DICTATION DATE: 02/22/17 1442 OUTSIDE SALESPERSON: 02/22/172032 ADM IN [place] [id number] [place] [id number]
--- NOTE | ~2017-02-14 | EC ---
PATIENT:MITZI SAGASTUME DATE OF SERVICE: 02/14/17 SEX: F MEDICAL RECORD: [id number] DATE OF : 44 LOCATION:D.M2 D.211 AGE OF PATIENT: 76 ADMISSION DATE: 02/14/17 REFERRING PHYSICIAN: INTERPRETING PHYSICIAN: YARA BURNS MD ECHOCARDIOGRAM REPORT ECHO CHARGES 4 ECHO COMPLETE CLINICAL DIAGNOSIS: POSSIBLE SBE ECHOCARDIOGRAPHIC MEASUREMENTS (adult normal given) AC root (d.<3.7cm) 3.0 cm LV Septum d (<1.2 cm> 1.3 cm Valve Excursion 1.8 cm LV Septum (systole) 1.7 cm Left Atria (s.<4.0cm> 5.7 cm LVPW d(<1.2cm) 1.4 cm RV (d.<2.3cm) 3.1 cm LVPW (sytole) 1.8 cm LV diastole(<5.6CM) 5.3 cm MV E-F(>70mm/sec) cm LV systole 3.3 cm LVOT Diameter 1.7 cm MV exc.(>10mm) cm Est.ejection fraction (50-75%) % Pericardial Effusion Y DOPPLER: LVIT cm/sec A cm/sec E 146 cm/sec LA cm/sec RVSP 67.3 mmHg LVOT 57.0 cm/sec AOP1/2T m/s Asc. Ao 153 cm/sec RVOT 107 cm/sec RA cm/sec PA 93.0 cm/sec AV Gradient Peak 9.3 mmHg AV Mean 5.1 mmHg AV Area 0.8 cm MV Gradient Peak 11.0 mmHg MV Mean 3.8 mmHg MV Area cm COMMENTS: Mother Superior: 1 BABS LEYOE Customs Appraiser: 2 Dr. Serna TAPE# PACS DATE OF SERVICE: 02/18/2017 PROCEDURE: Transthoracic echocardiogram. FINDINGS: 1. Left ventricle: The left ventricle was a difficult chamber to visualize. There appears to be left ventricular hypertrophy. The overall ejection fraction appears grossly normal. The patient is in atrial fibrillation, so it is difficult to comment on the diastology of the left ventricle. 2. The left atrium is severely dilated. ECHOCARDIOGRAM REPORT [id number] MITZI SAGASTUME 3. Mitral valve is shown to be thickened. The posterior mitral valve leaflet appears to be significantly thickened. There is no obvious vegetation, although there is significant mitral annular calcification and severe mitral regurgitation. 4. The aortic valve was well visualized. There is also shown to be mildly sclerotic without any evidence of stenosis with normal valvular function. 5. The tricuspid valve has moderate to moderately severe tricuspid regurgitation. The right ventricular systolic pressures are moderately elevated indicating pulmonary hypertension at 50-60 mmHg. 6. The pulmonic valve has moderate pulmonic insufficiency and the end-diastolic pressure is indicative of elevated wedge pressures. 7. The right atrium is severely dilated. 8. The right ventricle is mild to moderately dilated with normal function. CONCLUSIONS: The patient has evidence of significant mitral regurgitation and valvular heart disease with preserved to slightly low left ventricular function. There is no evidence of echogenic structure consistent with bacterial endocarditis; however, a JUANITA would be more sensitive. TRANSINT:[id number] Voice Confirmation ID: [id number] DOCUMENT ID: [id number] 02/25/2017 Edited to correct date of service, dm. YARA BURNS MD CC: [id number] DICTATION DATE: 02/20/172021 PLANT INSPECTOR: 02/20/17 2329 ADM IN [facility] [address] [place] [address]
[~2017-02-14 06:23] MED LIST changes: +COREG 3.1253.125 MG PO; -COREG12.5 MG PO; +CRESTOR10 MG PO; +SENSIPAR30 MG PO; +TYLENOL W/CODEI1 TAB PO; +ZOFRAN4 MG PO
[2017-02-14 06:43] LABS: BASOPHILS 0.3 % (0-2); EOSINOPHILS 1.7 % (0-7); HEMATOCRIT 32.9 % (36.0-48.0); HEMOGLOBIN 10.3 g/dL (12-16); IMMATURE GRANULOCYTES 0.1 % (0-5); LYMPHOCYTES 17.8 % (15-50); MCH 31.2 pg (26.0-34.0); MCHC 31.3 g/dL (31.0-37.0); MCV 99.7 fL (80.0-100.0); MONOCYTES 5.2 % (2-11); NEUTROPHILS 74.9 % (40-80); PLATELET COUNT 220 10x3/uL (130-400); RDW 16.4 % (11.5-14.5); WBC 7.8 10x3/uL (4.8-10.8)
[2017-02-14 06:50] LABS: APTT 25.3 SECONDS (22.8-39.4); INR 1.28 (0.85-1.17); PROTIME 15.9 SECONDS (11.6-15.0)
[2017-02-14 07:19] LABS: ALBUMIN 2.9 g/dL (3.4-5.0); ALKALINE PHOSPHATASE 159 U/L (46-116); ALT (SGPT) 11 U/L (10-68); BILIRUBIN - TOTAL 0.86 mg/dL (0.2-1.3); CALC OSMOLALITY 294 mosm/kg (275-300); CALCIUM 9.1 mg/dL (8.5-10.1); CARBON DIOXIDE 22.7 mmol/L (21.0-32.0); CHLORIDE - SERUM 99 mmol/L (98-107); CREATINE KINASE 32 UL (21-215); CREATININE - SERUM 9.1 mg/dL (0.6-1.3); GLUCOSE 94 mg/dL (74-106); PROTEIN - SERUM 8.1 g/dL (6.4-8.2); SODIUM 135 mmol/L (136-145); UREA NITROGEN 82 mg/dL (7-18); eGFR NON AFRICAN AMERICAN 4 mL/min (90-120)
[2017-02-14 07:22] LABS: PRO BNP 54350 pg/mL (0-125); TROPONIN-I < 0.017 ng/mL (0.000-0.060)
[2017-02-14 07:24] LABS: POTASSIUM - SERUM 6.5 mmol/L (3.5-5.1)
[2017-02-14 08:28] LABS: APPEARANCE CLOUDY (CLEAR); BACTERIA MANY /hpf (NONE SEEN); BILIRUBIN NEGATIVE (NEGATIVE); COLOR YELLOW (YELLOW); GLUCOSE NEGATIVE (NEGATIVE); KETONE NEGATIVE (NEGATIVE); LEUKOCYTE ESTERASE 2+ (NEGATIVE); NITRITE NEGATIVE (NEGATIVE); PROTEIN 2+ mg/dL (NEGATIVE); SPECIFIC GRAVITY 1.005 (1.005-1.020); TRIPLE PHOSPHATE CRYSTALS 0-5 /hpf (NONE SEEN); UROBILINOGEN NORMAL (NORMAL); WHITE CELLS - URINE 25-50 /hpf (0-5)
[2017-02-14 08:30] LABS: EPITHELIAL CELLS 0-5 /hpf (0-5); MUCUS <1+ /lpf (NONE SEEN)
--- NOTE | 2017-02-14 09:00 | NUR ---
RECIEVED PT FROM ER. VSS ON CM. ADMISSION ASSESSMENT COMPLETE PER FLOWSHEET. WOUNDS DOCUMENTED IN ASSESSMENT. DRESSING REMOVED OFF COCCYX AND WET TO DRY DRESSING APPLIED. WILL HAVE WOUND CARE NURSE SEE PT FOR WOUND CARE ORDERS. CALL LIGHT IN REACH. BED IN LOW POSITION. DIALYSIS NURSE AT BEDSIDE TO DIALYZE. WILL MONITOR FOR CHANGES .
[2017-02-14 10:01] LABS: INR 1.3 (0.85-1.17); PROTIME 16.1 SECONDS (11.6-15.0)
[2017-02-14] MEDS ORDERED: NORCO 7.5/325 T1 TA1 PO (10:17)
--- NOTE | 2017-02-14 11:00 | NUR ---
DR. WASHBURN CALLED. SBP TRENDING DOWN. ORDERS RECIEVED. STATED WE COULD DECREASE THE AMOUNT OF FLUID BEING PULLED TODAY WHILE ON DIALYSIS. STATED TO GIVE ALBUMIN FIRST AND USE LEVOPHED IF NEEDED. WILL MONITOR VS.
--- NOTE | 2017-02-14 11:07 | NUR ---
SBP TRENDING DOWN. DR. WASHBURN CALLED. ORDERS RECIEVED.
--- NOTE | 2017-02-14 12:00 | NUR ---
SON BROUGHT ALL MEDICATIONS TO ASSURE WE HAD CORRECT ONES IN SYSTEM. MED REC COMPLETED AND MEDICATIONS RETURNED TO SON.
--- NOTE | 2017-02-14 13:10 | NUR ---
Mrs. Calzada had bedside hemodialysis today via her right chest Hemosplit from 0953 until 1253. Average blood flow was 400 mls/minute. Net fluid removed was 2000 mls. Had to infuse albumin 12.5 grams IV times one dose for hypotension. Unable to remove greater than 2kgs due to hypotension. Post vital signs were: B/P: 108/74, HR: 103, Temp: 98.0, Resps: 18. Used a 1.0 k bath for two hours then a 2.0k bath for the last hour.
--- NOTE | 2017-02-14 15:00 | NUR ---
SON AT BEDSIDE. UPDATE PROVIDED.
--- NOTE | 2017-02-14 16:58 | NUR ---
DR. WASHBURN CALLED FOR INR OF 1.3 ORDERS RECIEVED FOR LOVENOX AND COUMADIN.
--- NOTE | 2017-02-14 17:54 | NUR ---
ZOFRAN GIVEN FOR NAUSEA. WILL REASSESS.
--- NOTE | 2017-02-14 18:00 | NUR ---
STERILE DRESSING PLACED OVER HEMOSPLIT. CATHETER OUT ONE INCH FROM INSERTION POINT. BIOPATCH PLACED PER PROTOCOL.
--- NOTE | 2017-02-14 23:00 | NUR ---
PT INCONTINENT OF LIQUID STOOL. CLEANED UP, GOWN AND DRAW SHEET CHANGED. POSITIONED FOR COMFORT.
[2017-02-15] VITALS (12 sets, daily range): BP systolic 89–133; BP diastolic 39–78
[2017-02-15 04:36] LABS: BASOPHILS 0.4 % (0-2); EOSINOPHILS 1.3 % (0-7); HEMATOCRIT 28.2 % (36.0-48.0); HEMOGLOBIN 8.8 g/dL (12-16); IMMATURE GRANULOCYTES 0.2 % (0-5); LYMPHOCYTES 18.3 % (15-50); MCH 31.3 pg (26.0-34.0); MCHC 31.2 g/dL (31.0-37.0); MCV 100.4 fL (80.0-100.0); MEAN PLATELET VOLUME 10.2 fL (7.4-10.4); MONOCYTES 8.1 % (2-11); NEUTROPHILS 71.7 % (40-80); PLATELET COUNT 181 10x3/uL (130-400); RBC 2.81 10x6/uL (4.00-5.40); RDW 16.3 % (11.5-14.5); WBC 5.4 10x3/uL (4.8-10.8)
[2017-02-15 04:54] LABS: INR 1.42 (0.85-1.17); PROTIME 17.3 SECONDS (11.6-15.0)
[2017-02-15 05:11] LABS: ANION GAP 13.2 mmol/L (8-16); CALCIUM 8.3 mg/dL (8.5-10.1); CARBON DIOXIDE 29.1 mmol/L (21.0-32.0); CREATININE - SERUM 5.3 mg/dL (0.6-1.3); PHOSPHOROUS 5.6 mg/dL (2.5-4.9); POTASSIUM - SERUM 4.3 mmol/L (3.5-5.1); THYROID STIMULATING HORMONE 0.63 uIU/mL (0.36-3.74)
--- NOTE | 2017-02-15 07:00 | NUR ---
REPORT RECIEVED FROM OFF GOING NURSE. ALERT AND ORIENTED X4. HAS A RIGHT SUBCLAVION HEMOSPLIT SL. DRESSING C/D/I. RIGHT HAND NS KVO. DRESSING C/D/I. NO REDDNESS/EDEMA OR C/O PAIN. HAS A FC WITH DARK CONCETRATED URINE NOTED. DRESSING TO COCCYX COMING OFF. STAGE 3 WOUND NOTED TO CUCCYX. NO DRAINAGE NOTED. WOUND CLEANED AND DRY DRESSING APPLIED. PT REFUSED TO HAVE A PILLOW UNDER BOTTOM, BUT ASKED TO BE ASSISTED TO HER SIDE. PT REPOSITIONED AND LYING ON HER RIGHT SIDE. CALL LIGHT IN REACH. NO NEEDS AT THIS TIME. WILL CONT POC
--- NOTE | 2017-02-15 08:15 | NUR ---
TRANSFER ORDERS RECIEVED FROM
--- NOTE | 2017-02-15 10:05 | NUR ---
REPORT CALLED INTO [facility] ON MED 2. ALL BELONGINGS ACCOUNTED FOR. LEFT UNIT WITH O2 TANK AT 3L VIA NC IN BED. BREATHING NORMAL AND UNLABORED. 0 S/SX OF DISTRESS/DISCOMFRT NOTED. PT IN ROOM AND [facility] AWARE.
--- NOTE | 2017-02-15 10:38 | NUR ---
RECEIVED REPORT FROM ICU NURSE JEFF. RECEIVED PT VIA BED. PT IS ALERT AND ORIENTED. ON 02 AT 3L VIA NC. IV SEEN TO RIGHT WRIST AREA WITH ANTIBIOTIC CURRENTLY HANGING AND INFUSING. SWANSON CATHETER SEEN WITH SCANT AMOUNT OF URINE OUTPUT. RIGHT CHEST HEMOSPLIT SEEN FOR DIAYSIS. LUNG SOUNDS ARE CLEAR IN ALL FOUR LOBES. CLEAN, DRY, AND INTACT DRESSING SEEN TO COCCYX AREA (JEFF, ICU NURSE CHANGED DRESSING TODAY). PT STATES WOUND TO COCCYX AREA IS FROM "[facility] WHEN I WAS IN ICU THERE". CLEAN, DRY, AND INTACT DRESSING SEEN TO RIGHT LOWER EXTREMITY. CLEAN, DRY, AND INTACT DRESSING SEEN TO PTS SECOND AND THIRD TOE ON LEFT FOOT. NO NEED AT THIS CURRENT TIME. PT IS LAYING IN BED ON RIGHT SIDE WITH EYES OPEN RESTING. BRUISING/SCABS SEEN TO BILATERAL ARMS. SCD TO LEFT LEG ONLY (RIGHT FOOT/LEG HAS DRESSING). WILL DO QUICKSTART PER POLICY AND CONTINUE WITH PLAN OF CARE.
--- NOTE | 2017-02-15 10:47 | NUR ---
INFORMED HELEN IN TELEMETRY THAT PT WILL NEED HEART MONITOR ORDERED.
--- NOTE | 2017-02-15 11:37 | NUR ---
ON MONITOR SHOWING UNCONROLLED A-FIB, HR 105.
--- NOTE | 2017-02-15 11:53 | NUR ---
RUDY, ALUM PLANT OPERATOR RECIEVED PHONE CALL FROM DR. CABRERA WITH DR. CABRERA WANTING TO KNOW ABOUT CONSULT REGARDING PT. DR. CABRERA ASKED MO[facility]GE IF PT HAD BEEN NPO. RUDY, ALUM PLANT OPERATOR CALLED ICU (PT DIDN'T ARRIVE TO UNIT UNTIL APROX 10AM AND THERE WAS NO ORDER FOR PT TO BE NPO). RUDY, ALUM PLANT OPERATOR CALLED JEFF ICU NURSE AND JEFF, RN STATES HE WAS NOT AWARE OF CONSULT FOR DR. CABRERA (CONSULT PUT IN AT 0740). DR. WASHBURN IS AWARE AND GOT ON PHONE WITH DR. CABRERA. WILL AWAIT NEW ORDERS AND CONTINUE TO MONITOR.
--- NOTE | 2017-02-15 13:01 | NUR ---
PT TURNED ON LEFT SIDE. THIS NURSE CLEANED PT UP AND ASSISTED PT INTO NEW CLEAN GOWN.
--- NOTE | 2017-02-15 17:46 | NUR ---
PT IS CURRENTLY SITTING UP IN BED REQUESTING TO BE ASSISTED TO LAY DOWN. GENEVA CROOK ASSISTED PT BACK TO BED. PT TURNED ON RIGHT SIDE. NO NEED AT THIS CURRENT TIME. WILL CONTINUE TO MONITOR.
--- NOTE | 2017-02-15 19:45 | NUR ---
SHIFT ASSESSMENT COMPLETE. STAGE III PRESSURE ULCER TO COCCYX. FLUSHED WITH NS AND APPLIED NEW BANDAGE, SIGNED AND DATED. A&O X4 AND IN GOOD SPIRITS. PERRLA, 3 MM, BRISK REACTION TO LIGHT. DENTURES ON BED SIDE TABLE. REFILLED REFRESHMENTS. S1S2 AUDIBLE, A-FIB, HR 103. LUNG SOUNDS CLEAR THROUGHOUT ALL LOBES. ABD FLAT, BS ACTIVE X4. R CHEST HEMASPLIT SALINE LOC, DRESSING CDI. R HAND PIV, NS @ 5 ML/HR. SWANSON CATH IN TACT DRAINING CONCENTRATED URINE. DRESSING ON R LEG CDI, DRESSING ON L TOES, CDI. SKIN IS LOOSE AND WRINKLED, COLOR IS PALE. REPOSITIONED FOR COMFORT. NO FURTHER REQUESTS. WILL CONT WITH POC.
[2017-02-16 00:46] VITALS: BP 114/63
--- NOTE | 2017-02-16 01:00 | NUR ---
PT RESTING ON HER R SIDE WATCHING TV. SHE DENIES ANY REQUESTS. WILL CONT TO MONITOR.
--- NOTE | 2017-02-16 03:30 | NUR ---
PT REQUESTING SALTINE CRACKERS AND ICE CHIPS. DELIVERED PROMPTLY. WILL CONT WITH POC. CALL LIGHT IN REACH.
[2017-02-16 05:12] VITALS: BP 117/56
[2017-02-16 05:33] LABS: BASOPHILS 0.4 % (0-2); EOSINOPHILS 3.3 % (0-7); HEMATOCRIT 28.4 % (36.0-48.0); HEMOGLOBIN 8.9 g/dL (12-16); LYMPHOCYTES 27.1 % (15-50); MCH 31.7 pg (26.0-34.0); MCHC 31.3 g/dL (31.0-37.0); MCV 101.1 fL (80.0-100.0); MEAN PLATELET VOLUME 9.9 fL (7.4-10.4); MONOCYTES 11.4 % (2-11); NEUTROPHILS 57.8 % (40-80); PLATELET COUNT 167 10x3/uL (130-400); RBC 2.81 10x6/uL (4.00-5.40); RDW 16.1 % (11.5-14.5); WBC 4.9 10x3/uL (4.8-10.8)
[2017-02-16 06:35] LABS: ANION GAP 16.7 mmol/L (8-16); CALCIUM 8.2 mg/dL (8.5-10.1); CARBON DIOXIDE 27.8 mmol/L (21.0-32.0); CREATININE - SERUM 6.4 mg/dL (0.6-1.3); POTASSIUM - SERUM 4.5 mmol/L (3.5-5.1); VANCOMYCIN - RANDOM 10.9 ug/mL (10.0-20.0)
--- NOTE | 2017-02-16 06:40 | NUR ---
REPOSITIONED FOR COMFORT. CALL LIGHT IN REACH. BED IN LOWEST POSITION. WILL CONT WITH POC.
--- NOTE | 2017-02-16 07:41 | NUR ---
AM ROUNDING- RECEIVED REPORT FROM GROUNDS MANAGER NURSE ABIGAIL. PT IS CURRENTLY LAYING IN BED ON BACK WITH EYES OPEN RESTING. PT DENIES ANY PAIN AT CURRENT TIME. ON 02 AT 3L VIA NC. ON MONITOR SHOWING UNCONTROLLED A-FIB, HR 114. IV SEEN TO RIGHT HAND WITH NS RUNNING AT KVO (5CC). RIGHT CHEST HEMOSPLIT SEEN FOR DIALYSIS. NO NEED AT THIS CURRENT TIME. CALL LIGHT IS IN REACH. WILL CONTINUE TO MONITOR AND CONTINUE WITH PLAN OF CARE.
[2017-02-16 08:32] VITALS: BP 118/73
--- NOTE | 2017-02-16 09:45 | NUR ---
PT TO DIALYSIS VIA BED.
--- NOTE | 2017-02-16 11:38 | NUR ---
JONO FROM DR. DASILVA OFFICE CALLED TO INFORM ME THAT DR. CABRERA WILL BE COMING BY TODAY TO SEE PT. JONO STATES PT NEEDS TO BE NPO AFTER MIDNIGHT AND TO PLACE ORDERS IN FOR THAT.
--- NOTE | 2017-02-16 12:56 | NUR ---
PT BACK FROM DIAYLSIS VIA BED.
--- NOTE | 2017-02-16 16:33 | NUR ---
PT IS STATING SHE IS NAUSEOUS. I INFORMED PT THAT SHE HAS ZOFRAN PRN NEEDED. PT STATES SHE DOES NOT WANT IT. I GAVE PT BAG JUST INCASE SHE WERE TO THROW UP.
--- NOTE | 2017-02-16 16:34 | NUR ---
CHANGED PTS HEMOSPLIT DRESSING PER POLICY. CHANGED PTS DRESSING TO RLE. SCAB SEEN TO RLE THAT APPEARS TO BE HEALED OVER. COVERED SCAB WITH 4X4, WRAPPED WITH KERLIX AND SECURED WITH TAPE. CHANGED DRESSING TO LEFT FOOT SECOND AND THIRD TOE, BLISTERS SEEN TO TOP OF TOES, COVERED SITE WITH 2X2, WRAPPED WITH KERLIX AND SECURED WITH TAPE. TOLERATED WELL.
--- NOTE | 2017-02-16 17:31 | NUR ---
EKG DONE AND PLACED IN CHART. PT IS CURRENTLY LAYING IN BED ON LEFT SIDE WITH EYES OPEN RESTING. I AKSED PT IF SHE WANTED TO EAT DINNER AND SHE STATED NO. CALL LIGHT IS IN REACH. WILL CONTINUE TO MONITOR.
--- NOTE | 2017-02-16 18:12 | NUR ---
PT IS CURRENTLY LAYING IN BED ON LEFT SIDE WITH EYES CLOSED RESTING. CALL LIGHT IS IN REACH. NO NEED AT THIS CURREN TIME. PT IS AWARE TO BE NPO AFTER MIDNIGHT. WILL PASS THIS ALONG IN REPORT AND CONINTUE TO MONITOR.
[2017-02-16 19:00] VITALS: BP 107/42
--- NOTE | 2017-02-16 19:15 | NUR ---
RECEIVED REPORT, ASSUMED CARE OF PATIENT. ALERT/AWAKE ORIENTED X 4. REQUESTED ASSISTANCE TO TURNED TO RIGHT SIDE. IV IN RT HAND INTACT/PATENT. RT CHEST HEMOSPLIT NOTED FOR DIALYSIS ACCESS. DRSG ON RT LEG. SWANSON INTACT DRAINING TO GRAVITY. HAS CL AND BEDSIDE TABLE WITH PERSONAL ITEMS IN REACH.
--- NOTE | 2017-02-16 20:45 | NUR ---
ADMIN SCHED MEDS. REQUESTED CUP OF ICE. RATES PAIN LEVEL AT 7 OF COCCYX, DESCRIBED ACHING. NO OTHER NEEDS VOICED.
[2017-02-17 01:15] VITALS: BP 113/62
--- NOTE | 2017-02-17 02:03 | NUR ---
RESTING ON LEFT SIDE WITH EYES CLOSED. RR EVEN U/L. NO S/S OF PAIN OR DISCOMFORT. BED IS LOW WITH SR UP X2. CL IN REACH.
[2017-02-17 05:15] LABS: BASOPHILS 0.4 % (0-2); EOSINOPHILS 4.5 % (0-7); HEMATOCRIT 29.7 % (36.0-48.0); HEMOGLOBIN 9.2 g/dL (12-16); IMMATURE GRANULOCYTES 0.2 % (0-5); LYMPHOCYTES 26.4 % (15-50); MCH 31.2 pg (26.0-34.0); MCV 100.7 fL (80.0-100.0); MEAN PLATELET VOLUME 9.2 fL (7.4-10.4); MONOCYTES 9.7 % (2-11); NEUTROPHILS 58.8 % (40-80); PLATELET COUNT 168 10x3/uL (130-400); RBC 2.95 10x6/uL (4.00-5.40); RDW 15.7 % (11.5-14.5); WBC 4.7 10x3/uL (4.8-10.8)
[2017-02-17 05:45] LABS: ANION GAP 13.4 mmol/L (8-16); CALCIUM 8.4 mg/dL (8.5-10.1); CARBON DIOXIDE 28.1 mmol/L (21.0-32.0); POTASSIUM - SERUM 4.5 mmol/L (3.5-5.1)
[2017-02-17 05:46] LABS: CREATININE - SERUM 4.6 mg/dL (0.6-1.3); PHOSPHOROUS 5.8 mg/dL (2.5-4.9)
[2017-02-17 06:19] LABS: VANCOMYCIN - RANDOM 19.6 ug/mL (10.0-20.0)
--- NOTE | 2017-02-17 06:27 | NUR ---
RECEIVED CALL TO GIVE PRE-OP MEDS. FLIGHT STEWARD FINISHED GIVING HIBICLENS BATH.
--- NOTE | 2017-02-17 07:30 | NUR ---
REPORT RECIEVED. PT TAKEN TO PROCEDURE. WILL CTM WHEN PT RETURNS FROM PROCEDURE.
--- NOTE | 2017-02-17 09:15 | NUR ---
PT RECIEVED TO ROOM FROM TRIALSYIS PLACEMENT INTO RIGHT JUGULAR. VSS, PT REPORTS 9/10 PAIN. PAIN MEDS GIVEN. RR EVEN AND UNLABORED, PT RESTING QUIETLY, ALERT AND ORIENTED, WILL CTM.
[2017-02-17 09:22] VITALS: BP 153/73
--- NOTE | 2017-02-17 10:42 | NUR ---
Nutrition Follow Up: Consult received for low K+ diet. Spoke with pt (son has not been present x 2 attempts) who reported that she was aware her K+ was very elevated upon admit. Provided pt with high and low K+ food list and discussed. Pt stated that she understood and planned to follow guidelines. Pt was encouraged to contact RD with any questions. Pt is eating 100% meal avg on a renal diet. +BM 02/16/17. Wt loss since admit noted. Meds and labs reviewed. Rec continue current diet. RD following.
[2017-02-17 12:00] VITALS: BP 101/56
--- NOTE | 2017-02-17 14:30 | NUR ---
PTS SWANSON CATHETER REMOVED WITH 10 ML SALINE BALLOON INTACT. PT TOLERATED WELL, WILL CTM.
--- NOTE | 2017-02-17 15:15 | NUR ---
PT RESTING QUIETLY, WOUND CARE NURSE AT BEDSIDE. ASSESSED STAGE FOUR PRESSURE ULCER. EDGES WELL APPROXIMATED, TISSUE PINK, NO SIGNS OF INFECTION NOTED. WILL CTM AND WAIT FOR DRESSING CHANGE ORDERS.
--- NOTE | 2017-02-17 15:30 | NUR ---
WOUND CARE CONSULT: PT HAS A HEALING STAGE 4 PRESSURE INJURY ON COCCYX. IT MEASURES 3CM X 3CM X 1.6CM X 1.5CM FROM 12-6 OCLOCK. THE WOUND BED IS PALE PINK. WOUND EDGES ARE ROLLED AND MACERATED. DRAINAGE APPEARED TO BE SEROUS AND MODERATE. PT STATES SHE HAS HAD THIS WOUND FOR OVER A YEAR AND IT HAS HEALED A LOT. SHE IS TREATED AT THE [facility] WOUND [facility]IN[facility] BY DR. REYES AND USES AQUACEL AG. RECOMMEND WE CONTINUE THIS TREATMENT. SHE ALSO HAS A WOUND/SCAR ON HER RIGHT OCONNOR THAT MEASURES 2CM X 3CM. IT APPEARS HEALED BUT PT PREFERS A DRESSING OVER IT. I PLACED A 2X2 OVER IT AND SECURED WITH KERLIX AND A STOCKINGETTE. PT TOLERATED WELL. WOUND CARE WILL MONITOR.
[2017-02-17 16:00] VITALS: BP 109/64
--- NOTE | 2017-02-17 17:54 | NUR ---
Patient Name: MITZI SAGASTUME Admission Status: ER Accout number: [id number] Admission Date: 02-14-2017 : 1940 Admission Diagnosis:ACUTE RESPIRATORY FAILURE WITH HYPOXIA Attending: Chandrakant Bullock Current LOS: 3 Anticipated DC Date: Planned Disposition: Home with Home Health Primary Insurance: [employer] CHOICE PPO MCR ADVANT PLANNED EXTERNAL PROVIDER: [facility] Discharge Planning Comments: * Is the patient Alert and Oriented? Yes 0 * How many steps to enter\exit or inside your home? RAMP 0 * PCP DR. HOWARD 0 * Pharmacy [facility] [address] 0 * Preadmission Environment Home with Family 0 * ADLs Partial Dependent 0 * Partial ADLs (Assistance needed) Medication Management Transfers 0 * Equipment Bedside Commode Hospital Bed Other Oxygen Walker 0 * Other Equipment TRANSFER CHAIR NOT USING , REPORTS PORTABLE AND HOME UNKNOWN MEDICAL EQUIPMENT PROVIDER 0 * List name and contact numbers for known caregivers / representatives who currently or will assist patient after discharge: CHERRY RING, DTR, 0 * Community resources currently utilized Home Health Other 0 * Please name any agencies selected above. [facility] - NURSING, PHYSICAL THERAPY OUTPATIENT DIALYSIS, [facility], [phone] [facility], FAMILY TRANSPORTS * Additional services required to return to the preadmission environment? No 0 * Can the patient safely return to the preadmission environment? Yes 0 * Has this patient been hospitalized within the prior 30 days at any hospital? No 0 CM MET WITH PT IN ROOM TO DISCUSS DISCHARGE PLANNING AND NEEDS. PT REPORTS LIVING AT HOME DEPENDENT ON ADULT DAUGHTER FOR TRANSFER ASSISTANCE, BATHING AND MEDICATION MANAGEMENT. PT'S DAUGHTER ALSO ASSIST WITH WOUND ARE ON THE DAYS THAT HOME HEALTH DOES NOT COME. PT REPORTS HAVING ALL NEEDED MEDICAL EQUIPMENT AND HOME HEALTH THERAPY AND NURSING WITH [facility]. CM DISCUSSED AVAILABILITY OF HOME HEALTH, REHAB SERVICES AND MEDICAL EQUIPMENT. PT REPORTS PLAN TO RETURN HOME WITH DAUGHTER, CONTINUE WITH [facility], REPORTS HER DAUGHTER WILL PICK HER UP FOR DISCHARGE HOME. FOR RESUMPTION OF HOME HEALTH AT DISCHARGE, CALL [facility] AT [phone], FAX DISCHARGE INFORMATION TO [facility] AT [phone]. CM TO FOLLOW AND ASSIST NEEDED. Photogrammetric Technician: Sonny Griggs
--- NOTE | 2017-02-17 18:21 | NUR ---
PT RESTING QUIETLY, RR EVEN AND UNALBORED. PT DENIES NEEDS AT THIS TIME, WILL GIVE REPORT ON PT CONDITION FOR THE DAY.
[2017-02-17 19:00] VITALS: BP 110/56
--- NOTE | 2017-02-17 19:40 | NUR ---
ALERT/AWAKE SLIGHT DROWSY. DENIES PAIN, REQUESTED CUP OF ICE. IV IN R HAND INTACT SL. TELEMETRY LEADS IN PLACE, SHOWS 85 CAFIB ON MONITOR. CL AND BEDSIDE TABLE WITH PERSONAL ITEMS IN REACH.
--- NOTE | 2017-02-17 21:59 | NUR ---
ADMIN SCHED MEDS WITH SIPS OF WATER. ASSISTED WITH REPOSITIONING TO LEFT SIDE. SHE IS STRONGER TONIGHT THAN YESTERDAY WITH HELPING TO PULL HERSELF OVER.
[2017-02-18] VITALS: BP 115/67
--- NOTE | 2017-02-18 03:00 | NUR ---
REQUESTED A SNACK OF COOKIE WAFERS. NO OTHER NEEDS VOICED.
[2017-02-18 04:00] VITALS: BP 103/63
--- NOTE | 2017-02-18 05:02 | NUR ---
REQUESTED ASSISTANCE WITH REPOSITIONING AND SOME MORE ICE.
[2017-02-18 05:33] LABS: BASOPHILS 0.8 % (0-2); EOSINOPHILS 3.3 % (0-7); HEMATOCRIT 30.7 % (36.0-48.0); HEMOGLOBIN 9.5 g/dL (12-16); LYMPHOCYTES 24.5 % (15-50); MCHC 30.9 g/dL (31.0-37.0); MCV 100.3 fL (80.0-100.0); MEAN PLATELET VOLUME 10.1 fL (7.4-10.4); MONOCYTES 7.5 % (2-11); NEUTROPHILS 63.9 % (40-80); PLATELET COUNT 179 10x3/uL (130-400); RBC 3.06 10x6/uL (4.00-5.40); RDW 15.8 % (11.5-14.5); WBC 6.1 10x3/uL (4.8-10.8)
[2017-02-18 05:58] LABS: ANION GAP 14.8 mmol/L (8-16); CARBON DIOXIDE 26.5 mmol/L (21.0-32.0); POTASSIUM - SERUM 4.3 mmol/L (3.5-5.1); VANCOMYCIN - RANDOM 17.1 ug/mL (10.0-20.0)
[2017-02-18 06:10] LABS: CREATININE - SERUM 5.8 mg/dL (0.6-1.3); PHOSPHOROUS 7.5 mg/dL (2.5-4.9)
--- NOTE | 2017-02-18 07:30 | NUR ---
REPORT RECIEVED. PT RESTING QUIETLY, RR EVEN AND UNLABORED. PT DENIES NEEDS AT THIS TIME. BED IN LOWEST POSTION, CALL COLIN IN REACH, WILL CTM.
[2017-02-18 08:00] VITALS: BP 129/63
--- NOTE | 2017-02-18 13:00 | NUR ---
PT BACK FROM DIALYSIS, RR EVEN AND UNLABORED, PT DENIES NEEDS, WILL CTM.
--- NOTE | 2017-02-18 14:20 | NUR ---
DRESSING CHANGE COMPELTED PER ORDERS BY ARLETTE CARRENO RN.
[2017-02-18 16:00] VITALS: BP 115/61
--- NOTE | 2017-02-18 18:28 | NUR ---
PT RESTING QUIETLY, RR EVEN AND UNLABORED. PT DENIES NEEDS AT THIS TIME. WILL GIVE REPORT ON PT CONDITION FOR THE DAY.
--- NOTE | 2017-02-18 20:48 | NUR ---
AROUSES EASILY TO VERBAL STIMULI. NO COMPLAINTS VOICED. RESP EVEN AND UNLABORED. CL IN REACH
[2017-02-18 20:52] VITALS: BP 125/72
--- NOTE | 2017-02-19 00:13 | NUR ---
ASSESSMENT UNCHANGED. VSS, AFEBRILE. RESP EVEN UNLABORED. NO NEEDS VOICED. WILL CONT TO MONITOR.
--- NOTE | 2017-02-19 02:12 | NUR ---
AWAKE WITH NO COMPLAINTS VOICED. RESP UNALBORED. CL IN REACH.
[2017-02-19 04:21] VITALS: BP 146/72
--- NOTE | 2017-02-19 06:21 | NUR ---
AWAKE,ALERT.NO COMPLAINTS VOICED. NO CHANGE IN ASSESSMENT. CL IN REACH
[2017-02-19 06:22] LABS: BASOPHILS 0.9 % (0-2); EOSINOPHILS 4.9 % (0-7); HEMATOCRIT 31.8 % (36.0-48.0); IMMATURE GRANULOCYTES 0.2 % (0-5); LYMPHOCYTES 23.5 % (15-50); MCH 31.5 pg (26.0-34.0); MCHC 31.4 g/dL (31.0-37.0); MCV 100.3 fL (80.0-100.0); MEAN PLATELET VOLUME 9.8 fL (7.4-10.4); MONOCYTES 10.6 % (2-11); NEUTROPHILS 59.9 % (40-80); PLATELET COUNT 203 10x3/uL (130-400); RBC 3.17 10x6/uL (4.00-5.40); RDW 15.6 % (11.5-14.5); WBC 6.3 10x3/uL (4.8-10.8)
[2017-02-19 06:39] LABS: ANION GAP 12.5 mmol/L (8-16); CALCIUM 8.5 mg/dL (8.5-10.1); CARBON DIOXIDE 28.6 mmol/L (21.0-32.0); CREATININE - SERUM 4.5 mg/dL (0.6-1.3); PHOSPHOROUS 6.4 mg/dL (2.5-4.9); POTASSIUM - SERUM 4.1 mmol/L (3.5-5.1); VANCOMYCIN - RANDOM 15.2 ug/mL (10.0-20.0)
--- NOTE | 2017-02-19 07:40 | NUR ---
AM ROUNDING- RECIEVED REPORT FROM BEAN PICKER NURSE CARLY. PT IS CURRENTLY LAYING IN BED ON BACK WITH EYES CLOSED RESTING. ON 02 AT 2L VIA NC. ON MONITOR SHOWING CONTROLLED A-FIB, HR 82. IV SEEN TO RIGHT HAND THAT IS CURRENTLY SALINE LOCKED. RIGHT TRIALYSIS SEEN FOR DIALYSIS. NO NEED AT CURRENT TIME. WILL CONTINUE TO MONITOR AND CONTINUE WITH PLAN OF CARE.
[2017-02-19 08:39] VITALS: BP 121/60
[2017-02-19 12:20] VITALS: BP 108/54
--- NOTE | 2017-02-19 12:52 | NUR ---
CALLED INTO PTS ROOM BY GENEVA KIRAN DUE TO PTS IV INFILTRATING. IV TO RIGHT HAND REMOVED WITH CATH TIP INTACT. COVERED SITE WITH 4X4 GAUZE AND SECURED WITH TAPE. KYLAH FERNANDO NP PAGED WITH IMMEDIATE CALLBACK RECIEVED. KYLAH FERNANDO NP STATES IT IS OKAY TO USE PURPLE PORT ON PTS TRIALYSIS FOR IV MEDICAITONS.
[2017-02-19 16:00] VITALS: BP 122/72
--- NOTE | 2017-02-19 16:55 | NUR ---
CHANGED PTS DRESSING TO COCCYX AREA ORDERED. WOUND SEEN MEAUSRING APPROX 4CM X 2.5CM WITH PINK WOUND BED SEEN. TUNNELING SEEN WITH SLOUGH EDGES. NO DRAINANGE SEEN. WOUND BED CLEANED WITH WOUND CLEANSER, MAXORB APPLIED TO WOUND BED COVERED BY 4X4 TO WOUND BED. COVERED AREA WITH 4X4 AND SECURED WITH MEDIPORE TAPE. TOLERATED WELL. DRESSING TO RLE CHANGED. WHAT APPEARS TO BE SCABBED OVER WOUND SEEN. CLEANED WOUND WITH WOUND CLEANSER. COVERED SITE WITH 4X4S, WRAPPED WITH KERLIX, AND SECURED WITH TAPE. ASSISTED PT UP TO SIDE OF BED TO EAT DINNER. NO FURTHER NEED AT THIS TIME. WILL CONTINUE TO MONITOR.
--- NOTE | 2017-02-19 17:55 | NUR ---
PT IS CURRENTLY LAYING IN BED ON BACK WITH EYES OPEN RESTING. THIS NURSE DID PTS DRESSING CHANGE AGAIN TO COCCYX AREA DUE TO DRESSING COMING UNDONE. COVERED SITE WITH BORDERED GAUZE DRESSING TO SECURE BETTER. PT DOES HAVE SKIN TEAR TO LEFT FOREARM AREA. COVERED SITE WITH BORDERED GAUZE. NO FURTHER NEED AT THIS TIME. WILL CONTINUE TO MONITOR.
[2017-02-19 19:00] VITALS: BP 122/65
--- NOTE | 2017-02-19 19:16 | NUR ---
PATIENT IS RESTING ON HER RIGHT SIDE WITH HER EYES CLOSED. RESPIRATIONS ARE EVEN AND UNLABORED. CALL LIGHT IS IN PATIENT'S REACH. WILL MONITOR PATIENT.
[2017-02-20] VITALS: BP 121/58
--- NOTE | 2017-02-20 03:30 | NUR ---
COMPLETE BED BATH GIVEN TO PATIENT. PATIENT TOLERATED WELL. BED LINENS CHANGED. COCCYX DRESSING CHANGED PER WOUND CARE NOTES. PATIENT DENIES ANY FURTHER NEEDS. CALL LIGHT IN PATIENT'S REACH. WILL MONITOR PATIENT.
[2017-02-20 04:00] VITALS: BP 133/51
[2017-02-20 05:10] LABS: BASOPHILS 0.8 % (0-2); EOSINOPHILS 3.3 % (0-7); HEMATOCRIT 31.3 % (36.0-48.0); HEMOGLOBIN 9.8 g/dL (12-16); IMMATURE GRANULOCYTES 0.1 % (0-5); LYMPHOCYTES 24.4 % (15-50); MCH 31.5 pg (26.0-34.0); MCHC 31.3 g/dL (31.0-37.0); MCV 100.6 fL (80.0-100.0); MONOCYTES 7.3 % (2-11); NEUTROPHILS 64.1 % (40-80); PLATELET COUNT 200 10x3/uL (130-400); RBC 3.11 10x6/uL (4.00-5.40); RDW 15.7 % (11.5-14.5); WBC 7.7 10x3/uL (4.8-10.8)
[2017-02-20 05:22] LABS: ANION GAP 14.5 mmol/L (8-16); CALCIUM 9.1 mg/dL (8.5-10.1); CARBON DIOXIDE 27.8 mmol/L (21.0-32.0); POTASSIUM - SERUM 4.3 mmol/L (3.5-5.1); VANCOMYCIN - RANDOM 20.1 ug/mL (10.0-20.0)
[2017-02-20 05:30] LABS: CREATININE - SERUM 5.7 mg/dL (0.6-1.3)
--- NOTE | 2017-02-20 07:50 | NUR ---
ROUNDING MADE WITH PATIENT APPEARING TO BE ASLEEP. RESP ARE EVEN AND NON LABORED. ON HEART MONITOR SHOWING CAF, HR 89. RIGHT TRIALYSIS WITH BLUE NURSE PORT SEEN, DRESSING IS C/D/I. ON 2L PER NC. PATIENT IS LAYING ON RIGHT SIDE. WILL CHECK DRESSINGS IN ASSESSMENT.
[2017-02-20 08:26] VITALS: BP 127/55
--- NOTE | 2017-02-20 11:32 | NUR ---
PATIENT HAS REFUSED HER RENAGEL AND MIDARONE EVEN THOUGH I HAVE EXPLAINED TO HER WHY SHE NEEDS THEM.
[2017-02-20 11:58] VITALS: BP 118/44
--- NOTE | 2017-02-20 13:00 | NUR ---
DRESSING CHANGE TO COCCYX. CLEANED WOUND WITH WOUND FORECLOSURE SPECIALIST, APPLIED MAXORB AG IN WOUND BED AND 2X2 APPLIED OVER MAXORB AB, APPLIED 4X4S OVER 2X2S AND APPLIED MEDIPORE TAPE. WOUND MEASURED [id number]. MINIMAL SEROSANGUINEOUS DRAINAGE. DRESSING TO RIGHT OCONNOR. REMOVED OLD DRESSING. APPLIED 2X2 AND SECURED WITH KERLIX AND MEDIPORE TAPE. MEASURES [id number]. NO DRAINAGE OR OPEN SKIN. WILL CONTINUE TO MONITOR
--- NOTE | 2017-02-20 14:53 | NUR ---
TOOK SCHEDULED TYLENOL #3 TO PATIENT AND WOKE HER UP FOR HER MEDICATION. SHE IS LAYING ON HER RIGHT SIDE AND REFUSES THE MEDICATION. RETURNED TO [facility] WITH RETURN SLIP.
[2017-02-20 15:56] VITALS: BP 121/50
--- NOTE | 2017-02-20 17:43 | NUR ---
PATIENT DID NOT WANT HER SUPPER TRAY. DOES NOT WANT TO DRINK ANY FLUIDS. WILL ENCOURAGE HER.
--- NOTE | 2017-02-20 19:42 | NUR ---
RESTING ON LEFT SIDE WITH EYES CLOSED. AROUSES EASILY. DENIES ANY NEEDS. ASSESSMENTS COMPLETED. HAS CL AND BEDSIDE TABLE WITH PERSONAL ITEMS IN REACH.
[2017-02-20 20:00] VITALS: BP 114/60
--- NOTE | 2017-02-20 21:07 | NUR ---
ADMIN SCHED MEDS WITH SIPS OF WATER. RATED PAIN LEVEL OF COCCYX AT 9 ON NUMBER SCALE. ASSISTED HER WITH TURNING TO RIGHT SIDE.
[2017-02-21] VITALS: BP 115/56
--- NOTE | 2017-02-21 00:31 | NUR ---
PLACED DRESSING ON COCCYX, THAT FELL OFF DURING BATH. ASSISTED CATSHOVEL DRIVER WITH REPOSITIONING UP IN BED.
[2017-02-21 04:00] VITALS: BP 120/64
--- NOTE | 2017-02-21 06:00 | NUR ---
ADMIN SCHED MEDS. JOAQUINA BLOOD FROM TRIALYSIS FOR LABS ORDERED. REQUESTED ANOTHER CUP OF ICE.
[2017-02-21 06:21] LABS: BASOPHILS 0.7 % (0-2); EOSINOPHILS 3.1 % (0-7); HEMATOCRIT 30.9 % (36.0-48.0); HEMOGLOBIN 9.5 g/dL (12-16); IMMATURE GRANULOCYTES 0.1 % (0-5); LYMPHOCYTES 20.7 % (15-50); MCH 31.3 pg (26.0-34.0); MCHC 30.7 g/dL (31.0-37.0); MCV 101.6 fL (80.0-100.0); MEAN PLATELET VOLUME 9.8 fL (7.4-10.4); MONOCYTES 9.1 % (2-11); NEUTROPHILS 66.3 % (40-80); PLATELET COUNT 217 10x3/uL (130-400); RBC 3.04 10x6/uL (4.00-5.40); RDW 15.9 % (11.5-14.5); WBC 8.1 10x3/uL (4.8-10.8)
[2017-02-21 06:41] LABS: ANION GAP 14.9 mmol/L (8-16); CALCIUM 8.6 mg/dL (8.5-10.1); CARBON DIOXIDE 26.6 mmol/L (21.0-32.0); CREATININE - SERUM 6.8 mg/dL (0.6-1.3); PHOSPHOROUS 7.5 mg/dL (2.5-4.9); POTASSIUM - SERUM 4.5 mmol/L (3.5-5.1); VANCOMYCIN - RANDOM 17.8 ug/mL (10.0-20.0)
--- NOTE | 2017-02-21 07:58 | NUR ---
RIMA ROUNDSABRINA RECIEVED REPORT FROM PUBLIC HEALTH OUTREACH WORKER NURSE YOLANDE. PT IS CURRENTLY LAYING IN BED ON BACK WITH EYES OPEN RESTING. PT DENIES ANY PAIN OR DISCOMFORT AT THIS CURRENT TIME. ON 02 AT 2L VIA NC. ON MONITOR SHOWING CONTROLLED A-FIB, HR 90. RIGHT TRIALYSIS SEEN WITH NURSE PORT THAT IS CURRENTLY SALINE LOCKED. NO NEED AT THIS CURRENT TIME. BED IS IN LOW POSITION, SIDE RAILS ARE UP X2, AND CALL LIGHT IS IN REACH. WILL CONTINUE TO MONITOR AND CONTINUE WITH PLAN OF CARE.
[2017-02-21 08:00] VITALS: BP 136/56
--- NOTE | 2017-02-21 09:57 | NUR ---
REGARDING DR. GARCIA NURSING MESSAGE, PT REFUSES POWDER RENVELA. DR. WASHBURN ON UNIT AND IS AWARE OF THIS. DR. WASHBURN STATES TO RESTART PILL FORM WHEN PT CAN TOLERATE IT.
--- NOTE | 2017-02-21 10:55 | NUR ---
PT TO DIALYSIS VIA BED.
--- NOTE | 2017-02-21 15:21 | NUR ---
SPOKE WITH DR. CABRERA ON TELEPHONE. DR. CABRERA STATES TO OBTAIN CONSENTS FOR "INSERTION OF HEMOSPLIT DIALYSIS CATHETER AND CREATION OF AVF OR AVG TO LEFT ARM". WILL OBTAIN CONSENTS AND CONTINUE TO MONITOR.
[2017-02-21 16:00] VITALS: BP 103/47
--- NOTE | 2017-02-21 18:40 | NUR ---
PT IS CURRENTLY LAYING IN BED ON BACK WITH EYES OPEN RESTING. PT DENIES ANY NEED AT THIS CURRENT TIME. WILL CONTINUE TO MONITOR.
[2017-02-21 19:00] VITALS: BP 127/51
--- NOTE | 2017-02-21 23:40 | NUR ---
NURSE ROUNDS 21:30 - PT LYING IN BED, RESTING COMFORTABLY, DENIES ANY NEEDS. PTS O2 SAT WAS 89% ON ROOM AIR AND HER LIPS WERE PURPLE, BUT PT DENIED ANY DISTRESS. O2 @ 2 LPM VIA NC PLACED ON PT, LIPS RETURNED TO PINK, AND O2 SAT INCREASED TO 98%. CONTINUE TO MONITOR PT CLOSELY. BED LOW, CALL LIGHT IN REACH, SIDE RAILS X 2, HOB 20 DEGREES.
[2017-02-22] VITALS: BP 130/52
--- NOTE | 2017-02-22 02:40 | NUR ---
PT RESTING COMFORTABLY, O2 STILL ON VIA NC, EYES CLOSED, RESPIRATIONS EVEN AND UNLABORED. CONTINUE TO MONITOR CLOSELY. BED LOW, CALL LIGHT IN REACH, SIDE RAILS X 2, HOB 30 DEGREES.
[2017-02-22 04:00] VITALS: BP 127/58
[2017-02-22 06:01] LABS: BASOPHILS 0.9 % (0-2); EOSINOPHILS 3.6 % (0-7); HEMATOCRIT 32.1 % (36.0-48.0); HEMOGLOBIN 9.8 g/dL (12-16); IMMATURE GRANULOCYTES 0.1 % (0-5); LYMPHOCYTES 22.6 % (15-50); MCH 31.1 pg (26.0-34.0); MCHC 30.5 g/dL (31.0-37.0); MCV 101.9 fL (80.0-100.0); MEAN PLATELET VOLUME 9.9 fL (7.4-10.4); MONOCYTES 11.8 % (2-11); PLATELET COUNT 239 10x3/uL (130-400); RBC 3.15 10x6/uL (4.00-5.40); RDW 15.7 % (11.5-14.5); WBC 7.8 10x3/uL (4.8-10.8)
[2017-02-22 06:21] LABS: ANION GAP 14.1 mmol/L (8-16); CALCIUM 9.4 mg/dL (8.5-10.1); CARBON DIOXIDE 27.4 mmol/L (21.0-32.0); CREATININE - SERUM 5.1 mg/dL (0.6-1.3); PHOSPHOROUS 6.7 mg/dL (2.5-4.9); POTASSIUM - SERUM 4.5 mmol/L (3.5-5.1); VANCOMYCIN - RANDOM 14.6 ug/mL (10.0-20.0)
[2017-02-22 08:00] VITALS: BP 138/54
--- NOTE | 2017-02-22 09:50 | NUR ---
TO OR PER BED
--- NOTE | 2017-02-22 09:52 | NUR ---
Nutrition Follow Up: Pt is NPO today for surgery. Pt is eating 64% meal avg on a renal ADA diet. +BM 02/22/17. Wt loss since admit noted. Meds and labs reviewed. Rec resuming diet when medically feasible. RD following.
--- NOTE | 2017-02-22 10:51 | OP ---
PATIENT NAME: MITZI SAGASTUME MEDICAL RECORD: [id number] :44 LOCATION:D.M2 D.2111 ADMISSION DATE:02/14/17 SURGEON: ABDULLAHI DYE MD DATE OF OPERATION: 02/17/2017 PREOPERATIVE DIAGNOSES: End-stage renal disease with dependence on hemodialysis and vascular access catheter associated Staphylococcus epidermidis sepsis. POSTOPERATIVE DIAGNOSES: End-stage renal disease with dependence on hemodialysis and vascular access catheter associated Staphylococcus epidermidis sepsis. OPERATION PERFORMED: Removal of tunneled dialysis catheter from the right internal jugular vein and under fluoroscopy, insertion of a Trialysis non-tunneled central venous catheter via the right internal jugular vein for temporary dialysis. ANESTHESIA: Local 1% lidocaine with epinephrine plus minimal MAC per SET ILLUSTRATOR. SURGEON: Abdullahi Dye MD. REFERRING PHYSICIAN: Leonidas Carvalho MD. PREOPERATIVE NOTE: Ms. Sagastume is a 76-year-old white female patient with end-stage renal disease, who apparently has not been compliant with dialysis, but now was hospitalized with catheter sepsis with a tunneled dialysis catheter and placement right internal jugular vein. I have been asked to remove it and replace it with the temporary Trialysis acute type catheter and to plan long-term dialysis access. The patient is presently on vancomycin and cultures have grown Staphylococcus epidermidis. Under minimal MAC and monitoring per SET ILLUSTRATOR in supine position, the patient was prepped and draped in sterile manner. Skin and subcutaneous tissues were anesthetized as needed with 1% lidocaine with epinephrine. A transverse incision at the base of the neck on the right was made and the tunneled catheter exposed, clamped and divided. Blunt dissection from the exit site was then used to free the subcutaneous segment with the Dacron felt cuff from the surrounding tissues and that segment was removed. The Dacron felt cuff was sent along with about an inch of the catheter to the laboratory for culture and sensitivity. The intravascular segment was then removed over guidewire and the tip sent also for culture as a separate specimen, neither of course sent for histology, but both only for culture. Then, under fluoroscopy over a guidewire, I inserted a Trialysis acute catheter via the right internal jugular vein and its tip breaching well into the superior vena cava near the cavoatrial junction. All 3 lumens functioned normally, they were heparin locked. The catheter was sutured to the adjacent skin with 2-0 Prolene and the incision closed with interrupted inverted 3-0 Vicryl and Dermabond glue. It was dressed with a Biopatch and sterile central venous dressing. The dressing was applied to the old catheter exit site as well and the patient then capped and head up a reverse Trendelenburg position, was awakened and taken to the recovery room where a chest x-ray was requested. My plan will be to let the patient continue IV antibiotics to resolve her bacterial sepsis. She can be returned to the operating room next week, probably OPERATIVE REPORT [id number] MITZI SAGASTUME on Tuesday for implantation of another HemoSplit tunneled dialysis catheter and implantation of a PTFE AV graft in either right or left arm. TRANSINT:[id number] Voice Confirmation ID: [id number] DOCUMENT ID: [id number] ABDULLAHI DYE MD at 1051 CC: LEONIDAS CARVALHO MD [id number] DICTATION DATE: 02/17/17902 ADVERTISING OPERATIONS MANAGER: 02/17/17 0933 ADM IN [facility] [address] [id number]
--- NOTE | 2017-02-22 11:36 | NUR ---
PATIENT NOTED TO HAVING BANDAGE ON RIGHT LOWER LEG STATED FELL OUT OF BED, ALSO BANDAGE NOTED ON SACRUM STATED HAVING SORE THERE WELL, MULTIPLE SMALL SCABBY AREAS NOTED ON ARMS, TWORLEY.
--- NOTE | 2017-02-22 14:02 | NUR ---
THE PATIENT COMPLAINED OF NAUSEA UPON WAKENING
--- NOTE | 2017-02-22 14:35 | NUR ---
RETURN FROM OR PER BED
[2017-02-22 14:37] VITALS: BP 118/59
[2017-02-22 16:00] VITALS: BP 104/56
--- NOTE | 2017-02-22 16:34 | NUR ---
WITHOUT CHANGES OR DISTRESS NOTED AT THIS TIME. DENIES NEEDS.
[2017-02-22 19:00] VITALS: BP 114/43
--- NOTE | 2017-02-22 20:06 | NUR ---
PT AWAKE, ALERT, ORIENTED, STATES MINIMAL PAIN TO RIGHT ARM, SITTING ON SIDE OF BED EATING HER DINNER. PT REMAINS NAUSEATED, BUT DENIES ANY NEEDS. CONTINUE TO MONITOR CLOSELY. BED LOW, CALL LIGHT IN REACH, SIDE RAILS X 2, HOB 10 DEGREES.
--- NOTE | 2017-02-23 00:52 | NUR ---
PT IS C/O CONSTIPATION AND NO BM X 1 WEEK. PT STATES THE SUPPOSITORY FROM LAST NIGHTS SHIFT DID NOT WORK, SO I GAVE HER PRN DULCOLAX PO. PT STATES THE PRN MIRALAX CAUSED HER TO VOMIT. PT IS CURRENTLY AWAKE, ALERT, ORIENTED, SMILING WHEN WE TALK, DENIES ANY OTHER NEEDS. CONTINUE TO MONITOR PT CLOSELY. BED LOW, CALL LIGHT IN REACH, SIDE RAILS X 2, HOB 20 DEGREES.
[2017-02-23 04:00] VITALS: BP 118/50
[2017-02-23 04:20] LABS: BASOPHILS 0.7 % (0-2); EOSINOPHILS 1.5 % (0-7); HEMATOCRIT 30.4 % (36.0-48.0); HEMOGLOBIN 9.3 g/dL (12-16); IMMATURE GRANULOCYTES 0.2 % (0-5); LYMPHOCYTES 22.2 % (15-50); MCH 31.4 pg (26.0-34.0); MCHC 30.6 g/dL (31.0-37.0); MCV 102.7 fL (80.0-100.0); MEAN PLATELET VOLUME 10.1 fL (7.4-10.4); MONOCYTES 10.5 % (2-11); NEUTROPHILS 64.9 % (40-80); PLATELET COUNT 228 10x3/uL (130-400); RBC 2.96 10x6/uL (4.00-5.40); RDW 15.4 % (11.5-14.5); WBC 8.6 10x3/uL (4.8-10.8)
[2017-02-23 04:40] LABS: CALCIUM 8.9 mg/dL (8.5-10.1)
[2017-02-23 04:45] LABS: CREATININE - SERUM 6.4 mg/dL (0.6-1.3); PHOSPHOROUS 8.7 mg/dL (2.5-4.9)
--- NOTE | 2017-02-23 06:34 | NUR ---
PT TURNED OUT RIGHT SIDE PER PT REQUEST, DENIES ANY NEEDS. CONTINUE TO MONITOR CLOSELY. BED LOW, CALL LIGHT IN REACH, SIDE RAILS X 2, HOB 30 DEGREES.
--- NOTE | 2017-02-23 07:39 | NUR ---
AM ROUNDING- RECIEVED REPORT FROM DURAL MECHANIC NURSE JAMES. PT IS CURRENTLY LAYING IN BED WITH EYES CLOSED RESTING. ON 02 AT 2L VIA NC. ON MONITOR SHOWING CONTROLLED A-FIB, HR 88. RESERVE RIGHT ARM FOR AVG. RIGHT HEMOSPLIT SEEN AROUND NECK AREA, NS RUNNING AT KVO (5CC) THROUGH BLUE PORT. PER DURAL MECHANIC NURSE JAMES, PT CAME BACK FROM SURGERY YESTERDAY WITH NS RUNNING AT KVO THROUGH BLUE PORT. NO NEED AT THIS CURRENT TIME. BED IS IN LOW POSITION, SIDE RAILS ARE UP X2, AND CALL LIGHT IS IN REACH. WILL CONTINUE TO MONITOR AND CONITNUE WITH PLAN OF CARE.
--- NOTE | 2017-02-23 08:35 | NUR ---
RESERVE RIGHT ARM SIGN PLACED ON DOOR AND ABOVE PTS BED. PT IS AWARE THAT SHE CANNOT HAVE VITAL SIGNS TAKEN OR BLOOD DRAWS FROM RIGHT ARM.
--- NOTE | 2017-02-23 10:50 | NUR ---
CHANGED PTS DRESSING TO COCCYX AREA. WOUND MEASURED 4CM X 2.5CM. WOUND EDGES ARE WHITE WITH SLOUGH TISSUE SEEN. WOUND BED IS PINK WITH SOME WHITE TISSUE SEEN. CLEANED WOUND WITH WOUND CLEANSER AND 4X4. APPLIED MAXORB AG TO WOUND BED AND COVERED WITH 4X4S. SECURED WITH ABD DRESSING. CHANGED DRESSING TO RLE. WHAT APPEARS TO BE SCAB SEEN. CLEANED SITE WITH WOUND CLEANSER AND COVERED WITH 4X4S. WRAPPED SITE WITH KERLIX AND SECURED WITH TAPE.
[2017-02-23 12:00] VITALS: BP 117/46
[2017-02-23 16:00] VITALS: BP 114/48
--- NOTE | 2017-02-23 16:07 | NUR ---
PTS HEMOSPLIT DRESSING CHANGED PER POLICY. DATED AND INITALED.
--- NOTE | 2017-02-23 17:21 | NUR ---
1630- PT TO DIALYSIS VIA BED.
--- NOTE | 2017-02-23 17:22 | NUR ---
1630- PT TO DIALYSIS VIA BED.
--- NOTE | 2017-02-23 17:24 | NUR ---
1630- PT TO DIALYSIS VIA BED.
--- NOTE | 2017-02-23 17:39 | NUR ---
Patient Name: MITZI SAGASTUME Encounter No: [id number] : 1940 Primary Insurance: [employer] CHOICE PPO MCR ADVANT Anticipated DC Date: 02-25-2017 Planned Disposition: Home with Home Health External Planned Provider: [facility] DCP follow-up note: CM RECEIVED DISCHARGE PLANNING ORDER. CM MET WITH PT TO DISCUSS DISCHARGE PLANNING AND NEEDS. PT DENIES NEED OF MEDICAL EQUIPMENT OR REHAB SERVICES. REPORTS PLAN TO RETURN HOME WITH DAUGHTER, CONTINUE WITH [facility], REPORTS HER DAUGHTER WILL PICK HER UP FOR DISCHARGE HOME. IMPORTANT MESSAGE FROM MEDICARE PROVIDED AND EXPLAINED. FOR RESUMPTION OF HOME HEALTH AT DISCHARGE, CALL [facility] AT [phone], FAX DISCHARGE INFORMATION TO [facility] AT [phone]. CM TO FOLLOW AND ASSIST NEEDED. Brimming Machine Operator: Sonny Griggs
--- NOTE | 2017-02-23 18:23 | NUR ---
PT IS CURRENTLY IN DIALYSIS. WENT TO CHECK ON PT TO SEE IF SHE WAS OK. PT SHOOK HER HEAD WHEN ASKING IF SHE WAS OK. I TOLD PT SHE NEVER ASKED FOR SUPPOSITORY TODAY LIKE WE TALKED ABOUT AT BEGINNING OF SHIFT. PT STATES SHE WILL TAKE IT WHEN SHE GETS BACK FROM DIALYSIS.
--- NOTE | 2017-02-23 19:43 | NUR ---
PT IN DIALYSIS, WILL CONTINUE CARE WHEN PT IS FINISHED AND RETURNED TO ROOM.
--- NOTE | 2017-02-23 20:57 | NUR ---
PT RETURNED FROM DIALYSIS VIA BED, AWAKE, ALERT, ORIENTED, SAT ON SIDE OF BED TO EAT SUPPER. PT CURRENTLY LYING IN BED, RESTING COMFORTABLY, DENIES ANY NEEDS. CONTINUE TO MONITOR PT CLOSELY. BED LOW, CALL LIGHT IN REACH, SIDE RAILS X 2, HOB 30 DEGREES.
[2017-02-23 21:00] VITALS: BP 131/58
--- NOTE | 2017-02-23 23:50 | NUR ---
ASSISTED PT TO TURN ON LEFT SIDE, DENIES ANY OTHER NEEDS.
[2017-02-24] VITALS: BP 138/64
[2017-02-24 04:00] VITALS: BP 112/53
[2017-02-24 05:03] LABS: BASOPHILS 0.7 % (0-2); EOSINOPHILS 3.2 % (0-7); HEMATOCRIT 30.3 % (36.0-48.0); HEMOGLOBIN 9.3 g/dL (12-16); IMMATURE GRANULOCYTES 0.1 % (0-5); LYMPHOCYTES 17.3 % (15-50); MCH 31.3 pg (26.0-34.0); MCHC 30.7 g/dL (31.0-37.0); MEAN PLATELET VOLUME 9.9 fL (7.4-10.4); MONOCYTES 17.3 % (2-11); NEUTROPHILS 61.4 % (40-80); PLATELET COUNT 227 10x3/uL (130-400); RBC 2.97 10x6/uL (4.00-5.40); RDW 15.7 % (11.5-14.5); WBC 7.6 10x3/uL (4.8-10.8)
--- NOTE | 2017-02-24 05:31 | NUR ---
PT RESTING COMFORTABLY, HAS BEEN ASKING FOR ICE A FEW TIMES THIS SHIFT, HAS ASSISTED US WITH TURNING Q 2 HOURS AND PRN. CONTINUE TO MONITOR CLOSELY. BED LOW, CALL LIGHT IN REACH, SIDE RAILS X 2, HOB 30 DEGREES.
[2017-02-24 05:35] LABS: ANION GAP 12.8 mmol/L (8-16); CALCIUM 8.8 mg/dL (8.5-10.1); CARBON DIOXIDE 28.3 mmol/L (21.0-32.0); VANCOMYCIN - RANDOM 16.1 ug/mL (10.0-20.0)
[2017-02-24 05:37] LABS: CREATININE - SERUM 4.2 mg/dL (0.6-1.3); POTASSIUM - SERUM 4.1 mmol/L (3.5-5.1)
--- NOTE | 2017-02-24 07:43 | NUR ---
AM ROUNDING- RECIEVED REPORT FROM PHOTO OFFSET PRINTER NURSE JAMES. PT IS CURRENTLY LAYING IN BED ON RIGHT SIDE WITH EYES OPEN RESTING. PT DENIES ANY NEED AT THIS CURRENT TIME. ON O2 AT 2L VIA NC. ON MONITOR SHOWING CONTROLLED A-FIB, HR 78. RESERVE RIGHT ARM FOR NEW AVG. RIGHT CHEST HEMOSPLIT SEEN FOR DIALYSIS. NO IV ACCESS AT THIS TIME. WILL CONTINUE TO MONITOR AND CONTINUE WITH PLAN OF CARE.
[2017-02-24 08:00] VITALS: BP 122/49
--- NOTE | 2017-02-24 08:45 | NUR ---
Wound to rt bruce cleaned with wound cleanser, patted dry with 4x4 gauze, wrapped with Kerlix, taped to secure. No drainage, no edema, no erythema to area. Area is firm to touch however Wound bed is pink dry. Pt tolerated treatment with no c/o pain. After wound care performed, pt stated she is on the bedpan and coccyx wound care will be performed after she is finished.
--- NOTE | 2017-02-24 09:12 | NUR ---
PT IS VERY CONSTIPATED. INFORMED PT THAT I CAN GIVE HER ANOTHER DOSE OF LACTULOSE ORDERED SINCE CONCRETE PAVER NURSE GAVE HER ONE ON CONCRETE PAVER (PT IS CURRENLTY ON BED BAKER TRYING TO HAVE BM). PT STATES SHE DOES NOT WANT A DOSE OF LACTULOSE. I INFORMED PT THAT IT IS IMPORTANT TO STAY ON A REGIMEN OF GETTING MEDICATION LIKE THAT TO HELP PT HAVE BM AND NOT JUST STOP. I INFORMED PT THAT I AM TRYING TO HELP HER SO SHE DOES NOT HAVE FURTHER PROBLEMS DUE TO SEVERE CONSTIPATION. I INFORMED PT IF SHE ABSOLUTELY DOES NOT WANT LACTULOSE FOR BM THEN I WILL RESPECT HER AND REMINDED HER AGAIN I AM HERE TO HELP HER. PT STATES "OK". PT REFUSED BINDER WITH FOOD THIS AM. DR. WASHBURN ON UNIT THIS AM AND I INFORMED DR. WASHBURN OF THIS.
--- NOTE | 2017-02-24 09:31 | NUR ---
Pressure ucler to coccyx cleaned with wound cleanser, patted dry with 4x4 gauze, gently packed with Maxorb AG and covered with border dressing cut to accommodate bowel evacuation. Wound measures 4.4 x 3.2 x 0.2 cm with small amt white to yellow exudate. Wound has even borders, 10-20% pink. Slight erythema to surrounding area. Encouraged pt to change positions frequently for pressure redistribution. Assisted pt to reposition with pts assigned nurse. Call light and personal belongings in reach. Pt tolerated treatment with minimal c/o pain, mostly due to repositioning rather than wound itself. Wound had no odor at this time.
[2017-02-24 11:57] VITALS: BP 131/83
--- NOTE | 2017-02-24 12:50 | NUR ---
PT IS REQUESTING ENEMA. THIS NURSE GAVE PT SUPPOSITORY ORDERED EARLIER ON SHIFT. PT HAS HAD SOME LOOSE RUNNY STOOL BUT HAS NOT HAD FORMED BM YET. MIRNA KIMBLE PAGED. ALSO WILL INFORM MIRNA KIMBLE THAT PT HAS NO IV ACCESS AND THERE IS IV VANCOMYCIN ORDERED X1 PER DR. GARCIA NURSING MESSAGE. WILL AWAIT CALLBACK AND CONTINUE TO MONITOR.
--- NOTE | 2017-02-24 13:13 | NUR ---
RECIEVED CALLBACK FROM MIRNA KIMBLE. LAMIN STATES TO ATTEMPT IV FOR IV VANC AND IF UNABLE TO GET ONE HAVE VANCOMYCIN GIVEN WITH DIALYSIS TOMORROW. MIRNA KIMBLE ALSO GAVE ORDERS FOR SOAP EVON ENEMA.
--- NOTE | 2017-02-24 13:33 | NUR ---
SITED PT WITH 22G IV CATHETER X2 STICKS TO LEFT FOREARM. COVERED SITE WITH TAPE AND TEGADERM. TOLERATED WELL. AWAITING ENEMA BAG WITH TUBING TO GET TO UNIT.
[2017-02-24 16:00] VITALS: BP 137/64
--- NOTE | 2017-02-24 16:21 | NUR ---
Patient Name: MITZI SAGASTUME Encounter No: [id number] : 1940 Primary Insurance: [employer] CHOICE PPO MCR ADVANT Anticipated DC Date: 02-25-2017 Planned Disposition: Home with Home Health External Planned Provider: [facility] DCP follow-up note: CM RECEIVED ORDER FOR OXYGEN, HOME HEALTH AND DISCHARGE PLANNING. CM MET WITH PT WHO IS WILLING FOR DISCHARGE AND WANTS TO MAKE SURE SHE IS NOT STILL CONSTIPATED BEFORE DISCHARGE. PT REPORTS NO BOWEL MOVEMENT SINCE LAST TUESDAY. PT DOES NOT REMEMBER THE NAME OF HER OXYGEN COMPANY. CM CALLED PT'S DAUGHTER, SLY RING, , WHO REPORTS PLAN FOR EITHER SHE OR HER BROTHER TO LANDSCAPE DESIGNER PT TOMORROW, SHE DOES NOT KNOW THE NAME OF PT'S OXYGEN COMPANY AND WILL HAVE HER BROTHER LOOK AT THE HOME CONCENTRATOR AND GET ANY NAME FROM IT AND PROVIDE TO CM; PT DOES NOT HAVE PORTABLE OXYGEN AT HOME. PT'S DAUGHTER WANTS TO MAKE SURE THAT PT HAS A BOWEL MOVEMENT PRIOR TO DISCHARGE, REPORTS PT HAVING NO BOWEL MOVEMENT SINCE LAST TUESDAY. CM NOTIFIED BEDSIDE NURSE LAZARO. CM CALLED [facility], [facility], [facility], [facility], [facility] AND [facility]. NONE HAVE PT ON ACTIVE OXYGEN SERVICES. PT HAS BEEN ON SERVICE IN PAST WITH [facility] WHO IS NOT IN NETWORK WITH [facility]. CM CALLED PT'S HOME HEALTH COMPANY, , SPKE TO DANIELA OF [facility] WHO REPORTS PT'S OXYGEN CONCENTRATOR IS ON HER FRONT PORCH AND PT IS NON COMPLIANT WITH OXYGEN AND TREATMENT AT HOME. [facility] WILL ACCEPT PT BACK ONE MORE TIME AND IF NOT COMPLIANT, MAY DISCHARGE FROM HOME HEALTH SERVICES. FOR RESUMPTION OF HOME HEALTH AT DISCHARGE, CALL [facility] AT [phone], FAX DISCHARGE INFORMATION TO [facility] AT [phone]. CM TO FOLLOW AND ASSIST NEEDED. CM WAITING CALL BACK FROM PT'S SON TO INFORM CM OF WHAT OXYGEN COMPANY TO USE TO SET UP PORTABLE OXYGEN SERVICES FOR DISCHARGE HOME TOMORROW. Big Data Analytics Lead: Sonny Griggs
--- NOTE | 2017-02-24 17:23 | NUR ---
1600- PT GIVEN DUCOLAX SUPPOSITORY ON SHIFT EARLIER. PT HAD SOME RUNNY STOOL THROUGHOUT SHIFT WHEN PLACED ON BEDPAN. I INFORMED PT THAT I WAS AWAITING CENTRAL SUPPLY TO BRING ME ENEMA SUPPLIES AND I WOULD BE IN TO DO PTS ENEMA. CAME BACK INTO PTS ROOM AND PT IS DIGGING IN HER BUTTOCK AND HAS STOOL SEEN ON HANDS. I ASKED PT WHY SHE WAS DOING THAT, PT REPLIES "BECAUSE I DIDN'T WANT TO WAIT 4 HOURS". I INFORMED PT THAT I HAD INFORMED HER I WAS WAITING ON SUPPLIES TO GIVE ENEMA. HAD PT WASH HER HANDS IN BUCKET WITH WARM WATER AND SOAP THEN PROCEEDED TO GIVE PT SOAP SPUD ENEMA DIRECTED BY MIRNA KIMBLE. BEFORE GIVING ENEMA THIS NURSE NOTICED STOOL ON PTS LINEN, SOME RUNNY AND A LITTLE BIT OF SOLID STOOL. GENEVA CROOK AND I CHANGED PTS LINEN AND GOT PT CLEANED UP. PT STATES SHE STILL HAS X2 MUCH STOOL STILL THERE THAT IS HARD. THIS NURSE CAME BACK TO PTS ROOM AND GAVE HER MORE OPTIONS FOR CONSTIPATION. I INFORMED PT THAT WE CAN GIVE HER LACTULOSE, ANOTHER SUPPOSITORY, OR PRUNE JUICE AND LEMON EKLUTNA MIXED. PT STATES SHE WANTS PRUNE JUICE AND LEMON EKLUTNA. GAVE PT PRUNE JUICE AND LEMON EKLUTNA (HEATED UP). CLEANED PTS WOUND ON COCCYX AREA, APPLIED MAXORB AG, COVERED SITE WITH 4X4 GAUZE AND COVERED SITE WITH ABD DRESSING. PT LAYING IN BED ON RIGHT SIDE NOW DRINKING PRUNE JUICE AND LEMON EKLUTNA. NO FURTHER NEED AT THIS TIME. WILL PASS THIS ALONG IN REPORT TO DELIVERY LEAD NURSE.
--- NOTE | 2017-02-24 18:19 | NUR ---
PT IS CURRENTLY LAYING IN BED ON RIGHT SIDE WITH EYES OPEN RESTING. PT STATES SHE DOES NOT FEEL WELL. PT IS DRINKING PRUNE JUICE WITH LEMON [place] TO HELP WITH CONSTIPATION. I INFORMED PT THAT I WILL PASS ALONG IN REPORT TO GIVE PT SECOND SOAP EVON ENEMA. NO FURTHER NEED AT THIS TIME. WILL CONTINUE TO MONITOR.
--- NOTE | 2017-02-24 19:00 | NUR ---
RECEIVED REPORT AND ASSUMED PT CARE FROM DAY SHIFT NURSE @ THIS TIME.
[2017-02-24 20:00] VITALS: BP 135/60
[2017-02-25 04:00] VITALS: BP 109/44
[2017-02-25 04:47] LABS: BASOPHILS 0.3 % (0-2); EOSINOPHILS 0.7 % (0-7); HEMATOCRIT 30.5 % (36.0-48.0); HEMOGLOBIN 9.4 g/dL (12-16); IMMATURE GRANULOCYTES 0.1 % (0-5); LYMPHOCYTES 15.8 % (15-50); MCH 31.4 pg (26.0-34.0); MCHC 30.8 g/dL (31.0-37.0); MEAN PLATELET VOLUME 9.8 fL (7.4-10.4); MONOCYTES 10.7 % (2-11); NEUTROPHILS 72.4 % (40-80); PLATELET COUNT 245 10x3/uL (130-400); RBC 2.99 10x6/uL (4.00-5.40); RDW 15.4 % (11.5-14.5)
[2017-02-25 04:48] LABS: WBC 10.7 10x3/uL (4.8-10.8)
[2017-02-25 05:22] LABS: CALCIUM 9.9 mg/dL (8.5-10.1); CARBON DIOXIDE 24.5 mmol/L (21.0-32.0); POTASSIUM - SERUM 4.5 mmol/L (3.5-5.1)
[2017-02-25 05:43] LABS: CREATININE - SERUM 5.5 mg/dL (0.6-1.3); PHOSPHOROUS 6.4 mg/dL (2.5-4.9)
[2017-02-25 05:44] LABS: VANCOMYCIN - RANDOM 22.2 ug/mL (10.0-20.0)
--- NOTE | 2017-02-25 07:48 | NUR ---
AM ROUNDS COMPLETED. INTRODUCED MYSELF TO PT PRIMARY RN FOR TODAYS SHIFT. PT A&O SITTING UP IN BED RESTING QUIETLY. RR NONLABORED. PT DENIES ANY CURRENT PAIN OR NEEDS AT THIS TIME. WILL PULL MORNING MEDICATIONS AND CONTINUE WITH PLAN OF CARE. CL IN REACH, BED IN LOWEST, SIDE RAILS X2. WILL CPOC.
[2017-02-25 08:00] VITALS: BP 118/50
--- NOTE | 2017-02-25 08:45 | NUR ---
SHIFT ASSESSMENT- PT A&O, ENT NORM, RR NONLABORED ON NC @2L, TELEMETRY IN PLACE CONTROLLED A.FIB @78 HEART SOUNDS IRREGULAR, BS ACTIVE X4 ABD SOFT NONDISTENDED. PT DOES STILL PRODUCE URINE, OLIGURIC R/T ESRD. RIGHT CHEST HEMESPLIT IN PLACE WITH BIOPATCH INTACT, DRSG ADHERED TO SKIN AND CAPS IN PLACE. RIGHT ARM RESERVE FOR NEWLY PLACED FISTULA-NOT MATURED, L.FA PIV SL. PT HAS A WOUND TO HER COCCYX STAGE 3 NOTED PT REFUSED TO ALLOW ME TO ASSESS AT THIS TIME AND STATED SHE WANTED TO EAT BREAKFAST FIRST. NO FURTHER NEEDS AT THIS TIME. CL IN REACH, BED IN LOWEST, SIDE RAILS X2. WILL CPOC.
--- NOTE | 2017-02-25 09:32 | NUR ---
PT LEAVING FOR DIALYSIS AT THIS TIME.
--- NOTE | 2017-02-25 09:54 | NUR ---
Patient Name: MITZI SAGASTUME Encounter No: [id number] : 1940 Primary Insurance: [employer] CHOICE PPO MCR ADVANT Anticipated DC Date: 02-25-2017 Planned Disposition: Home with Home Health External Planned Provider: [facility] DCP follow-up note: CM RECEIVED MESSAGE FROM PT'S SON, ADELAIDE, WHO REPORTS CONCENTRATOR AT PT'S HOME HAS [facility] [employer] [facility]. CM CALLED [facility], , SPOKE TO BROOK WHO LOCATED PT IN THE DATABASE, REPORTED PT IS DUE FOR CONCENTRATOR MAINTAINENCE; CM NOTIFIED OF NEED FOR PORTABILITY OF OXYGEN, GELACIO OF [facility] WILL DELIVER PORTABLE OXYGEN TO PT'S ROOM FOR DISCHARGE HOME THIS AFTERNOON AND DELIVER PORTABLE OXYGEN TO PT'S HOME AT [address] [place] [address], [address], [place] [address]. CM NOTIFIED PT WHO IS IN AGREEMENT WITH DISCHARGE PLAN; CM DISCUSSED COMPLIANCE WITH OXYGEN AND MEDICAL INSTRUCTIONS, NOTIFIED THAT HOME HEALTH MAY DROP HER A PATIENT IF PT IS NOT FOLLOWING DISCHARGE INSTRUCTIONS. PT REPORTS UNDERSTANDING AND STATES SHE WILL WEAR HER OXYGEN DIRECTED. PT VERIFIED HER DISCHARGE ADDRESS, REPORTS HER SON WILL BE PICKING HER UP TODAY FOR DISCHARGE HOME AFTER DIALYSIS. FOR RESUMPTION OF HOME HEALTH AT DISCHARGE, CALL [facility] AT [phone], FAX DISCHARGE INFORMATION TO [facility] AT [phone]. CM TO FOLLOW AND ASSIST NEEDED. Right Of Way Buyer: Sonny Griggs
--- NOTE | 2017-02-25 12:11 | NUR ---
PT DOWN IN DIALYSIS CALLED [facility] AND SHE VERIFIED PT IS DOING FINE WITH STABLE VS. WILL CTM.
[2017-02-25] MEDS ORDERED: NEPHRO-VITE RX1 TAB PO (13:25)
[2017-02-25] MEDS ORDERED: ASPIRIN81 MG PO (13:30)
--- NOTE | 2017-02-25 13:30 | NUR ---
PT BACK FROM DIALYSIS. VSS. PT IS GOING TO BE DISCHARGED TODAY AND IS WAITING ON HER PAPERS AND HER SON TO PICK HER UP. WILL CPOC.
[2017-02-25] MEDS ORDERED: MIDODRINE HCL10 MG PO (13:31)
[2017-02-25] MEDS ORDERED: MIRALAX17 GM PO (13:32)
[2017-02-25] MEDS ORDERED: TUMS500 MG PO (13:32)
--- NOTE | 2017-02-25 14:35 | NUR ---
D/C PTS L.FA PIV WITH CATHETER TIP FULLY INTACT. DISCHARGE TEACHING PROVIDED AND PAPERS SIGNED WITH PT AND HER SON AT BEDSIDE. ASSISTED PT GETTING DRESSED AND RETURNED TELEMETRY [facility]. PT DENIES ANY FURTHER QUESTIONS OR CONCERNS. NOW LEAVING.
--- NOTE | 2017-02-25 16:28 | NUR ---
Patient Name: MITZI SAGASTUME Encounter No: [id number] : 1940 Primary Insurance: [employer] CHOICE PPO MCR ADVANT Anticipated DC Date: 02-25-2017 Planned Disposition: Home with Home Health External Planned Provider: [facility] LATE ENTRY: DCP follow-up note: JOSE DELIVERED OXYGEN TO PT IN ROOM. PT IN AGREEMENT WITH DISCHARGE HOME TODAY WITH [facility]. CM DISCUSSED COMPLIANCE WITH PT AGAIN, PT STATES SHE WILL FOLLOW MEDICAL INSTRUCTIONS AND WEAR HER OXYGEN. PT'S SON TO SMALL BUSINESS REPRESENTATIVE FOR TRANSPORT HOME. CM CALLED [facility],[phone], SPOKE TO GELACIO AND NOTIFIED OF DISCHARGE FOR HOME HEALTH RESUMPTION TOMORROW. CM FAXED DISCHARGE INFORMATION TO [facility] AT [phone]. Sonny Griggs, CASE MANAGEMENT
--- NOTE | 2017-02-28 07:18 | DS ---
PATIENT:MITZI CALZADA :[birth year] MEDICAL RECORD: [id number] DISCHARGE SUMMARY ADMISSION DATE: 02/14/17 DISCHARGE DATE: 02/25/17 HISTORY OF PRESENT ILLNESS: Ms. Calzada is a 76-year-old white female with end-stage renal disease, who presented with fever and positive blood cultures. HOSPITAL COURSE: She had positive blood cultures for staph. Her urine culture and chest x-ray were negative. Her dialysis catheter was felt to be the source of her infection, consequently underwent a course of vancomycin, and Dr. Sánchez removed her dialysis catheter and placed a Trialysis catheter. Following her or course of antibiotics, she was taken back to surgery where she had placement of a right upper [place]icky graft and a new tunneled dialysis catheter, during this time being maintained on therapeutic vancomycin with therapeutic levels. At the time of discharge, her graft was stable, her new catheter was stable, and she was back to baseline. DISCHARGE DIAGNOSES: 1. Catheter-related sepsis. 2. Placement of dialysis access. 3. End-stage renal disease. 4. Chronic anemia. 5. Hypotension, chronic. PLAN: The patient will be discharged today. I will round on her next Tuesday, we will see her weekly. She will continue her renal diet and ambulation as tolerated. She will have home health. DISCHARGE MEDICATIONS: Nephro-Job 1 daily, baby aspirin 1 daily, ProAmatine 10 mg q.i.d., Tums 1 t.i.d., MiraLax p.r.n., Coreg 3.125 at bedtime, Crestor 10 mg at bedtime, Protonix 40 mg daily. She will resume her Epogen dosing as an outpatient, Neurontin 100 mg at bedtime, Cordarone 100 b.i.d. TRANSINT:[id number] Voice Confirmation ID: [id number] DOCUMENT ID: [id number] LEONIDAS MCKINNEY MD at 0718 CC: [id number] DICTATION DATE: 02/25/17726 AIR BRAKE MAN: 02/25/17 0755 DIS IN 02/25/17 [place] [address]
--- NOTE | 2017-03-01 07:50 | NUR ---
RECEIVED A VOICEMAIL TODAY AT 0738 FROM LD RODNEY ([phone]) STATEING THAT SHE WAS TRYING TO MAKE A HOME FOLLOW UP WITH THE PATIENT AND HAS NOT BEEN ABLE TO GET AHOLD OF HER. SHE QUESTIONED TO WHERE THE PATIENT WAS DISCHARGED AND IF I KNEW HOW TO GET AHOLD OF HER. RETURNED CALL AND LEFT A VOICEMAIL IN HER CONFIDENTIAL VOICE BOX STATING THAT PER OUR RECORDS, SHE WAS DISCHARGE HOME WITH OXYGEN AND [facility] HOME [facility]. EXPLAINED OUR RECORDS SHOWED THAT HER SON WAS HER TRANSPORT HOME. CONFIRMED THAT THE HOME PHONE NUMBER WE HAD FOR HER IS [phone]. ENCOURAGED HER TO CALL IF I COULD BE OF ANY FURTHER ASSISTANCE.
== END 2017-02-25 14:37 | disposition home health service (06) | DRG 252 ==
LOC: D.ER 06:23 → D.M2 07:37 → D.ICU 07:37 → D.M2 02-15 10:34
PROVIDERS: Emergency Medicine; ADMIT Internal Medicine Nephrology
PROC: 0T9B70Z Drainage of Bladder with Drainage Device, Via Natural or Artificial Opening (ICD-10-PCS; principal; 2017-02-14)
PROC: 5A1D60Z (ICD-10-PCS; 2017-02-14)
PROC: 05PY03Z Removal of Infusion Device from Upper Vein, Open Approach (ICD-10-PCS; 2017-02-14)
PROC: 02HV33Z Insertion of Infusion Device into Superior Vena Cava, Percutaneous Approach (ICD-10-PCS; 2017-02-17)
PROC: 03170KF Bypass Right Brachial Artery to Lower Arm Vein with Nonautologous Tissue Substitute, Open Approach (ICD-10-PCS; 2017-02-17)
PROC: B5181ZA Fluoroscopy of Superior Vena Cava using Low Osmolar Contrast, Guidance (ICD-10-PCS; 2017-02-17)
PROC: 037Y3ZZ Dilation of Upper Artery, Percutaneous Approach (ICD-10-PCS; 2017-02-17)
PROC: 02HV33Z Insertion of Infusion Device into Superior Vena Cava, Percutaneous Approach (ICD-10-PCS; 2017-02-22)
DX: T82.7XXA Infection and inflammatory reaction due to other cardiac and vascular devices, implants and grafts, initial encounter (principal); J96.01 Acute respiratory failure with hypoxia; N18.6 End stage renal disease; L89.154 Pressure ulcer of sacral region, stage 4; A41.9 Sepsis, unspecified organism; I13.2 Hypertensive heart and chronic kidney disease with heart failure and with stage 5 chronic kidney disease, or end stage renal disease; D68.9 Coagulation defect, unspecified; E87.5 Hyperkalemia; I50.9 Heart failure, unspecified; D63.1 Anemia in chronic kidney disease; Z99.2 Dependence on renal dialysis; Z91.15 Patient's noncompliance with renal dialysis; I48.2 Chronic atrial fibrillation; Z79.01 Long term (current) use of anticoagulants; R62.7 Adult failure to thrive; E11.22 Type 2 diabetes mellitus with diabetic chronic kidney disease; R00.0 Tachycardia, unspecified; Z86.73 Personal history of transient ischemic attack (TIA), and cerebral infarction without residual deficits; Z91.11 Patient's noncompliance with dietary regimen; K59.00 Constipation, unspecified

== ENCOUNTER 2017-04-08 07:52 | Day surgery (SDC) | payer MEDICARE, MEDICAID ==
[~2017-04-08 07:52] MED LIST changes: +ASPIRIN81 MG PO; +MIDODRINE HCL10 MG PO; +MIRALAX17 GM PO; +NEPHRO-VITE RX1 TAB PO; +NORCO 7.5/325 T1 TA1 PO; +TUMS500 MG PO
[2017-04-08 08:53] LABS: BASOPHILS 0 % (0-2); EOSINOPHILS 0 % (0-7); HEMATOCRIT 36.4 % (36.0-48.0); HEMOGLOBIN 11.4 g/dL (12-16); LYMPHOCYTES 9.6 % (15-50); MCH 32.7 pg (26.0-34.0); MCHC 31.3 g/dL (31.0-37.0); MCV 104.3 fL (80.0-100.0); MEAN PLATELET VOLUME 10.2 fL (7.4-10.4); MONOCYTES 1.3 % (2-11); NEUTROPHILS 89.1 % (40-80); RBC 3.49 10x6/uL (4.00-5.40); RDW 15.8 % (11.5-14.5); WBC 5.4 10x3/uL (4.8-10.8)
[2017-04-08 08:55] LABS: PLATELET COUNT 180 10x3/uL (130-400)
[2017-04-08 09:01] LABS: APTT 31.3 SECONDS (22.8-39.4); INR 1.33 (0.85-1.17); PROTIME 16.4 SECONDS (11.6-15.0)
--- NOTE | 2017-04-08 09:03 | NUR ---
MED LIST UNABLE TO COMPLETE MED LIST. PT UNABLE TO TELL ME WHICH MEDS SHE IS CURRENTLY ON.
[2017-04-08 09:05] VITALS: BP 140/83; BMI 30.8
[2017-04-08 09:14] LABS: ANION GAP 19.3 mmol/L (8-16); CALCIUM 7.2 mg/dL (8.5-10.1); CARBON DIOXIDE 24.7 mmol/L (21.0-32.0); CREATININE - SERUM 5.6 mg/dL (0.6-1.3)
--- NOTE | 2017-04-08 13:38 | NUR ---
COUNTS PER BUT CAN'T LIST HER NAME DUE TO SYSTEM
--- NOTE | 2017-04-08 15:05 | NUR ---
SPOKE WITH NATHAN AT [facility] ABOUT DR DYE'S REQUEST TO CALL HIM ON HOW WELL THE FISTULA IS BEING ACSESSABLE IN 2-3WKS. NATHAN GAMBINO.
--- NOTE | 2017-04-08 15:15 | NUR ---
PIV DC W/CATHETER TIP INTACT MARIELA WELL.
--- NOTE | 2017-04-08 15:30 | NUR ---
PT ASSISTED TO SIDE OF BED DRESSED AND THEN PLACED INTO HER WC VIA LIFT.
--- NOTE | 2017-04-08 15:45 | NUR ---
DC TEACHING COMPLETE TO PT AND DAUGHTER MAKI ALSO EXPLAINED TO DAUGHTER THAT IF THE FISTULA ISN'T WORKING WELL TO CALL HIS OFFICE TO SCHEDULE FOR A NEW GRAFT. ZULLY GAMBINO.
--- NOTE | 2017-04-08 15:48 | NUR ---
PT DC HOME W/DAUGHTER VIA WC WELL.
--- NOTE | 2017-04-13 14:25 | OP ---
PATIENT NAME: MITZI SAGASTUME MEDICAL RECORD: [id number] :44 LOCATION:[facility] ADMISSION DATE: SURGEON: ABDULLAHI DYE MD DATE OF OPERATION: 04/08/2017 PREOPERATIVE DIAGNOSES: End-stage renal disease and dependence on hemodialysis and other mechanical complications of surgically created arteriovenous graft at her right arm or dialysis access. Additional diagnoses or comorbidities are chronic atrial fibrillation with rapid ventricular response; diabetes type 2, controlled with renal manifestations; anemia; renal disease; and congestive heart failure. REFERRED BY: Leonidas Carvalho MD OPERATION PERFORMED: Right arm AV graft angiogram without other intervention and removal of right internal jugular vein tunneled dialysis catheter. SURGEON: Abdullahi Dye MD ANESTHESIA: General with LMA per CABLE STRETCHER AND TESTER. PREOPERATIVE NOTE: Ms. Sagastume is a 76-year-old white female who is rather frail. She has end-stage renal disease and is presently on hemodialysis. She has a right internal jugular tunneled dialysis catheter. She also has a PTFE graft in her right arm, which I placed some months ago. It has been difficult to access. The nurses in the dialysis unit have asked that she have a repeat fistulogram done today to see if there is something wrong before going ahead today and removing her tunneled dialysis catheter. Under anesthesia in supine position, the patient was prepped and draped in sterile manner. I easily accessed the arterial limb of the graft by palpation alone without the need for ultrasound guidance. I used micropuncture technique and inserted a 4-Korean catheter. Contrast injection with digital subtraction angiography demonstrated no irregularities of the lumen of the graft and no stenoses at the arterial or venous anastomosis. The axillary vein into which the graft empties is large and there is a very good flow there. The axillary artery or brachial artery from which the graft takes origin is with adequate size and caliber and there is persistent flow distally. In short, I found nothing wrong. On palpation, the graft is, however, a little difficult to feel, a little too deep in the subcutaneous tissues. I do think there is an adequate length of graft which can be accessed. After that reason, I went ahead and removed the tunneled catheter today. Blunt dissection was used to separate the Dacron felt cuff on the subcutaneous segment of tunneled catheter and the catheter was then removed by traction and hemostasis obtained with direct digital pressure along the subcutaneous tunnel. Sterile dressings were applied and the patient awakened and taken to the recovery room in stable condition. Blood loss was about 10 cc and replaced. All sponges, instruments, and needles were accounted for. No drain was used and no surgical specimen was submitted for histopathology; however, I did send the tip of the catheter for culture. OPERATIVE REPORT [id number] MITZI SAGASTUME PLAN: I will plan to allow Ms. Sagastume to go home this afternoon and resume her usual diet, medications, and dialysis schedule. I would like the [facility] dialysis nurses or Dr. Carvalho's office to let me know if the graft is being accessed and if they feel the graft is reasonably reliable secure access for her. If not, then I would recommend that it be revised with another surgical operation, at which time I would implant an Acuseal PTFE jump graft as close to the surface of the skin as possible and somewhat more lateral to the course taken by the present graft. Acuseal is inherently thicker and more rigid or stiff and much easier to palpate and should be easy to stick. The arterial and venous ends anastomosis of the present graft looked great and there is no need necessarily to redo those. TRANSINT:[id number] Voice Confirmation ID: [id number] DOCUMENT ID: [id number] ABDULLAHI DYE MD at 1425 CC: LEONIDAS CARVALHO MD [id number] DICTATION DATE: 04/08/17 1414 PIANO MAKER: 04/08/17 1522 [facility] 04/08/17 [facility] [address] [place] [address]
== END 2017-04-08 15:48 | disposition home or self-care (01) ==
LOC: D.OPS 07:52
PROVIDERS: Surgery
DX: E11.22 Type 2 diabetes mellitus with diabetic chronic kidney disease (principal); I13.2 Hypertensive heart and chronic kidney disease with heart failure and with stage 5 chronic kidney disease, or end stage renal disease; N18.6 End stage renal disease; Z99.2 Dependence on renal dialysis; I25.10 Atherosclerotic heart disease of native coronary artery without angina pectoris; Z95.5 Presence of coronary angioplasty implant and graft; Z01.812 Encounter for preprocedural laboratory examination

== ENCOUNTER 2017-04-18 00:15 | Observation (INO) | payer MEDICARE, MEDICAID ==
[~2017-04-18] VITALS: Ht 162.6 cm; Wt 76.2 kg
[2017-04-18 02:09] LABS: ALBUMIN 3.2 g/dL (3.4-5.0); ANION GAP 21.9 mmol/L (8-16); BILIRUBIN - TOTAL 0.79 mg/dL (0.2-1.3); CARBON DIOXIDE 22.1 mmol/L (21.0-32.0); CREATININE - SERUM 6.9 mg/dL (0.6-1.3); PROTEIN - SERUM 7.4 g/dL (6.4-8.2); TROPONIN-I 0.025 ng/mL (0.000-0.060)
[2017-04-18 02:13] LABS: BASOPHILS 0.6 % (0-2); EOSINOPHILS 1.3 % (0-7); HEMATOCRIT 35.6 % (36.0-48.0); HEMOGLOBIN 11.2 g/dL (12-16); IMMATURE GRANULOCYTES 0.5 % (0-5); LYMPHOCYTES 24.6 % (15-50); MCH 32.5 pg (26.0-34.0); MCHC 31.5 g/dL (31.0-37.0); MCV 103.2 fL (80.0-100.0); MEAN PLATELET VOLUME 10.6 fL (7.4-10.4); PLATELET COUNT 173 10x3/uL (130-400); RBC 3.45 10x6/uL (4.00-5.40); RDW 15.7 % (11.5-14.5); WBC 8.5 10x3/uL (4.8-10.8)
[2017-04-18 02:15] LABS: CALCIUM 6.8 mg/dL (8.5-10.1)
--- NOTE | 2017-04-18 06:01 | NUR ---
REPORT RECEIVED FROM ER.
[2017-04-18] MEDS ORDERED: HYDROCODON-ACE1 EAC7 PO (06:35)
[2017-04-18] MEDS ORDERED: MEGACE 20 MG TA20 MG PO (06:37)
[2017-04-18] MEDS ORDERED: SENSIPAR30 MG PO (06:39)
[2017-04-18] MEDS ORDERED: ZOFRAN ODT4 MG/UDTAB PO (06:40)
--- NOTE | 2017-04-18 07:15 | NUR ---
RECIEVED REPORT ON PATIENT, PATIENT IS ALERT AND ORIENTED AT THIS TIME. SITTING ON SIDE OF BED, SON AT BEDSIDE. PATIENT HAS A L HAND IV THAT IS SL AT THIS TIME. PATIENT IS ON 3L/MIN VIA NC WITH NAD NOTED AT THIS TIME. CHEST RISES AND FALLS EQUALLY. PATIENT DENIES ANY NEEDS AT THIS TIME. BED LOW AND LOCKED. CALL LIGHT IN REACH. CPOC
[2017-04-18 08:00] VITALS: BP 151/75
--- NOTE | 2017-04-18 09:15 | NUR ---
MORNING MEDICATION GIVEN. DENIES ANY NEEDS. CPOC
[2017-04-18 12:00] VITALS: BP 127/65
--- NOTE | 2017-04-18 12:00 | NUR ---
PATIENT SITTING UP IN BED EATING LUNH, DENIES ANY NEEDS CPOC
[2017-04-18 13:37] VITALS: Ht 162.6 cm; Wt 76.2 kg
--- NOTE | 2017-04-18 14:00 | NUR ---
PATIENT C/O OF PAINAT IV SITE, IV INFILTRATED. IV DC WITH CATH TIP INTACT. CPOC
--- NOTE | 2017-04-18 14:25 | NUR ---
PATIENT RESTING AT THIS TIME, NAD NOTED. WILL CONT TO MONITOR
[2017-04-18 16:00] VITALS: BP 120/61
--- NOTE | 2017-04-18 16:04 | NUR ---
RATIONALE FOR SCD'S EXPLAINED. REFUSED SCD'S
--- NOTE | 2017-04-18 16:51 | NUR ---
ANNALEE GONE FOR DIAYLSIS. CPOC
--- NOTE | 2017-04-18 18:32 | NUR ---
PATIENT STILL IN DIAYLSIS. HAVE BEEN UABLE TO GET ANOTHER IV DUE TO PATIENT BEING GONE, WILL PASS ON IN REPORT. CPOC
--- NOTE | 2017-04-18 20:30 | NUR ---
ROUNDING NOTE: PT WAS IN DIALYSIS AT THE CHANGE OF SHIFT. PT IS RIGHT ARM RESERVE D/T AVF. PT IS ALERT AND ORIENTED X3. SHE IS BEDBOUND, BUT IS ABLE TO SIT AT THE EDGE OF BED. SHE HAS A BANDAID TO SORE ON LEFT LEG. PT ALSO W/ STAGE III ON COCCYX WITH SLOUGH TISSUE. WOUND CARE CONSULT ORDERED, BUT PT WAS NOT SEEN BY WOUND CARE NURSE TODAY DUE TO BEING AT DIALYSIS; THEREFORE, CURRENTLY THE PT'S STAGE III PRESSURE ULCER IS REAL ESTATE COORDINATOR. DAY SHIFT NURSE REPORTED THAT PT PULLED HER IV OUT ACCIDENTALLY AND ANOTHER IV SITE HASN'T BEEN RESTARTED. ATTEMPTED TO RE-SITE IV, BUT PT IS REFUSING. SHE STATES THAT HER LEFT HAND STILL HURTS WHERE HER LAST IV WAS LOCATED AND SHE DOESN'T WANT ANOTHER IV SITE. AT THE VERY LEAST, SHE WOULD PREFER TO WAIT UNTIL THE MORNING TO RESTART IV. PT DOES NOT HAVE ANY IV MEDS AT THIS TIME. WILL REASSESS IN THE AM. PT IS WEARING 3L OXYGEN VIA NC. PT STATES THAT SHE FEELS SOB WITH MINIMAL EXERTION, LUNG SOUNDS ARE CLEAR. WILL CONT TO MONITOR.
[2017-04-18 22:18] VITALS: BP 127/60
[2017-04-19] VITALS (8 sets, daily range): BP systolic 96–135; BP diastolic 41–80
[2017-04-19 05:31] LABS: BASOPHILS 0.6 % (0-2); EOSINOPHILS 2.5 % (0-7); HEMOGLOBIN 10.4 g/dL (12-16); IMMATURE GRANULOCYTES 0.4 % (0-5); LYMPHOCYTES 27.2 % (15-50); MCH 32.8 pg (26.0-34.0); MCHC 31.5 g/dL (31.0-37.0); MCV 104.1 fL (80.0-100.0); MEAN PLATELET VOLUME 10.6 fL (7.4-10.4); MONOCYTES 14.4 % (2-11); NEUTROPHILS 54.9 % (40-80); PLATELET COUNT 152 10x3/uL (130-400); RBC 3.17 10x6/uL (4.00-5.40); RDW 15.7 % (11.5-14.5); WBC 6.8 10x3/uL (4.8-10.8)
[2017-04-19 05:56] LABS: ANION GAP 17.8 mmol/L (8-16); CARBON DIOXIDE 25.3 mmol/L (21.0-32.0); PHOSPHOROUS 5.8 mg/dL (2.5-4.9); POTASSIUM - SERUM 5.1 mmol/L (3.5-5.1)
[2017-04-19 06:02] LABS: CALCIUM 6.7 mg/dL (8.5-10.1)
--- NOTE | 2017-04-19 06:49 | NUR ---
PT STATES THAT HER LEFT HAND IS STILL SORE AND BOTHERING HER, SO SHE CONTINUES TO REFUSE AN IV SITE AT THIS TIME. WILL PASS ON IN REPORT TO DAY SHIFT NURSE.
--- NOTE | 2017-04-19 08:15 | NUR ---
AM ROUNDING DONE WITH NIGHT NURSE. PATIENT HAS NO IV ACCESS AND WILL NOT US TRY TO STICK HER. ON 3L PER NC. RIGHT AVF SEEN WITH DRY DRESSING, ABLE TO HEAR BRUIT BUT THRILL IS WEAK. WAS TOLD IN REPORT THAT PATIENT HAS A STAGE 3 TO COCCYX. WILL CONTULT WOUND CARE, PATIENT WILL NOT TURN FOR ME AT THIS TIME TO SEE IT. WILL CONTINUE TO MONITOR. 0820-DR TORIBIO TO CALL AND ASKED WE MAKE PATIENT NPO AT THIS TIME. BREAKFAST TRAY TAKEN. CONSULT TO IR ALSO PLACED.
[2017-04-19 08:52] LABS: INR 1.49 (0.85-1.17)
--- NOTE | 2017-04-19 09:45 | NUR ---
MANUELA TO CALL FROM [employer] AND STATES THAT WE ARE NOT GOING TO BE DOING THE PATIENT TODAY. TO GO AHEAD AND LET HER EAT.
[2017-04-19 10:19] LABS: HEPATITIS C ANTIBODY <0.1 (0.0-0.9)
--- NOTE | 2017-04-19 11:02 | NUR ---
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 The wound bed is pink and shiny. Edges are rolled and macerated. No odor is noted. Drainage appears to be fibrinous. Pt has had this wound for over a year. It has healed some in the past months. She has been going to the wound clinic for outpatient treatment. Recommend continuing same treatment she is receiving at wound clinic: calcium alginate with silver. Right bruce has wound that measures 1.5cm x 1cm and left bruce has wound that measures 3cm x 0.5cm. She states that these wounds were from scraping her legs when she fell out of her wheelchair at home. Dr. Moody is also treating these with calcium alginate with silver. Pt does not want an air overlay mattress and states her understanding of turning every 2 hours to relieve pressue from her bottom. She is able to reposition herself. Wound care will continue monitoring.
--- NOTE | 2017-04-19 12:59 | NUR ---
OP PERMITS SIGNED FOR TOMORROW. INSTRCUTED FOR NPO PAST MIDNIGHT
--- NOTE | 2017-04-19 16:29 | NUR ---
1615-PER MANAGER CUSTOMS, PATIENT IS IN SVT, UCAF, HR 115.
--- NOTE | 2017-04-19 17:03 | NUR ---
NORCO GIVEN FOR PAIN TO BOTTOM 01/20.
--- NOTE | 2017-04-19 19:45 | NUR ---
ROUNDING NOTE: PT STILL HAS NO IV ACCESS AND SHE CONTINUES TO REFUSE. SHE IS ON 3L OF OXYGEN VIA NC. SHE IS A RIGHGT ARM RESERVE FOR AVF, BUT HER RIGHT ARM IS EDEMATOUS AND RED DUE TO A BLOOD CLOT. (+)BRUIT, WEAK THRILL. PT WAS UNABLE TO USE HER AVF FOR DIALYSIS, SO THE PLAN IS FOR RIGHT UPPER EXTREMITY THROMBECTOMY TOMORROW. PT WILL BE NPO AFTER MN. SHE HAS A STAGE III ON HER COCCYX WHICH IS BEING MANAGED BY WOUND CARE NURSE.
[2017-04-20 04:00] VITALS: BP 122/53
[2017-04-20 05:40] LABS: BASOPHILS 0.3 % (0-2); EOSINOPHILS 2.5 % (0-7); HEMOGLOBIN 10.6 g/dL (12-16); IMMATURE GRANULOCYTES 0.4 % (0-5); LYMPHOCYTES 26.6 % (15-50); MCH 32.6 pg (26.0-34.0); MCHC 31.2 g/dL (31.0-37.0); MCV 104.6 fL (80.0-100.0); MEAN PLATELET VOLUME 10.3 fL (7.4-10.4); MONOCYTES 13.8 % (2-11); NEUTROPHILS 56.4 % (40-80); PLATELET COUNT 150 10x3/uL (130-400); RBC 3.25 10x6/uL (4.00-5.40); RDW 15.7 % (11.5-14.5); WBC 7.1 10x3/uL (4.8-10.8)
[2017-04-20 05:53] LABS: INR 1.46 (0.85-1.17); PROTIME 17.7 SECONDS (11.6-15.0)
[2017-04-20 06:00] LABS: ANION GAP 19.1 mmol/L (8-16); CARBON DIOXIDE 25.6 mmol/L (21.0-32.0); PHOSPHOROUS 7.2 mg/dL (2.5-4.9); POTASSIUM - SERUM 5.7 mmol/L (3.5-5.1)
[2017-04-20 06:40] LABS: CALCIUM 6.4 mg/dL (8.5-10.1)
--- NOTE | 2017-04-20 07:22 | NUR ---
CALLED SX AND SPOKE TO MELVIN ABOUT MOVING PTS SX UP SHE HAD TROUBLE BREATHING LAST NIGHT AND XRAY CONFIRMED FLUID BUILD UP. PT IS CURRENTLY RESTING QUIETLY IN BED AND REFUSED HER TELEMETRY SO I RETURNED IT TO THE [employer]. RR NONLABORED AT THIS TIME BUT SHALLOW. LUNGS CTA AND NC @5L WITH PULSE OX AT 99% SO I DECREASE OXYGEN TO 3L. PT DENIES ANY CURRENT NEEDS AND HAS BEEN NPO SINCE MIDNIGHT. WILL CPOC.
--- NOTE | 2017-04-20 07:51 | NUR ---
DURING THE NIGHT, PT BECAME ACUTELY SOB. CALLED [facility] AND SPOKE WITH JAMES RENAL FLAT POLISHER. ORDER OBTAINED FOR CXR, XANAX 0.5MG X1 AND DUONEB UPDRAFTS Q4HRS PRN. CXR REVEALED PULMONARY EDEMA/CHF DUE TO FLUID OVERLOAD SINCE PT HAS NOT BEEN ABLE TO DIALYZE D/T PROBLEMS WITH HER AVF. PT'S OXYGEN BUMPED UP TO 5L VIA NC, O2 SATS AND VS STABLE. AGAIN PT CONTINUES TO REFUSE IV ACCESS. SHE ALLOWED TELE FOR A SHORT TIME AND THEN REFUSED THAT WELL. SPOKE WITH JAMES AGAIN THIS MORNING TO DISCUSS A PLAN TO MOVE UP HER PROCEDURE TO FIX HER AVF VS. PLACING A TEMPORARY HD CATHETER. SPOKE W/ DR. TORIBIO WHO AGREED TO MOVE PT'S SURGERY UP. THIS WAS ALL RELAYED TO THE DAY SHIFT NURSE TO COORDINATE WITH THE OR TO GET HER SURGERY DONE ANN MARIE SO THAT SHE CAN BE DIALYZED AND REMOVE SOME OF THE FLUID. PT IS IN AGREEMENT WITH THIS PLAN. WILL CONT TO MONITOR.
[2017-04-20 08:00] VITALS: BP 101/66
--- NOTE | 2017-04-20 08:11 | NUR ---
HIBECLENS BATH GIVEN FOR SX AND EKG COMPLETED AND IN CHART. PRE-OP CHECKLIST COMPLETED AND CONSENTS ARE ACCURATE AND SIGNED IN CHART. 20 GUAGE PIV INSERTED X1 STICK INTO L.FA. PT RESTING AWAITING SX. WILL CPOC.
--- NOTE | 2017-04-20 08:22 | NUR ---
PRE-OP MEDS GIVEN. PT WAITING FOR SX.
--- NOTE | 2017-04-20 09:30 | NUR ---
PT LEAVING FOR SX NOW. NO CURRENT NEEDS.
--- NOTE | 2017-04-20 13:18 | NUR ---
PT BACK FROM PROCEDURE AND R.ARM FISTULA IS APPARENTLY WORKING, CALLED [facility] BIOINFORMAT[employer] SUPPORT SPECIALIST KYLAH AND DIALYSIS IS ORDERED AND PT IS WAITING ON IT. VSS AND BEING MONITERED Q15MIN PER POST OP PROTOCOL. RENAL DIET ORDERED. PTS COLOR STILL DUSKY AND SHE STATES "HELP I CANT BREATHE" RR NONLABORED WITH NX @3L IN PLACE AND PULSE OX95% XANAX HAS BEEN ORDERED FOR ANXIETY AND WILL BE GIVEN. NO FURTHER NEEDS AT THIS TIME. WILL CPOC.
--- NOTE | 2017-04-20 14:05 | NUR ---
PT CONTINUES TO STATE "I CANT BREATHE" PT SITTING UP ON EDGE OF BED WITH VERY LABORED BREATHING RR @20 PULSE OX 96% ON 4L NC. PTS COLOR STILL DUSKY WHICH WAS HER BASELINE FROM THIS MORNING PRIOR TO PROCEDURE. PT IS VERY ANXIOUS STATING "I NEED DIALYSIS NOW" PT IS NEXT IN LINE, CALLED ARLETTE FROM DIALYSIS AND PT STILL HAS ABOUT AN HOUR OR MORE TO WAIT. XANAX WAS GIVEN FOR ANXIETY AND ISMAEL SAT AT BEDSIDE AND ENCOURAGED DEEP BREATHING AND NOSE BREATHING PT IS NORMALLY A MOUTH BREATHER PT STILL VERY ANXIOUS. WILL CTM CLOSELY.
--- NOTE | 2017-04-20 15:13 | NUR ---
PT STILL HOLLERING OUT "I CANT BREATHE" PAGED RENAL REMEDIAL MASSEUR KYLAH AND NEW ORDERS OBTAINED. RESPIRATORY AT BEDSIDE AND WILL GIVE PRN TX, PULSE OX 93% @4L NC. DAUGHTER WHOM IS POA IS AT BEDSIDE CHERRY AND CONCERNED ABOUT CONDITION. SHE STATES PT IS A DNR HOWEVER WE DO NOT HAVE PROOF, SPOKE TO PT SHE IS A&O AND SHE VERIFIED SHE DOES NOT WANT CPR OR ANTHING DONE IN CASE OF A CODE. DNR ORDER PLACED AND NOW IN CHART. WILL CONTINUE TO WAIT FOR DIALYSIS.
--- NOTE | 2017-04-20 15:42 | NUR ---
DIALYSIS FINALLY READY. TRANSFERRED PT DOWN VIA BED. WILL CTM.
[2017-04-20 17:26] VITALS: BP 132/51
--- NOTE | 2017-04-20 17:27 | NUR ---
PT STILL IN DIALYSIS. NO CURRENT NEEDS.
--- NOTE | 2017-04-20 19:31 | NUR ---
RESUMED CARE OF PT, GONE TO DIALYSIS.
--- NOTE | 2017-04-20 19:53 | NUR ---
BACK FROM DIALYSIS, 2.7 LITERS REMOVED.
[2017-04-20 22:49] VITALS: BP 180/71
[2017-04-21] VITALS: BP 117/46
--- NOTE | 2017-04-21 00:14 | NUR ---
WAITER/WAITRESS SECOND CLASS AT BEDSIDE, CALL LIGHT IN REACH. WILL CONTINUE WITH PLAN OF CARE. REPOSITIONED FOR COMFORT
--- NOTE | 2017-04-21 05:45 | NUR ---
NO CHANGES FROM PREVIOUS ASSESSMENT, AM MEDS GIVEN. REPOSITIONED FOR COMFORT AND PULLED UP IN BED. CALL LIGHT IN REACH.
[2017-04-21 06:50] LABS: BASOPHILS 0.4 % (0-2); EOSINOPHILS 0.6 % (0-7); HEMATOCRIT 36.1 % (36.0-48.0); HEMOGLOBIN 11.3 g/dL (12-16); IMMATURE GRANULOCYTES 0.3 % (0-5); LYMPHOCYTES 15.5 % (15-50); MCH 32.8 pg (26.0-34.0); MCHC 31.3 g/dL (31.0-37.0); MCV 104.9 fL (80.0-100.0); MEAN PLATELET VOLUME 10.6 fL (7.4-10.4); MONOCYTES 9.5 % (2-11); NEUTROPHILS 73.7 % (40-80); PLATELET COUNT 169 10x3/uL (130-400); RBC 3.44 10x6/uL (4.00-5.40); RDW 16.2 % (11.5-14.5); WBC 7.8 10x3/uL (4.8-10.8)
[2017-04-21 07:10] LABS: CARBON DIOXIDE 22.9 mmol/L (21.0-32.0); CREATININE - SERUM 6.8 mg/dL (0.6-1.3); PHOSPHOROUS 6.7 mg/dL (2.5-4.9)
[2017-04-21 07:12] LABS: ANION GAP 24.1 mmol/L (8-16); CALCIUM 6.9 mg/dL (8.5-10.1)
[2017-04-21 08:00] VITALS: BP 140/65
--- NOTE | 2017-04-21 08:00 | NUR ---
AM ROUNDS COMPLETED AND SHIFT ASSESSMENT COMPLETED. PT VERY ANXIOUS TO BE DISCHARGED AND STATES "MY DOCTOR SAID I CAN GO AND MY DAUGHTER IS HERE AND TAKES MEDICATIONS AND CANT DRIVE ON IT SO YOU NEED TO LET ME GO NOW" CAREGIVER JESSICA THE DAUGHTER AND POA IS AT BEDSIDE AND APPEARS VERY OVERWHELMED SHE BEGAN TO TEAR UP AND STATED "I CANT CONTINUE HER HOME HD ITS TOO MUCH AND ISMAEL TRIED BUT I DONT THINK I CAN STICK HER AND IT WORK AND I DONT HAVE THE TIME TO DO IT" NOTIFIED CASE MANAGEMENT FOR CHAIR SET UP AND TRANSPORTATION AND NOTIFIED . WILL CPOC.
--- NOTE | 2017-04-21 08:56 | NUR ---
FLOOR NURSE AND DIALYSIS NURSE TO DESK. IT WAS TOLD TO ME THAT THE PATIENTS DAUGHTER HAS DECIDED (NO THAT SHE IS DISCHARGED) THAT SHE CAN NO LONGER DO HD ON HER MOM AT HOME. SHE WAS VERY UPSET AND DEMANDING HER MOM GO BACK TO OUTPATIENT THERAPY WITH A CHAIR TIME. CALL WAS PLACED TO [facility] [phone]. SHE HAS MADE A COUPLE OF CALLS WHILE I WAS ON THE PHONE. THEY WILL TALK WITH THE HOME HD NURSES AND THE PATIENTS DAUGHTER AND CALL ME BACK.
[2017-04-21 12:00] VITALS: BP 128/52
--- NOTE | 2017-04-21 14:05 | NUR ---
PT SITTING UP IN HER W/C AND WANTING TO LAY DOWN IN BED. ASSISTED PT TO BED AND SHE IS NOW RESTING AND STATES SHE IS COMFORTABLE. DISCHARGE STILL PENDING. CL IN REACH, BED IN LOWEST, SIDE RAILS X2, WILL CPOC.
[2017-04-21 16:00] VITALS: BP 100/43
[2017-04-21 21:24] VITALS: BP 116/53
[2017-04-22 01:40] VITALS: BP 112/50
--- NOTE | 2017-04-22 02:57 | NUR ---
DRESSING CHANGE ON COCCYX PRESSURE SORE. DRY PACKED WITH CURLEX SRIP AND USED MEDAPORE TAPE TO AVOID IRRITATING PATIENTS ALLERGY TO ADHESIVES. PATIENT TOLERATED. REPOSITIONED TO LEFT SIDE. BED IN LOW POSITION , CALL LIGHT IN REACH. DENIES ANY NEEDS AT THIS TIME.
[2017-04-22 04:00] VITALS: BP 119/46
--- NOTE | 2017-04-22 05:12 | NUR ---
PT LAYING ON RIGHT SIDE ASLEEP, RESPIRATIONS EVEN AND UNLABORED. BED LOW AND CALL LIGHT IN REACH. PT WOKE AND REPOSTIONED. DENIES ANY NEEDS. NO S/S OF DISTRESS. WILL CPOC
[2017-04-22 05:31] LABS: BASOPHILS 0.4 % (0-2); EOSINOPHILS 1.3 % (0-7); HEMATOCRIT 33.7 % (36.0-48.0); HEMOGLOBIN 10.7 g/dL (12-16); IMMATURE GRANULOCYTES 0.3 % (0-5); LYMPHOCYTES 19.8 % (15-50); MCH 32.8 pg (26.0-34.0); MCHC 31.8 g/dL (31.0-37.0); MCV 103.4 fL (80.0-100.0); MEAN PLATELET VOLUME 10.3 fL (7.4-10.4); MONOCYTES 13.5 % (2-11); NEUTROPHILS 64.7 % (40-80); PLATELET COUNT 161 10x3/uL (130-400); RBC 3.26 10x6/uL (4.00-5.40); RDW 16.1 % (11.5-14.5); WBC 7.9 10x3/uL (4.8-10.8)
[2017-04-22 05:43] LABS: ANION GAP 21.4 mmol/L (8-16); CARBON DIOXIDE 24.2 mmol/L (21.0-32.0); CREATININE - SERUM 7.8 mg/dL (0.6-1.3); PHOSPHOROUS 7.5 mg/dL (2.5-4.9); POTASSIUM - SERUM 5.6 mmol/L (3.5-5.1)
[2017-04-22 05:44] LABS: CALCIUM 6.9 mg/dL (8.5-10.1)
[2017-04-22 08:00] VITALS: BP 105/51
--- NOTE | 2017-04-22 10:45 | NUR ---
UP SOB WITH CALL LIGHT IN REACH. WILL MONITOR NEEDS.
[2017-04-22 12:00] VITALS: BP 101/45
--- NOTE | 2017-04-22 12:10 | NUR ---
LEAVING FOR DIALYSIS BY W/C. WILL CONT. PLAN OF CARE.
--- NOTE | 2017-04-22 12:55 | NUR ---
Nutrition follow-up: Diet: Renal PO intake ~60% average of meals Labs reviewed Wt: 168# Pt in HD at this time RDN following.
--- NOTE | 2017-04-22 16:18 | NUR ---
Patient Name: MITZI SAGASTUME Encounter No: [id number] : 1940 Primary Insurance: [employer]NA CHOICE PPO MCR ADVANT Anticipated DC Date: 04-22-2017 Planned Disposition: Home with Home Health External Planned Provider: [facility] DCP follow-up note: * Is the patient Alert and Oriented? Yes 0 * How many steps to enter\exit or inside your home? RAMP 0 * PCP DR. HOWARD 0 * Pharmacy [facility] [address] 0 * Preadmission Environment Home with Family 0 * ADLs Partial Dependent 0 * Partial ADLs (Assistance needed) Ambulation Bathing Dressing Medication Management Transfers 0 * Equipment Bedside Com[facility] Hospital Bed Other Oxygen Walker 0 * Other Equipment TRANSFER CHAIR UNKNOWN MEDICAL EQUIPMENT PROVIDER 0 * List name and contact numbers for known caregivers / representatives who currently or will assist patient after discharge: CHERRY RING, DTR, 0 * Community resources currently utilized Home Health Other 0 * Please name any agencies selected above. [facility], NURSING AND PHYSICAL THERAPY OUTPATIENT DIALYSIS, [facility], MWF, 1115, 1045 ON TUESDAY FOR FIRST APPT / FAMILY TRANSPORT 0 * Additional services required to return to the preadmission environment? No 0 * Can the patient safely return to the preadmission environment? Yes 0 * Has this patient been hospitalized within the prior 30 days at any hospital? No 0 CM MET WITH PT IN ROOM TO DISCUSS DISCHARGE PLANNING AND NEEDS. PT REPORTS LIVING AT HOME DEPENDENTLY WITH HER DAUGHTER. PT HAS TO HAVE ASSISTANCE WITH TRANSFERS, AMBULATION, BATH, DRESSING AND MEDS. PT HAS ALL NEEDED MEDICAL EQUIPMENT AT HOME FROM UNKNOWN MEDICAL EQUIPMENT PROVIDER. PT HAS HOME HEALTH WITH [facility]. CM DISCUSSED AVAILABILITY OF HOME HEALTH, REHAB SERVICES AND MEDICAL EQUIPMENT. PT DENIES DISCHARGE NEEDS, REPORTS HOME HEALTH WILL RESUME AND HER DAUGHTER WILL GET HER TO DIALYSIS; PT HAS NEW DIALYSIS SCHEDULE AT [facility], MWF, 1145, FIRST APPT TUESDAY AT 1045AM. PT REPORTS UNDERSTANDING, STATES HER DAUGHTER KNOWS SHE IS GOING HOME TODAY AND WILL PICK HER UP THIS EVENING. IMPORTANT MESSAGE FROM MEDICARE PROVIDED AND EXPLAINED. CM PROVIDED PT WITH WELCOME LETTER WITH REPORTING INSTRUCTIONS TO [facility] FOR OUTPATIENT DIALYSIS. COPY TO CHART. CM CALLED [facility], , SPOKE TO PIEDAD WHO REPORTS THEY WILL RESUME THIS WEEKEND. CM FAXED INFORMATION TO [facility] AT [phone]. Sonny Griggs, CASE MANAGEMENT
--- NOTE | 2017-04-22 16:54 | NUR ---
BACK FROM DIALYSIS. DC PLANS GIVEN. UNDERSTANDING VOICED. ESCORTED TO CAR BY W/C.
--- NOTE | 2017-04-26 09:40 | CN ---
PATIENT NAME:MITZI SAGASTUME MEDICAL RECORD: [id number] : 44 LOCATION:D.M2 D.2133 ADMIT DATE: 04/18/17 ACCOUNT: [id number] CONSULTING PHYSICIAN: LEONIDAS TORIBIO MD REFERRING PHYSICIAN: SAMUEL BURNETT MD DATE OF CONSULTATION: 04/19/2017 This is a consultation note addendum. CHIEF COMPLAINT: Clotted graft. HISTORY OF PRESENT ILLNESS: The patient states that she was undergoing dialysis yesterday. Her graft then clotted. She is currently eating lunch. Therefore, we will have to wait until tomorrow to declot her graft. The risks, possible complications, and alternatives of the procedure were explained to the patient. She elects to proceed. Symptoms came on suddenly. She is really asymptomatic. She is not having any pain. This is a patient of Dr. Sánchez. He is currently out of town. I am covering for him. We offered the patient the opportunity to have her procedure performed in the interventional radiology department today. She states that she wants to be under general anesthesia and I spoke with Dr. Sorto regarding this. Since she insists on general anesthesia, this will need to be done in the operating room. She has a looped right upper extremity AV graft fistula. I am going to plan for a mechanical thrombectomy, possible open procedure, possible stenting, possible balloon angioplasty, possible placement of a tunneled catheter. The risks, possible complications, and alternatives of the procedure were explained to patient. This included the risk of bleeding requiring an emergency reoperation, infection, the possible need for additional revisionary procedure. This is a consultation note addendum. For the typed portion of the consult note, please see the chart. This will include past medical and surgical history, allergies, family history, and current medications. REVIEW OF SYSTEMS: Currently, no nausea, no vomiting, no fever, no chills, no headache, no chest pain, no shortness of breath. Review of systems is negative other than as is described above. PHYSICAL EXAMINATION: GENERAL: The patient does not appear acutely ill. She does appear chronically ill. VITAL SIGNS: Reviewed. The entire physical examination was performed in the presence of a female nurse. EARS: External ears appear normal. EYES: Extraocular movements are intact. NECK: Trachea is midline. CHEST: No intercostal retractions. PULMONARY: Nonlabored, no stridor. ABDOMEN: No peritonitis with movement. BACK: Mild thoracic kyphosis is noted. LYMPHATICS: No lymphangitic streaking of the exposed extremities. PSYCHIATRIC: Normal affect. NEUROLOGIC: Answers questions appropriately. CONSULT REPORT [id number] MITZI SAGASTUME IMPRESSION: Clotted right arm AV graft fistula in a patient with end-stage renal disease and without other access for hemodialysis. PLAN: As described above. TRANSINT:[id number] Voice Confirmation ID: [id number] DOCUMENT ID: [id number] LEONIDAS TORIBIO MD at 0940 CC: JEFF WASHBURN MD and SAMUEL BURNETT MD [id number] DICTATION DATE: 04/19/17 1234 CAPTAIN/CHECK AIRMAN: 04/19/17 1323 DIS IN 04/22/17 [id number] [place] [address]
--- NOTE | 2017-04-26 09:40 | OP ---
PATIENT NAME: MITZI SAGASTUME MEDICAL RECORD: [id number] :44 LOCATION:D.M2 D.2133 ADMISSION DATE:04/18/17 SURGEON: LEONIDAS TORIBIO MD DATE OF OPERATION: 04/20/2017 PREOPERATIVE DIAGNOSIS: Clotted right arm looped arteriovenous graft fistula. 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 PROCEDURES: 1. Antegrade sheath placement, 7-Comoran, right arm arteriovenous graft fistula. 2. Retrograde sheath placement, 6-Comoran, right arm looped arteriovenous graft fistula. 3. Nonselective fistulogram. 4. Selective brachial arteriogram. 5. Balloon angioplasty of right subclavian vein, 12 mm. 6. All these performed under fluoroscopic guidance with immediate surgeon interpretation. SURGEON: Leonidas Toribio MD SCRIPT MANAGER: None. BLOOD LOSS: 25 cc. ANESTHESIA: General. COMPLICATIONS: None. The risks, possible complications and alternatives to the procedure were explained to the patient. She elects to proceed. This is a patient of Dr. Dye. He is currently out of town. I am covering for him. Upon examination today, it appeared that the patient had a bruit. I was unable to determine which way the blood was flowing and which was the arterial end of the graft and which was the venous end of the graft. Utilizing a micropuncture technique, I percutaneously accessed the distal portion of the graft. A microwire was placed. A Micro dilator introducer was advanced. The dilator and wire were removed. Through the introducer, 0.035 J wire was advanced. Over the 0.035 J wire, a short 6-Comoran sheath was advanced, then sewn in place. Intravenous heparin was given. Through the sheath, a nonselective fistulogram was performed. This revealed that the sheath had been placed in a retrograde fashion. I have performed several fistulograms with outflow into the right side of the heart through the sequential fistulograms. There appeared to be some hang up of contrast within the right subclavian vein and it entered with some very large collaterals. It appeared that there was a stenotic area here and this might be flow limiting. Even with obliquing the C-arm, it was difficult to tell how tight this area was. To my estimation, it was about a 50% stenosis and appeared to have some flow-limiting component to it. OPERATIVE REPORT [id number] MITZI SAGASTUME At the another end of the graft, utilizing micropuncture technique, a 7-Comoran dilator sheath was advanced. The dilator and wire were removed. The sheath was sewn in place. Through the retrograde sheath, I advanced an 0.035 Glidewire, then a 4-Comoran angled diagnostic catheter. Angled diagnostic catheter was advanced into the brachial artery. Utilizing a hand injection technique, a selective brachial arteriogram was performed. This revealed no arterial anastomotic stricture or flow-limiting stenosis within the visualized portions of the brachial artery. No radiologist was present for this procedure. Static and cine fluoroscopic images were obtained and are kept in the PACS system. The surgeon interpretation of radiographic images is dictated within the body of this operative note. Attention was then turned to the possible flow-limiting stenosis within the subclavian vein. An 0.035 Glidewire was advanced through the 7-Comoran sheath. It was advanced into the right side of the heart. Over the Glidewire, a 12 x 4 cm angioplasty balloon was advanced and I balloon angioplastied the subclavian vein under digital subtraction and then roadmap. I then withdrew the balloon. Another fistulogram was performed. This revealed really no change in the appearance of the subclavian vein. I readvanced the Glidewire as well as the 12-mm angioplasty balloon and re-angioplastied the subclavian vein. I then removed the wire and angioplasty balloon. The fistulogram with flow images into the central venous system revealed perhaps some improvement in flow past this area of apparent stenosis. Endovascular hardware was removed. The sheath sites were closed with [id number] 4-0 Vicryl sutures. Sterile dressings were applied. The patient was then extubated and conveyed to post-anesthesia care unit where she was in stable condition. I will see her on a p.r.n. basis. TRANSINT:[id number] Voice Confirmation ID: [id number] DOCUMENT ID: [id number] LEONIDAS TORIBIO MD at 0940 CC: ABDULLAHI DYE MD, JEFF WASHBURN MD and SAMUEL BURNETT MD [id number] DICTATION DATE: 04/20/17 1309 BOOK MENDER: 04/20/17 1444 DIS IN 04/22/17 [facility] [address] [facility] [place] [id number]
== END 2017-04-22 16:54 | disposition home or self-care (01) ==
LOC: D.ER 00:15 → D.M2 05:51 → OBSVTIME 05:51 → D.ER 05:51 → D.M2 05:51
PROVIDERS: Emergency Medicine; Internal Medicine Nephrology; Specialist; ADMIT Internal Medicine Nephrology
DX: T82.858A Stenosis of other vascular prosthetic devices, implants and grafts, initial encounter (principal); N18.6 End stage renal disease; I13.2 Hypertensive heart and chronic kidney disease with heart failure and with stage 5 chronic kidney disease, or end stage renal disease; Y83.8 Other surgical procedures as the cause of abnormal reaction of the patient, or of later complication, without mention of misadventure at the time of the procedure; E11.22 Type 2 diabetes mellitus with diabetic chronic kidney disease; Z99.2 Dependence on renal dialysis; Z91.15 Patient's noncompliance with renal dialysis; E87.5 Hyperkalemia; D63.1 Anemia in chronic kidney disease; I48.91 Unspecified atrial fibrillation; Z86.73 Personal history of transient ischemic attack (TIA), and cerebral infarction without residual deficits; I50.21 Acute systolic (congestive) heart failure

== ENCOUNTER 2017-04-24 23:44 | Inpatient (IN) | payer MEDICARE, MEDICAID ==
[~2017-04-24] VITALS: Ht 162.6 cm; Wt 82.7 kg
[~2017-04-24 23:44] MED LIST changes: +MEGACE 20 MG TA20 MG PO; +ZOFRAN ODT4 MG/UDTAB PO
[2017-04-25] VITALS (9 sets, daily range): BP systolic 88–131; BP diastolic 42–73; Ht 162.6 cm; Wt 82.7 kg
[2017-04-25 00:47] LABS: ALBUMIN 2.9 g/dL (3.4-5.0); BASOPHILS 0.3 % (0-2); BILIRUBIN - TOTAL 0.97 mg/dL (0.2-1.3); CARBON DIOXIDE 23.1 mmol/L (21.0-32.0); CREATININE - SERUM 7.8 mg/dL (0.6-1.3); EOSINOPHILS 1.7 % (0-7); HEMATOCRIT 33.9 % (36.0-48.0); HEMOGLOBIN 10.7 g/dL (12-16); IMMATURE GRANULOCYTES 0.2 % (0-5); LYMPHOCYTES 21.3 % (15-50); MCH 32.9 pg (26.0-34.0); MCHC 31.6 g/dL (31.0-37.0); MCV 104.3 fL (80.0-100.0); MEAN PLATELET VOLUME 10.9 fL (7.4-10.4); MONOCYTES 14.3 % (2-11); NEUTROPHILS 62.2 % (40-80); PLATELET COUNT 147 10x3/uL (130-400); PROTEIN - SERUM 6.5 g/dL (6.4-8.2); RBC 3.25 10x6/uL (4.00-5.40); RDW 16.2 % (11.5-14.5); TROPONIN-I 0.048 ng/mL (0.000-0.060); WBC 6.5 10x3/uL (4.8-10.8)
[2017-04-25 00:51] LABS: ANION GAP 22.5 mmol/L (8-16); CALCIUM 5.4 mg/dL (8.5-10.1); POTASSIUM - SERUM 6.6 mmol/L (3.5-5.1)
[2017-04-25 01:27] LABS: INR 1.64 (0.85-1.17); PROTIME 19.4 SECONDS (11.6-15.0)
--- NOTE | 2017-04-25 01:50 | NUR ---
PT ARRIVED ON UNIT VIA STRETCHER, HOOKED TO MONITORS, PT ALERT AND ORIENTED, NO C/O AT THIS TIME, WILL CON'T TO MONITOR
--- NOTE | 2017-04-25 03:30 | NUR ---
PT RESTING AT THIS TIME, WILL CON'T TO MONITOR
--- NOTE | 2017-04-25 05:11 | NUR ---
PT RESTING COMFORTABLY AT THIS TIME, DENIES ANY NEEDS, WILL CON'T TO MONITOR
[2017-04-25 06:22] LABS: ANION GAP 25.2 mmol/L (8-16); CARBON DIOXIDE 19.8 mmol/L (21.0-32.0)
--- NOTE | 2017-04-25 07:00 | NUR ---
PT REPORT REC'D, PT CARE ASSUMED. PT RESTING WITH EYES CLOSED, NO C/O PAIN, VSS, ROOM AIR. RIGHT ARM FISUTLA, BRUIT AND THRILL NOTED. SHIFT ASSESSMENT COMPLETED, SEE FLOW SHEET. ROOM FREE OF CLUTTER, CALL LIGHT IN REACH, WILL CONTINUE TO MONITOR PT.
--- NOTE | 2017-04-25 07:15 | NUR ---
DR. WASHBURN AT THE BEDSIDE
--- NOTE | 2017-04-25 09:10 | NUR ---
PT FAMILY AT THE BEDSIDE, ALL QUESTIONS ANSWERED, VSS, WILL CONTINUE TO MONITOR PT.
[2017-04-25] MEDS ORDERED: SENSIPAR30 MG PO (09:17)
[2017-04-25] MEDS ORDERED: NEPHRO-VITE RX1 TAB PO (09:17)
--- NOTE | 2017-04-25 10:44 | NUR ---
PT REPORT CALLED TO JESUS ZIMMERMAN RN, PT TRANSFERRED TO DIALYSIS UNIT VIA WHEELCHAIR, PT TO TRANSFER TO ROOM 2110 AFTER DIALYSIS.
--- NOTE | 2017-04-25 11:00 | NUR ---
RECIEVED REPORT FROM [facility] IN ICU, PATIENT IS IN DIAYLSIS AT THIS TIME, WILL COME TO FLOOR AFTER DIAYLSIS. CPOC
--- NOTE | 2017-04-25 13:23 | NUR ---
Patient Name: MITZI SAGASTUME Admission Status: ER Accout number: [id number] Admission Date: 04-25-2017 : 1940 Admission Diagnosis: Attending: Chandrakant Bullock Current LOS: 1 Anticipated DC Date: Planned Disposition: Home with Home Health Primary Insurance: HUMANA CHOICE PPO MCR ADVANT PLANNED EXTERNAL PROVIDER: [facility] Discharge Planning Comments: CM RECEIVED CALL FROM KIARA OF [facility], , WHO INFORMED CM THAT PT WAS READMITTED TO HOSPITAL THIS WEEKEND AND [facility] IS REVIEWING PT TO DETERMINE IF THEY WILL ACCEPT PT BACK OR DISCHARGE FOR NON COMPLIANCE. PT IS NOW ON HOLD FOR HOME HEALTH SERVICES DUE TO HOSPITAL ADMISSION. CM FAXED UPDATE TO [facility] AT [phone]. CM ATTEMPTED TO MEET WITH PT WHO WAS NOT IN ROOM, BEDSIDE NURSE REPORTS PT TO BE IN DIALYSIS. CM TO DISCUSS DISCHARGE PLANNING WITH PT WHEN SHE IS BACK IN HER ROOM AND AVAILABLE Product Design Manager: Sonny Griggs
--- NOTE | 2017-04-25 15:14 | NUR ---
RECEIVED PATIENT VIA WC FROM DIALYSIS. PATIENT TRANSFERED TO BED. BED IN LOWEST POSITION AND CALL LIGHT GIVEN TO PATIENT. PATIENT SITTING UP IN BED EATING AT THIS TIME. PATIENT EXPRESSED CONCERN REGARDING WOUND ON SACRUM. STATES IT'S NORMALLY PACKED AND COVERED, NOTHING IS COVERING IT AT THIS TIME. WILL ASK WOUND CARE TO LOOK AT IT. NO OTHER CONCERNS AT THIS TIME. CPOC.
--- NOTE | 2017-04-25 16:50 | NUR ---
Patient Name: MITZI SAGASTUME Encounter No: [id number] : 1940 Primary Insurance: HU[employer]NA CHOICE PPO MCR ADVANT Anticipated DC Date: Planned Disposition: Home with Home Health External Planned Provider: [facility] DCP follow-up note: * Is the patient Alert and Oriented? Yes 0 * How many steps to enter\exit or inside your home? RAMP 0 * PCP DR. HOWARD 0 * Pharmacy [facility] [address] 0 * Preadmission Environment Home with Family 0 * ADLs Partial Dependent 0 * Partial ADLs (Assistance needed) Ambulation Bathing Dressing Medication Management Transfers 0 * Equipment Bedside [facility] Hospital Bed Other Oxygen Walker 0 * Other Equipment TRANSFER CHAIR HOME AND PORTABLE OXYGEN [employer] - MEDICAL EQUIPMENT PROVIDER 0 * List name and contact numbers for known caregivers / representatives who currently or will assist patient after discharge: CHERRY RING, DTR, 0 * Community resources currently utilized Home Health Other 0 * Please name any agencies selected above. [facility] OUTPATIENT DIALYSIS, [facility], M/W/F, 1145 - FIRST APPOINTMENT WAS FOR 04-25-17 AT 1045AM. 0 * Additional services required to return to the preadmission environment? No 0 * Can the patient safely return to the preadmission environment? Yes 0 * Has this patient been hospitalized within the prior 30 days at any hospital? Yes 0 CM MET WITH PT IN ROOM TO DISCUSS DISCHARGE PLANNING AND NEEDS. PT REPORTS LIVING AT HOME DEPENDENT ON HER DAUGHTER. PT REPORTS HAVING ALL NEEDED EQUIPMENT AT HOME FROM [facility]. PT HAS HOME HEALTH WITH [facility]; CM EXPLAINED TO PT THAT SHE IS IN DANGER OF LOSING HER HOME HEALTH DUE TO NON COMPLIANCE WITH MEDICAL INSTRUCTIONS; PT DENIES BEING NON COMPLIANT, REPORTS SHE IS JUST NOT ABLE TO GO TWO DAYS BETWEEN HER DIALYSIS DAYS. PT IS SCHEDULED FOR DIALYSIS AT [facility], MW SCHEDULE AT 1145 AM, FAMILY TO TRANSPORT. CM DISCUSSED AVAILABILITY OF HOME HEALTH, REHAB SERVICES AND MEDICAL EQUIPMENT. PT PLANS TO GO HOME WITH HER DAUGHTER AND [facility]. PT REPORTS HER FAMILY WILL PICK HER UP FOR DISCHARGE HOME. [facility] IS CONSIDERING NO ACCEPTING PT BACK DUE TO NON COMPLIANCE. CM TO FOLLOW AND ASSIST NEEDED. Sonny Griggs, CASE MANAGEMENT
--- NOTE | 2017-04-25 17:28 | NUR ---
PATIENT RESTING IN BED. NO REQUESTS AT THIS TIME. BED IN LOWEST POSITION AND LOCKED. CALL LIGHT IN REACH. CPOC.
--- NOTE | 2017-04-25 19:11 | NUR ---
PATIENT SITTING ON SIDE OF BED EATING DINNER. CALL LIGHT IN REACH. INSTRUCTED TO PUSH CALL LIGHT WHEN SHE GETS READY TO LAY DOWN AND STRESSED SHE IS NOT TO STAND UP BY HERSELF. PATIENT VOICED UNERSTANDING. NO REQUESTS AT THIS TIME. BED IN LOWEST POSITION AND LOCKED. CPOC.
--- NOTE | 2017-04-25 20:00 | NUR ---
ROUNDING NOTE: AT THE CHANGE OF SHIFT, PT IS NOTED TO BE ON BEDPAN IN PAIN AND STRAINING TO HAVE A BM. PT IS DIGGING IN HER RECTUM TO RELIEVE HERSELF WITHOUT SUCCESS. PT STATES THAT SHE HAS NOT HAD A BM X 2 DAYS. BS PRESENT IN ALL FOUR QUADS. WILL CALL ANSWERING SERVICE FOR ORDERS.
--- NOTE | 2017-04-25 21:30 | NUR ---
PT CONTINUING TO STRAIN TO HAVE BM. THERE IS A SMALL AMOUNT OF BLOOD IN THE BED BAKER, WHICH IS EITHER FROM THE CONSTIPATION VS. PT'S NAILS FROM HER CONTINUING TO DIG IN HER RECTUM. PT C/O SEVERE PAIN IN RECTUM. CALLED ANSWERING SERVICE AND RECEIVED A CALL BACK FROM LAMIN OZUNA [facility]N WITH ORDERS FOR 34GMS OF MIRALAX X1 AND A DUCOLAX SUPPOSITORY X1.
--- NOTE | 2017-04-26 01:00 | NUR ---
PT HAD POSITIVE RESULTS FROM BOWEL MEDS THAT WERE GIVEN EARLIER IN SHIFT W/ LARGE SOFT BOWEL MOVEMENT WITH SCANT BLOOD. PT REPORTS FEELING A LOT BETTER NOW. WILL CONT TO MONITOR. STAGE III PRESENT ON COCCYX WITHOUT A DRESSING AT THIS TIME. WOUND CONSULT ORDERED, BUT THERE IS NO WOUND CARE ORDERS AT THIS TIME. PER PATIENT, SHE HAS A HOME CARE NURSE WHO HAS BEEN CHANGING HER DRESSING DAILY, BUT SHE IS UNSURE OF EXACTLY WHAT IS BEING USED ON IT. WILL REPORT TO DAY SHIFT NURSE TO FOLLOW-UP.
[2017-04-26 05:05] VITALS: BP 102/52
[2017-04-26 05:31] LABS: BASOPHILS 0.3 % (0-2); EOSINOPHILS 0.9 % (0-7); HEMATOCRIT 30.4 % (36.0-48.0); HEMOGLOBIN 9.7 g/dL (12-16); IMMATURE GRANULOCYTES 0.3 % (0-5); LYMPHOCYTES 16.7 % (15-50); MCH 32.7 pg (26.0-34.0); MCHC 31.9 g/dL (31.0-37.0); MCV 102.4 fL (80.0-100.0); MEAN PLATELET VOLUME 10.6 fL (7.4-10.4); MONOCYTES 16.1 % (2-11); NEUTROPHILS 65.7 % (40-80); PLATELET COUNT 148 10x3/uL (130-400); RBC 2.97 10x6/uL (4.00-5.40); RDW 16.4 % (11.5-14.5); WBC 6.5 10x3/uL (4.8-10.8)
[2017-04-26 05:42] LABS: CREATININE - SERUM 6.7 mg/dL (0.6-1.3); PHOSPHOROUS 6.3 mg/dL (2.5-4.9)
[2017-04-26 06:07] LABS: ANION GAP 17.3 mmol/L (8-16); CARBON DIOXIDE 25.7 mmol/L (21.0-32.0)
[2017-04-26 06:09] LABS: CALCIUM 6.2 mg/dL (8.5-10.1)
--- NOTE | 2017-04-26 07:20 | NUR ---
RECEIVED REPORT FROM TRACTOR DRIVER TEAMSTER. MORNING ROUNDS MADE. PATIENT SITTING ON SIDE OF BED. DENIES ANY NEEDS AT THIS TIME. CALL LIGHT IN REACH. CPOC.
[2017-04-26 08:00] VITALS: BP 112/63
--- NOTE | 2017-04-26 08:48 | NUR ---
PATIENT SITTING ON SIDE OF BED EATING BREAKFAST. MORNING MEDS GIVEN. NO REQUESTS FROM PATIENT AT THIS TIME. BED IN LOWEST POSITION AND LOCKED WITH CALL LIGHT IN REACH. CPOC.
--- NOTE | 2017-04-26 11:37 | NUR ---
PATIENT LAYING IN BED WITH EYES CLOSED. CHEST RISES AND FALLS EQUAL BILAT. CALL LIGHT IN REACH. CPOC.
[2017-04-26 12:00] VITALS: BP 78/37
--- NOTE | 2017-04-26 12:19 | NUR ---
PATIENT SITTING ON SIDE OF BED EATING LUNCH. NO REQUESTS AT THIS TIME. CALL LIGHT IN REACH. CPOC.
--- NOTE | 2017-04-26 14:02 | NUR ---
PATIENT LAYING IN BED WITH EYES CLOSED, AROUSED EASILY WHEN SPOKEN TO. MEDS GIVEN WITHOUT PROBLEM. NO REQUESTS AT THIS TIME. CALL LIGHT IN REACH. CPOC.
--- NOTE | 2017-04-26 14:23 | NUR ---
PATIENT REFUSING TO WEAR SCDS AT THIS TIME, EDUCATION PROVIDED.
--- NOTE | 2017-04-26 15:04 | NUR ---
PATIENT LAYING IN BED, EYES CLOSED. AROUSED EASILY WHEN SPOKEN TO. TOOK MEDS WITH NO PROBLEM. NO REQUESTS AT THIS TIME. CPOC.
[2017-04-26 15:39] VITALS: BP 110/44
--- NOTE | 2017-04-26 16:20 | NUR ---
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 She has had this wound for over a year. The wound bed is pink and shiny. Edges are rolloed and macerated. Drainage appears to be fibrinous. She is normally treated at [facility] wound clinic by Dr. Moody. Right bruce has a wound that measures 2cm x 1cm x scab and left bruce has 2.5cm x 1cm x scab. These wounds are several weeks old and were caused by scraping her legs on wheelchair during a fall at home. Coccyx wound is being treated with Maxorb AG and covered with 4x4s and medipore tape. (PT HAS PAPER TAPE ALLERGY). Bilateral shins are being covered with adaptic and a non-stick gauze and secured with medipore tape. She refuses an overlay mattress and is able to turn herself, but needs to be reminded to do so. Wound care will continue monitoring.
--- NOTE | 2017-04-26 17:31 | NUR ---
PATIENT SITTING UP ON SIDE OF BED. SHE ATE 100% OF HER DINNER. REQUESTS FOR ASSISTANCE IN LAYING DOWN. ONCE PATIENT WAS COMFORTABLE, VERIFIED CALL LIGHT IS IN REACH AND BED IS IN LOWEST POSITION AND LOCKED. CPOC.
--- NOTE | 2017-04-26 19:08 | NUR ---
END OF SHIFT ROUNDS MADE. PATIENT LAYING IN BED WITH EYES CLOSED. CHEST RISES AND FALLS EVENLY BILAT. NAD NOTED. CALL LIGHT IN REACH. BED IN LOWEST POSITION AND LOCKED. CPOC.
--- NOTE | 2017-04-26 19:46 | NUR ---
PT IN BED RESTING. AROUSES TO VOICE. PT DENIES ANY NEEDS AT THIS TIME.
[2017-04-26 22:54] VITALS: BP 145/65
--- NOTE | 2017-04-27 00:30 | NUR ---
IV REMOVED AT THIS TIME. CATH TIP INTACT. WILL ATTEMPT TO RESITE.
[2017-04-27 04:27] VITALS: BP 140/60
[2017-04-27 05:46] LABS: BASOPHILS 0.5 % (0-2); EOSINOPHILS 2.4 % (0-7); HEMATOCRIT 30.2 % (36.0-48.0); HEMOGLOBIN 9.4 g/dL (12-16); IMMATURE GRANULOCYTES 0.2 % (0-5); MCH 32.4 pg (26.0-34.0); MCHC 31.1 g/dL (31.0-37.0); MCV 104.1 fL (80.0-100.0); MEAN PLATELET VOLUME 10.5 fL (7.4-10.4); MONOCYTES 13.4 % (2-11); NEUTROPHILS 53.5 % (40-80); PLATELET COUNT 145 10x3/uL (130-400); RDW 16.1 % (11.5-14.5); WBC 6.6 10x3/uL (4.8-10.8)
[2017-04-27 06:15] LABS: CARBON DIOXIDE 25.6 mmol/L (21.0-32.0); CREATININE - SERUM 7.6 mg/dL (0.6-1.3); PHOSPHOROUS 7.8 mg/dL (2.5-4.9)
[2017-04-27 06:16] LABS: ANION GAP 18.6 mmol/L (8-16); POTASSIUM - SERUM 4.2 mmol/L (3.5-5.1)
[2017-04-27 06:19] LABS: CALCIUM 5.7 mg/dL (8.5-10.1)
--- NOTE | 2017-04-27 07:00 | NUR ---
RN NOTE: PT REMAINED ASLEEP IN BED FOR THE NIGHT. SHE IS STABLE WITH NO COMPLAINTS. WILL CONTINUE TO MONITOR.
--- NOTE | 2017-04-27 07:30 | NUR ---
INTRODUCED MYSELF TO PT PRIMARY RN FOR TODAYS SHIFT. SHIFT ASSESSMENT COMPLETED. PT FAMILAR WITH ME FROM PREVIOUS STAYS. PT A&O SITTING UP IN BED RESTING QUIETLY. RR NONLABORED WITH NC @3L IN PLACE. PT DENIES ANY CURRENT PAIN OR NEEDS. CL IN REACH. WILL CPOC.
[2017-04-27 08:34] VITALS: BP 97/47
--- NOTE | 2017-04-27 09:01 | NUR ---
PT LEAVING FOR DIALYSIS. AM MEDICATIONS GIVEN. PT DENIES ANY CURRENT PAIN OR NEEDS. WILL CPOC.
--- NOTE | 2017-04-27 13:45 | NUR ---
PT BACK FROM DIALYSIS AND STATES SHE IS FEELING WELL OVERALL. ELEVATED R.ARM ON PILLOW TO HELP REDUCE SWELLING. PT DENIES ANY CURRENT PAIN OR NEEDS AT THIS TIME. WILL CTM.
--- NOTE | 2017-04-27 14:35 | NUR ---
PT CONFIRMS DNR. DNR PAPER SIGNED IN CHART AND ORDER IN COMPUTER.
[2017-04-27 15:28] VITALS: BP 100/50
--- NOTE | 2017-04-27 19:56 | NUR ---
PT IS RESTING IN BED WATCHING TV. ALERT AND ORIENTED X 3. DENIES PAIN OR DISCOMFORT AT THIS TIME. LEFT FA SALINE LOCK NOTED. NO REDNESS OR EDEMA NOTED AT THE INSERTION SITE. RIGHT ARM FISTULA NOTED WITH GOOD BRUITT AND THRILL. O2 IS ON @ 3LPM PER NC. NO SOB NOTED. SR'S ARE UP X 3 IN BED. CALL LIGHT AND BEDSIDE TABLE ARE WITHIN EASY REACH.
[2017-04-27 21:14] VITALS: BP 100/37
--- NOTE | 2017-04-27 21:56 | NUR ---
PT IS RESTING QUIETLY IN BED WITH EYES CLOSED. RESPS ARE EVEN AND UNLABORED. NO ACUTE DISTRESS NOTED.
[2017-04-27 23:29] VITALS: BP 101/46
--- NOTE | 2017-04-28 00:01 | NUR ---
RESTING IN BED WITH EYES CLOSED.
--- NOTE | 2017-04-28 02:32 | NUR ---
PT RESTING IN BED WITH EYES CLOSED. NO DISTRESS NOTED.
[2017-04-28 04:05] VITALS: BP 119/55
--- NOTE | 2017-04-28 04:47 | NUR ---
PT RESTING IN BED WITH EYES CLOSED.
--- NOTE | 2017-04-28 05:30 | NUR ---
BUTTERMAKER AT BEDSIDE TO OBTAIN VITALS, WILL CONTINUE WITH PLAN OF CARE. CALL LIGHT IN REACH.
[2017-04-28 06:17] LABS: BASOPHILS 0.5 % (0-2); EOSINOPHILS 2.3 % (0-7); HEMATOCRIT 31.5 % (36.0-48.0); HEMOGLOBIN 9.7 g/dL (12-16); IMMATURE GRANULOCYTES 0.2 % (0-5); LYMPHOCYTES 20.3 % (15-50); MCH 32.2 pg (26.0-34.0); MCHC 30.8 g/dL (31.0-37.0); MCV 104.7 fL (80.0-100.0); MEAN PLATELET VOLUME 10.6 fL (7.4-10.4); MONOCYTES 16.9 % (2-11); NEUTROPHILS 59.8 % (40-80); PLATELET COUNT 160 10x3/uL (130-400); RBC 3.01 10x6/uL (4.00-5.40); RDW 16.2 % (11.5-14.5); WBC 6.2 10x3/uL (4.8-10.8)
[2017-04-28 06:32] LABS: ANION GAP 17.1 mmol/L (8-16); CARBON DIOXIDE 26.2 mmol/L (21.0-32.0); CREATININE - SERUM 5.7 mg/dL (0.6-1.3); PHOSPHOROUS 6.3 mg/dL (2.5-4.9); POTASSIUM - SERUM 4.3 mmol/L (3.5-5.1)
[2017-04-28 06:33] LABS: CALCIUM 5.8 mg/dL (8.5-10.1)
[2017-04-28 08:55] VITALS: BP 111/57
--- NOTE | 2017-04-28 09:16 | NUR ---
MORNING MEDICATIONS GIVEN AND PT SWALLOWED WITHOUT ANY DIFFICULTIES NOTED. PT REFUSED HER TUMS AND STATES "IM NOT TAKING IT, IT MAKES ME CONSTIPATED" PT VERY ADAMENT ABOUT DOING THINGS HOW SHE WANTS AND WILL OFTEN BE NONCOMPLIANT WITH MEALS AND MEDICATIONS. PT RESTING AND STATES SHE IS COMFORTABLE SITTING ON EDGE OF BED. DENIES ANY FURTHER NEEDS AT THIS TIME. WILL CPOC.
[2017-04-28 12:05] VITALS: BP 116/47
--- NOTE | 2017-04-28 12:07 | NUR ---
COCCYX DRSG CHANGE COMPLETED ORDERED. APPLIED LOTION TO BILAT LEGS AND ARMS R/T DRY DUSKY SKIN, PT VOICED THANKS. PT APPEARS FLAT OR SAD ASKED HER IF I COULD DO ANYTHING OR IF SHE WAS OKAY AND SHE STATES SHE IS IN PAIN BUT REFUSES ANY MEDICATION FOR IT. WILL CONTINUE WITH PLAN OF CARE AND ENCOURAGE PTS HAPPINESS.
[2017-04-28 15:49] VITALS: BP 95/40
--- NOTE | 2017-04-28 16:58 | NUR ---
ASSISTED PT UP IN BED TO EAT DINNER. PT VOICED THANKS AND DENIES ANY FURTHER NEEDS AT THIS TIME. CL IN REACH, BED IN LOWEST, SIDE RAILS X2, WILL CPOC.
--- NOTE | 2017-04-28 19:37 | NUR ---
PT ASLEEP. LAYING ON RIGHT SIDE. RESPIRATIONS EVEN AND UNLABORED. NO S/S OF DISTRESS. BED LOW AND CALL LIGHT IN REACH. WILL CPOC
[2017-04-28 21:38] VITALS: BP 110/34
[2017-04-29 01:30] VITALS: BP 97/53
--- NOTE | 2017-04-29 03:03 | NUR ---
PT ASLEEP, STILL ON RIGHT SIDE. AROUSES TO VERBAL STIMULI. DENIES ANY NEEDS. RESP. RRR. BED LOW AND CALL LIGHT IN REACH. WILL CPOC
[2017-04-29 04:53] VITALS: BP 107/49
[2017-04-29 06:29] LABS: BASOPHILS 0.5 % (0-2); EOSINOPHILS 2.9 % (0-7); IMMATURE GRANULOCYTES 0.2 % (0-5); MCH 32.8 pg (26.0-34.0); MCHC 31.3 g/dL (31.0-37.0); MCV 104.9 fL (80.0-100.0); MEAN PLATELET VOLUME 10.9 fL (7.4-10.4); MONOCYTES 16.1 % (2-11); NEUTROPHILS 58.3 % (40-80); RBC 3.05 10x6/uL (4.00-5.40); RDW 16.3 % (11.5-14.5); WBC 6.6 10x3/uL (4.8-10.8)
[2017-04-29 06:33] LABS: PLATELET COUNT 217 10x3/uL (130-400)
[2017-04-29 06:39] LABS: INR 1.31 (0.85-1.17); PROTIME 16.2 SECONDS (11.6-15.0)
[2017-04-29 06:44] LABS: ANION GAP 17.7 mmol/L (8-16); CARBON DIOXIDE 26.2 mmol/L (21.0-32.0); CREATININE - SERUM 7.1 mg/dL (0.6-1.3); PHOSPHOROUS 7.5 mg/dL (2.5-4.9); POTASSIUM - SERUM 4.9 mmol/L (3.5-5.1)
[2017-04-29 06:46] LABS: CALCIUM 5.8 mg/dL (8.5-10.1)
--- NOTE | 2017-04-29 08:00 | NUR ---
AM ROUNDS COMPLETED. SHIFT ASSESSMENT DONE. ASSISTED PT UP ON EDGE OF BED TO EAT BREAKFAST. PT STATES SHE SLEPT WELL. MORNING MEDICATIONS GIVEN, PT REFUSED HER TUMS USUAL AND STATES "NO ILL NEVER TAKE THEM BECAUSE THEY MAKE ME CONSTIPATED AND THE DOCTOR KNOWS IM NOT" PTS BILAT LEGS STILL REDDENED BUT OVERALL SKIN APPEARANCE LOOKS MUCH BETTER THAN YESTERDAY COMPARED TO THE DUSKY/DRY SKIN. WILL CONTINUE TO APPLY LOTION AND PROMOTE HEALTHY SKIN CARE. PT VOICED THANKS AND DENIES ANY FURTHER NEEDS AT THIS TIME. REJI FAITH DRSG CDI AND SWAB CAPS IN USE, FLUSHED WITHOUT ANY DIFFICULTIES. CL IN REACH, BED IN LOWEST, SIDE RAILS X2. WILL CPOC.
[2017-04-29 08:26] VITALS: BP 118/55
--- NOTE | 2017-04-29 10:57 | NUR ---
PTS DAUGHTER INQUIRING ABOUT DISCHARGE OR SURGERY PLANS ETC. NOTE INDICATES POSS D/C BUT HOME HD IS NOT SAFE FOR PATIENT EVEN THOUGH SHE REALLY WANTS IT. I HAVE DISCUSSED WITH DAUGHTER MYSELF AND SHE AGREES THAT HD THROUGH THE CENTER WOULD BE SAFER AND COULD HELP PREVENT READMISSIONS INTO THE HOSPITAL. WILL DO A FISTULAGRAM TOMORROW IF PT IS NOT DISCHARGED ELSEWISE IT CAN BE SCHEDULED OUTPATIENT. PAGED [employer] RENAL SUPERVISOR DAIRY SANITATION AND WILL FIND OUT GAME PLAN.
[2017-04-29 12:18] VITALS: BP 91/40
--- NOTE | 2017-04-29 13:45 | NUR ---
PT LEAVING FOR DIALYSIS. NO CURRENT NEEDS. WILL CPOC.
--- NOTE | 2017-04-29 18:32 | NUR ---
PT BACK FROM DIALYSIS AND RESTING IN BED. PT STATES SHE IS FEELING WELL AND DENIES ANY PAIN OR NEEDS. PT WAS NOT DISCHARGED AND RENAL NEVER RETURNED CALL SO APPARENTLY WILL BE PLANNING ON PROCEDURE TOMORROW PER HIS NOTE YESTERDAY. DISCUSSED THIS WITH PT AND SHE VERBALIZED UNDERSTANDING. WILL PASS OFF IN REPORT.
--- NOTE | 2017-04-29 19:20 | NUR ---
PT ASLEEP. RESPIRATIONS EVEN AND UNLABORED. NO S/S OF DISTRESS. CALL LIGHT IN REACH. WILL CPOC
[2017-04-29 20:00] VITALS: BP 125/46
--- NOTE | 2017-04-29 22:01 | NUR ---
PT SITTING ON SIDE OF BED. MEDS GIVEN AND ASSISTED PT TO LAY DOWN. PT DENIES ANY NEEDS. BED LOW AND CALL LIGHT IN REACH. WILL CPOC
--- NOTE | 2017-04-30 03:46 | NUR ---
PT ASLEEP. LAYING ON RIGHT SIDE. RESPIRATIONS EVEN AND UNLABORED. NO S/S OF DISTRESS. BED LOW AND CALL LIGHT IN REACH. WILL CPOC
[2017-04-30 05:09] LABS: BASOPHILS 0.5 % (0-2); EOSINOPHILS 2.5 % (0-7); HEMATOCRIT 32.9 % (36.0-48.0); HEMOGLOBIN 10.2 g/dL (12-16); IMMATURE GRANULOCYTES 0.2 % (0-5); LYMPHOCYTES 18.2 % (15-50); MCH 32.5 pg (26.0-34.0); MCV 104.8 fL (80.0-100.0); MEAN PLATELET VOLUME 10.6 fL (7.4-10.4); MONOCYTES 15.6 % (2-11); PLATELET COUNT 234 10x3/uL (130-400); RBC 3.14 10x6/uL (4.00-5.40); RDW 16.1 % (11.5-14.5); WBC 5.7 10x3/uL (4.8-10.8)
[2017-04-30 05:31] LABS: CARBON DIOXIDE 29.4 mmol/L (21.0-32.0)
[2017-04-30 05:36] LABS: ANION GAP 14.7 mmol/L (8-16); CREATININE - SERUM 4.7 mg/dL (0.6-1.3); PHOSPHOROUS 4.8 mg/dL (2.5-4.9); POTASSIUM - SERUM 4.1 mmol/L (3.5-5.1)
[2017-04-30 05:37] LABS: CALCIUM 6.5 mg/dL (8.5-10.1)
--- NOTE | 2017-04-30 05:53 | NUR ---
PULLED PT UP IN BED. REPOSITIONED. PT DENIES ANY NEEDS. NO S/S OF DISTRESS. BED LOW AND CALL LIGHT IN REACH. WILL CPOC
[2017-04-30 07:48] VITALS: BP 133/57
--- NOTE | 2017-04-30 08:24 | NUR ---
AM ROUNDS - PT IS AWAKE AT THIS TIME IN BED. PT IS ON ROOM AIR. IV TO LEFT FA, SL. RESERVE RIGHT ARM, AVF. PT IS UP WITH ASSIST. BED AT LOWEST POSITION. CALL COLIN IN USE/REACH. SIDE RAILS UP X2. WILL CONTINUE TO MONITOR
[2017-04-30 12:03] VITALS: BP 112/53
--- NOTE | 2017-04-30 16:45 | NUR ---
PT DISCHARGED. D/C INSTRUCTIONS PROVIDED TO PT AND FAMILY, POA SIGNED PAPERWORK. IV CATHETER REMOVED WTIH CATHTER TIP INTACT. PT DENIES FURTHER NEEDS, WILL BE LEAVING UNIT VIA WHEELCHAIR AND GOING HOME WITH FAMILY MEMBER.
--- NOTE | 2017-04-30 17:36 | NUR ---
PT LEFT FLOOR VIA WHEELCHAIR. WILL D/C
--- NOTE | 2017-05-02 09:10 | NUR ---
Patient Name: MITZI SAGASTUME Encounter No: [id number] : 1940 Primary Insurance: [employer] PPO MCR [employer] Anticipated DC Date: 04-30-2017 Planned Disposition: Home with Home Health External Planned Provider: [facility] DCP follow-up note: CM REVIEWED CHART, PT DISCHARGED HOME OVER WEEKEND. CM CALLED [facility], , SPOKE TO PIEDAD, NOTIFIED OF DISCHARGE; PT PLACED ON HOME HEALTH SCHEDULE TO RESUME 05-03-17. CM FAXED DISCHARGE INFORMATION TO [facility] AT [phone]. Sonny Griggs, CASE MANAGEMENT
--- NOTE | 2017-05-08 16:32 | NUR ---
CALL RECEIVED FROM PATIENTS' FAMILY MEMBER STATING THAT SHE DID NOT RECEIVE HER MEDICINES BACK WHEN SHE WAS DISCHARGED LAST TUESDAY. PLACED CALL [facility] AND SPOKE WITH DANIELLE, WHO STATES THAT THERE ARE TWO BAGS OF MEDICATION BELONGING TO MS SAGASTUME. FAMILY STATED THAT THEY WILL COME GET THE MEDICATION TOMORROW. INFORMED DANIELLE IN THE PHARMACY.
== END 2017-04-30 17:36 | disposition home health service (06) | DRG 640 ==
LOC: D.ER 23:44 → D.M2 04-25 01:18 → D.ICU 04-25 01:18 → D.M2 04-25 10:46 → D.SDCHOLD 04-25 15:51 → D.M2 04-25 15:52
PROVIDERS: Family Medicine; ADMIT Internal Medicine Nephrology
PROC: 5A1D70Z Performance of Urinary Filtration, Intermittent, Less than 6 Hours Per Day (ICD-10-PCS; principal; 2017-04-25)
DX: E87.5 Hyperkalemia (principal); N18.6 End stage renal disease; J96.01 Acute respiratory failure with hypoxia; L89.153 Pressure ulcer of sacral region, stage 3; I50.21 Acute systolic (congestive) heart failure; I13.2 Hypertensive heart and chronic kidney disease with heart failure and with stage 5 chronic kidney disease, or end stage renal disease; E11.22 Type 2 diabetes mellitus with diabetic chronic kidney disease; Z99.2 Dependence on renal dialysis; Z91.15 Patient's noncompliance with renal dialysis; I48.2 Chronic atrial fibrillation; D63.1 Anemia in chronic kidney disease

== ENCOUNTER 2017-05-08 21:43 | Inpatient (IN) | payer MEDICARE, MEDICAID ==
[~2017-05-08] VITALS: Ht 162.6 cm; Wt 82.9 kg
[2017-05-08 22:17] LABS: BASOPHILS 0.6 % (0-2); EOSINOPHILS 1.4 % (0-7); HEMATOCRIT 37.1 % (36.0-48.0); HEMOGLOBIN 11.3 g/dL (12-16); IMMATURE GRANULOCYTES 0.3 % (0-5); LYMPHOCYTES 24.3 % (15-50); MCH 32.6 pg (26.0-34.0); MCHC 30.5 g/dL (31.0-37.0); MCV 106.9 fL (80.0-100.0); MEAN PLATELET VOLUME 10.2 fL (7.4-10.4); MONOCYTES 9.1 % (2-11); NEUTROPHILS 64.3 % (40-80); PLATELET COUNT 228 10x3/uL (130-400); RBC 3.47 10x6/uL (4.00-5.40); WBC 7.1 10x3/uL (4.8-10.8)
[2017-05-08 22:37] LABS: ALBUMIN 3.1 g/dL (3.4-5.0); ANION GAP 20.8 mmol/L (8-16); BILIRUBIN - TOTAL 0.95 mg/dL (0.2-1.3); CARBON DIOXIDE 21.4 mmol/L (21.0-32.0); CREATININE - SERUM 6.2 mg/dL (0.6-1.3); POTASSIUM - SERUM 4.2 mmol/L (3.5-5.1); PROTEIN - SERUM 7.7 g/dL (6.4-8.2)
[2017-05-08 22:41] LABS: CALCIUM 6.5 mg/dL (8.5-10.1)
[2017-05-09] VITALS (11 sets, daily range): BP systolic 110–160; BP diastolic 39–64; Ht 162.6 cm; Wt 82.9 kg
--- NOTE | 2017-05-09 00:57 | NUR ---
ARRIVED TO FLOOR VIA STRETCHER, ACCOMPANIED BY HOSPITAL STAFF. ORIENTED TO FLOOR AND PLACED ON TELEMETRY. MED REC REVIEWED, STATES SHE HASN'T HAD ANY OF HER HOME MEDS IN A WEEK BECAUSE THEY HAVE BEEN AT THE HOSPITAL. NO NEEDS AT THIS TIME, CALL LIGHT IN REACH. LABORED BREATHING, ELEVATED HOB. O2 ON 2LPM VIA NC. WILL CONTINUE TO MONITOR. CALL LIGHT IN REACH. BED ALARM ON.
--- NOTE | 2017-05-09 07:14 | NUR ---
PT'S CALL LIGHT ON. ANSWERED CALL LIGHT, PT REQUESTING A CUP OF ICE, WILL PROVIDE PT WITH CUP OF ICE. PT SITTING UP TO SIDE OF BED, A LITTLE SOB. DENIES ANY OTHER NEEDS AT THIS TIME. CALL LIGHT IN REACH, WILL CONTINUE PLAN OF CARE.
--- NOTE | 2017-05-09 10:14 | NUR ---
PT TRANSFERED TO DIALYSIS VIA BED, NAD NOTED.
--- NOTE | 2017-05-09 11:48 | NUR ---
1145 NI WENT TO VISIT PATIENT FOR INITIAL DISCHARGE PLANNING ASSESSMENT. SHE WAS NOT PRESENT IN HER ROOM. SPOKE Joe/ RHONDA, THE PRIMARY NURSE. THE PATIENT IS IN DIALYSIS. TC TO [facility] HAS BEEN HER PROVIDER FOR SERVICES THE LAST 2 DISCHARGES. CM WAS TRANSFERED TO [facility]. THE PATIENT DECLINED HOME HEALTH VISIT TO RESUME CARE ON TUESDAY, TUESDAY AND TUESDAY. [facility] WILL NOT ACCEPT THE PATIENT BACK ON SERVICE AT DISCHARGE.
--- NOTE | 2017-05-09 12:45 | NUR ---
TALKED TO DR. WASHBURN, STATED TO CONSULT DR. DYE SINCE FISTULA NOT WORKING, MARNIE HAS BEEN WORKING WITH THIS PT FOR A WHILE. ALSO GIVE 80 OF LASIX ONE TIME.
--- NOTE | 2017-05-09 13:29 | NUR ---
PT TRANSFERED BACK TO ROOM 2105 VIA BED, STILL C/O OF SOB. WILL ADMINISTER LASIX ORDERED.
--- NOTE | 2017-05-09 13:59 | NUR ---
RATIONALE FOR SCD'S EXPLAINED. REFUSED SCD'S
--- NOTE | 2017-05-09 14:06 | NUR ---
EXPLAINED RATIONAL FOR SCDS, PT REFUSED TO WEAR SCDS AT THIS TIME.
--- NOTE | 2017-05-09 15:18 | NUR ---
PATIENT IS BEING TRANSFERED TO ICU THIS AFTERNOON.
--- NOTE | 2017-05-09 17:12 | NUR ---
DR. DYE AT BEDSIDE, WANTS PT TO BE TRANSFERED TO ICU STAT. CALLED ICU TO GIVE REPORT AND TO NOTIFY THEM THAT PT NEEDED TO BE TRANSFERED STAT. 1730- PT TRANSFERED TO ICU VIA BED, BEDSIDE REPORT GIVEN TO ELIZABETH DURANT.
--- NOTE | 2017-05-09 18:23 | NUR ---
PT RECIEVED TO ICU APPROX 1700 ACCOMPANIED BY HOSPITAL FLOOR NURSE, REPORT GIVEN AT BEDSIDE, PT ALERT AND ORIENTED, ON 4L O2 NC, DENIES PAIN, DR DYE HERE FOR TRIALYSIS PLACEMENT, PT SIGNED CONSENT AND DENIED ANY QUESTIONS ABOUT PROCEDURE, TOLERATED PROCEDURE WELL, AFTERWARDS REPOSITIONED ONTO SIDE DUE TO WOUND ON COCCYX, DENIES ALL NEEDS, VSS, WILL CONTINUE TO MONITOR
--- NOTE | 2017-05-09 19:10 | NUR ---
Received patient resting in bed with eyes open awaiting dialysis, assessment completed per flowsheet. Patient AO x4, calm and cooperative. Eyes PERRLA @ 4mm with brisk response, sclera is white/clear. S1/S2 noted Controlled AFIB on telemetry with HR 79. Breathing is shallow and labored on 4L via NC with O2 sat 97%, lung sounds clear bilateral upper and mid with diminished lower. Abdomen is round and soft with bowel sounds active x4, non-tender. Scant urine production prior to shift, none at this time. Pressure ulcer noted mid buttocks, no drainage with dressing CDI. Full ROM all extremities with all pulses weakly palpable, cap refill < 3 sec. Trialysis cath R groin dressing CDI, old blood noted from insertion. 22g L upper arm PIV noted, patent with dressing CDI. Repositioned for comfort, denies further needs at this time. All VSS and will continue to monitor.
--- NOTE | 2017-05-09 20:00 | NUR ---
Dialysis in patient room setting up, patient repositioned for comfort. No further needs at this time, all VSS and will continue to monitor.
--- NOTE | 2017-05-09 21:17 | NUR ---
Dialysis started, patient vital signs stable. No reported difficulties, will continue to monitor.
--- NOTE | 2017-05-09 23:10 | NUR ---
Reassessment completed per flowsheet, patient laying in bed with eyes open and dialysis ongoing. Patient AO x4, calm and cooperative. S1/S2 noted Uncontrolled Afib on telemetry with HR 130. Breathing is slightly shallow and labored on 4L via NC with O2 sat 97%, lung sounds clear bilateral upper and mid with diminished lower. R groin Trialysis cath dressing CDI, no swelling/bleeding noted. Repositioned for comfort, denies further needs at this time. All VSS and will continue to monitor.
[2017-05-10] VITALS (14 sets, daily range): BP systolic 93–128; BP diastolic 39–66
--- NOTE | 2017-05-10 00:20 | NUR ---
Dialysis complete, patient tolerated well and is laying in bed with eyes closed. Breathing is shallow and unlabored on 4L via NC with O2 sat 97%, all pulses weakly palpable with cap refill < 3 sec. No further needs at this time, all VSS and will continue to monitor.
--- NOTE | 2017-05-10 01:00 | NUR ---
Patient still Tachy post dialysis, will continue to monitor. Repositioned for comfort, oral care declined. No further needs at this time, all VSS and will continue to monitor.
--- NOTE | 2017-05-10 03:10 | NUR ---
Reassessment completed per flowsheet, patient laying in bed with eyes closed. Patient AO x4, calm and cooperative. S1/S2 noted Uncontrolled Afib on telemetry with HR 124. Breathing is shallow and unlabored on 4L via NC with O2 sat 97%, lung sounds clear bilateral upper and mid with diminished lower. R groin trialysis cath dressing CDI, not currently in use. All pulses weakly palpable with cap refill < 3 sec, skin warm/dry to touch. Patient c/o chronic pain on buttocks, repositioned and will consult wound care in AM. Repositioned for comfort, no further needs at this time and will continue to monitor.
--- NOTE | 2017-05-10 05:00 | NUR ---
AM labs collected without difficulty, patient repositioned for comfort. Patient placed on L side, states "Dr Sánchez told me I can't lay on my right side". Trialysis cath R groin dressing CDI, not surrently in use. No further needs at this time, all VSS and will continue to monitor.
--- NOTE | 2017-05-10 08:00 | NUR ---
pt resting quietly, vss, afebrile. awakens easily, follows command.
[2017-05-10 09:25] LABS: BASOPHILS 0.6 % (0-2); EOSINOPHILS 1.2 % (0-7); HEMATOCRIT 32.2 % (36.0-48.0); HEMOGLOBIN 10.1 g/dL (12-16); IMMATURE GRANULOCYTES 0.3 % (0-5); LYMPHOCYTES 22.6 % (15-50); MCH 32.6 pg (26.0-34.0); MCHC 31.4 g/dL (31.0-37.0); MEAN PLATELET VOLUME 10.3 fL (7.4-10.4); MONOCYTES 9.9 % (2-11); NEUTROPHILS 65.4 % (40-80); PLATELET COUNT 212 10x3/uL (130-400); RDW 16.1 % (11.5-14.5); WBC 6.7 10x3/uL (4.8-10.8)
[2017-05-10 09:26] LABS: MCV 103.9 fL (80.0-100.0)
[2017-05-10 09:28] LABS: ANION GAP 19.6 mmol/L (8-16); CARBON DIOXIDE 23.5 mmol/L (21.0-32.0); CREATININE - SERUM 5.6 mg/dL (0.6-1.3); POTASSIUM - SERUM 4.1 mmol/L (3.5-5.1)
--- NOTE | 2017-05-10 09:38 | NUR ---
RENAL SHELTERED WORKSHOP EXECUTIVE DIRECTOR HERE THIS AM. ASSISTED PT TO SIDE OF BED PER PT'S WISHES. MEAL TRAY SET UP AND PT FEEDS SELF W/O PROBLEMS. VSS. RESP EASY. DENIES PAIN. ASSISTED PT BACK TO BED AFTER SHE ATE 80% OF HER MEAL TRAY.
--- NOTE | 2017-05-10 11:19 | NUR ---
Attempted to assess dc plan/needs with patient - very sleepy. She would answer only 1 question before returning to sleep. Will attempt again later. CM will follow.
--- NOTE | 2017-05-10 13:02 | NUR ---
ASSISTED PT TO SITTING POSITION SIDE OF BED. PT ATE 60% OF LUNCH TRAT.
--- NOTE | 2017-05-10 17:15 | NUR ---
ASSISTED PT WITH MEAL TRAY, REPORT CALLED TO [facility]. [facility] TRANSFER BY BED TO [facility].
--- NOTE | 2017-05-10 18:00 | NUR ---
RECEIVED PT VIA BED IN STABLE CONDITION AAOX4 RESP UNLABORED 02 ON 2LPM NC NAD NOTED
[2017-05-11 01:11] VITALS: BP 89/48
--- NOTE | 2017-05-11 01:57 | NUR ---
PT IN BED RESTING. EVEN AND UNLABORED RESPIRATIONS NOTED.
--- NOTE | 2017-05-11 04:02 | NUR ---
PT RESTING COMFORTABLY, LYING ON HER RIGHT SIDE. EYES CLOSED, RESPIRATIONS EVEN AND UNLABORED. CONTINUE TO MONITOR CLOSELY. BED LOW, CALL LIGHT IN REACH, SIDE RAILS X 2, HOB 20 DEGREES.
[2017-05-11 04:29] VITALS: BP 83/42
[2017-05-11 05:23] LABS: BASOPHILS 0.5 % (0-2); EOSINOPHILS 2.2 % (0-7); HEMATOCRIT 30.6 % (36.0-48.0); HEMOGLOBIN 9.7 g/dL (12-16); IMMATURE GRANULOCYTES 0.2 % (0-5); LYMPHOCYTES 24.1 % (15-50); MCH 32.9 pg (26.0-34.0); MCHC 31.7 g/dL (31.0-37.0); MCV 103.7 fL (80.0-100.0); MEAN PLATELET VOLUME 10.3 fL (7.4-10.4); MONOCYTES 13.1 % (2-11); NEUTROPHILS 59.9 % (40-80); PLATELET COUNT 189 10x3/uL (130-400); RBC 2.95 10x6/uL (4.00-5.40); WBC 5.5 10x3/uL (4.8-10.8)
[2017-05-11 06:04] LABS: ANION GAP 21.1 mmol/L (8-16); CARBON DIOXIDE 22.4 mmol/L (21.0-32.0); CREATININE - SERUM 6.6 mg/dL (0.6-1.3); POTASSIUM - SERUM 4.5 mmol/L (3.5-5.1)
--- NOTE | 2017-05-11 07:25 | NUR ---
PT IN BED, WITH EYES CLOSED, EASILY AROUSES TO VOICE. RESP EVEN AND UNLABORED, LT UPPER ARM IV SL. BED LOW AND WHEELS LOCKED, BED ALARM ON. PT DENIES ANY NEEDS AT THIS TIME. CALL LIGHT IN REACH, NAD NOTED, WILL CONTINUE PLAN OF CARE.
[2017-05-11 07:31] VITALS: BP 131/57
--- NOTE | 2017-05-11 08:37 | NUR ---
ADMINISTERED AM MEDS, HELPED PT UP TO SIDE OF BED SO SHE CAN EAT BREAKFAST, PT VERY FLACCID TO RT SIDE. PT DENIES ANY NEEDS AT THIS TIME. CALL LIGHT IN REACH, NAD NOTED, WILL CONTINUE PLAN OF CARE.
--- NOTE | 2017-05-11 09:05 | NUR ---
PT TRANSFERED TO DIALYSIS VIA BED, NAD NOTED.
--- NOTE | 2017-05-11 13:12 | NUR ---
PT TRANSFERED BACK TO ROOM 2123 VIA BED, PT UP TO SIDE OF BED, EATING LUNCH, BLOOD SUGAR OF 87, NO COVERAGE GIVEN PER S/S. PT DENIES ANY NEEDS, CALL LIGHT IN REACH, NAD NOTED, WILL CONTINUE PLAN OF CARE.
[2017-05-11 15:12] VITALS: BP 133/46
--- NOTE | 2017-05-11 16:32 | NUR ---
BLOOD SUGAR OF 109, NO COVERAGE NEEDED PER S/S. PT IN BED, DENIES ANY NEEDS AT THIS TIME. CALL LIGHT IN REACH, NAD NOTED, WILL CONTINUE PLAN OF CARE.
--- NOTE | 2017-05-11 19:47 | NUR ---
RESUMED CARE OF PT, LYING IN BED RESPIRATIONS SOMEWHAT LABORED ON 2LPM VIA NC. 102 UCAF ON TELEMETRY. RIGHT GROIN TRIALYSIS SALINE LOCKED AND LEF UPPER ARM SALINE LOCKED. INCONTINENT EPISODE OF BOWEL CLEANED UP. PULLED UP IN BED AND REPOSITIONED FOR COMFORT. CALL LIGHT IN REACH. SEE NURSE ASSESSMENT.
[2017-05-11 21:32] VITALS: BP 106/47
--- NOTE | 2017-05-11 23:28 | NUR ---
Dialysis Coordinator: [facility] MWF am shift. SHAHRAM HANSEN.
[2017-05-12 02:21] VITALS: BP 100/47
[2017-05-12 05:51] LABS: BASOPHILS 0.6 % (0-2); EOSINOPHILS 1.4 % (0-7); HEMATOCRIT 33.5 % (36.0-48.0); HEMOGLOBIN 10.3 g/dL (12-16); IMMATURE GRANULOCYTES 0.2 % (0-5); LYMPHOCYTES 28.7 % (15-50); MCH 32.4 pg (26.0-34.0); MCHC 30.7 g/dL (31.0-37.0); MCV 105.3 fL (80.0-100.0); MEAN PLATELET VOLUME 10.5 fL (7.4-10.4); MONOCYTES 13.1 % (2-11); PLATELET COUNT 201 10x3/uL (130-400); RBC 3.18 10x6/uL (4.00-5.40); RDW 16.2 % (11.5-14.5)
[2017-05-12 06:19] VITALS: BP 111/57
[2017-05-12 06:26] LABS: ALBUMIN 2.6 g/dL (3.4-5.0); BILIRUBIN - DIRECT 0.48 mg/dL (0.00-0.30); BILIRUBIN - INDIRECT 0.42 mg/dL (0.00-1.00); BILIRUBIN - TOTAL 0.9 mg/dL (0.2-1.3); CARBON DIOXIDE 26.7 mmol/L (21.0-32.0); CREATININE - SERUM 5.5 mg/dL (0.6-1.3); PROTEIN - SERUM 6.4 g/dL (6.4-8.2)
[2017-05-12 06:38] LABS: ANION GAP 16.8 mmol/L (8-16); CALCIUM 6.6 mg/dL (8.5-10.1); POTASSIUM - SERUM 3.5 mmol/L (3.5-5.1)
--- NOTE | 2017-05-12 07:30 | NUR ---
PT IN BED, WITH EYES CLOSED, EASILY AROUSES TO VOICE, DIGITAL ACCOUNT COORDINATOR AT BEDSIDE TO GET VITAL SIGNS, HELPED DIGITAL ACCOUNT COORDINATOR REPOSITION PT IN BED, PT DENIES ANY NEEDS AT THIS TIME. RESP EVEN AND UNLABORED, LT UPPER ARM IV SL. BED LOW AND WHEELS LOCKED, BEDSIDE RAILS X2, CALL LIGHT IN REACH, NAD NOTED, WILL CONTINUE PLAN OF CARE.
[2017-05-12 07:42] VITALS: BP 122/37
--- NOTE | 2017-05-12 08:38 | NUR ---
AM MEDS GIVEN AT THIS TIME. PT UP TO SIDE OF BED, EATING BREAKFAST, DENIES ANY NEEDS AT THIS TIME. CALL LIGHT IN REACH, NAD NOTED, WILL CONTINUE PLAN OF CARE.
--- NOTE | 2017-05-12 11:08 | NUR ---
BLOODS SUGAR OF 144, NO COVERAGE NEEDED PER S/S. PT IN BED, DENIES ANY NEEDS AT THIS TIME. CALL LIGHT IN REACH, NAD NOTED, WILL CONTINUE TO MONITOR.
[2017-05-12 12:00] VITALS: BP 88/44
--- NOTE | 2017-05-12 12:45 | NUR ---
PT RECEIVED BACK TO ROOM 2123, VIA BED, VICENTA NOTED, ESOL TEACHER AT BEDSIDE TO HELP PT TO SIDE OF BED TO EAT LUNCH. PT DENIES ANY NEEDS AT THIS TIME, CALL LIGHT IN REACH, VICENTA NOTED, WILL CONTINUE PLAN OF CARE.
--- NOTE | 2017-05-12 13:44 | NUR ---
Nutrition Follow Up: Pt is eating 90% meal avg on a regular diet. +BM 05/11/17. Labs reviewed. Meds noted including Megace. Rec continue current diet. Rec continue appetite stimulant. RD following.
--- NOTE | 2017-05-12 14:54 | NUR ---
PT'S DAUGHTER AT BEDSIDE, CONCERN THAT PT MIGHT HAVE HAD ANOTHER STROKE, STATED THAT SHE DOES NOT THINK PT SHOULD HAVE SURGERY IF SHE HAD ANOTHER STROKE. 1457- CALLED MOUNIKA NUNEZ AND INFORMED HER ABOUT DAUGHTERS CONCERNS. MOUNIKA NUNEZ STATED TO ORDER A CTA OF THE HEAD WITH CONTRAST SINCE PT WILL HAVE DIALYSIS TOMORROW.
--- NOTE | 2017-05-12 15:19 | NUR ---
CONSENTS SIGNED BY DAUGHTER AND PLACED ON CHART.
[2017-05-12 15:39] VITALS: BP 112/48
--- NOTE | 2017-05-12 16:39 | NUR ---
BLOOD SUGAR OF 138, NO COVERAGE NEEDED PER S/S. PT UP TO SIDE OF BED, DENIES ANY NEEDS AT THIS TIME. CALL LIGHT IN REACH, NAD NOTED.
--- NOTE | 2017-05-12 20:04 | NUR ---
RESUMED CARE OF PT, LYING IN BED RESPIRAITONS EVEN AND UNLABORED ON 2LPM VIA NC. 92 CAF ON TELEMETRY. RIGHT GROIN TRIALYSIS SALINE LOCKED AND LEFT UPPER ARM SALINE LOCKED. ICE CHIPS BROUGHT TO BEDSIDE. CALL LIGHT IN REACH. WILL CONTINUE TO MONITOR. SEE NURSE ASSESSMENT.
[2017-05-12 21:12] VITALS: BP 150/57
--- NOTE | 2017-05-13 00:04 | NUR ---
BED BATH AND LINENS CHANGED, REPOSITIONED FOR COMFORT.
[2017-05-13 01:05] VITALS: BP 116/55
--- NOTE | 2017-05-13 02:04 | NUR ---
LYING IN BED WITH EYES CLOSED, CALL LIGHT IN REACH. WILL CONTINUE WITH PLAN OF CARE.
[2017-05-13 05:21] LABS: HEMATOCRIT 31.9 % (36.0-48.0); HEMOGLOBIN 9.9 g/dL (12-16); LYMPHOCYTES 24.5 % (15-50); MEAN PLATELET VOLUME 10.3 fL (7.4-10.4); NEUTROPHILS 65.9 % (40-80); PLATELET COUNT 182 10x3/uL (130-400); RBC 3.09 10x6/uL (4.00-5.40); RDW 16.1 % (11.5-14.5); WBC 5.9 10x3/uL (4.8-10.8)
[2017-05-13 05:22] VITALS: BP 120/62
[2017-05-13 05:22] LABS: MCV 103.2 fL (80.0-100.0)
[2017-05-13 05:25] LABS: ANION GAP 19.5 mmol/L (8-16); CARBON DIOXIDE 25.5 mmol/L (21.0-32.0)
--- NOTE | 2017-05-13 07:15 | NUR ---
PT IN BED, WITH EYES CLOSED, EASILY AROUSES TO VOICE. RESP EVEN AND REGULAR, PT HAS BEEN NPO SINCE MIDNIGHT FOR PROCEDURE. PT DENIES ANY NEEDS AT THIS TIME. CALL LIGHT IN [facility], NAD NOTED, WILL CONTINUE PLAN OF CARE.
[2017-05-13 08:33] VITALS: BP 90/44
--- NOTE | 2017-05-13 10:46 | NUR ---
SPOKE WITH KYLAH FERNANDO, INFORMED HER THAT PT IS NOT ACTING HER SELF, AND THAT YESTEREDAY PT WAS HAVING A HARD TIME FINDING HER WORDS. DAUGHTER IS CONCERN THAT SHE MIGHT HAVE HAD A STROKE, BUT CT OF HEAD DID NOT SHOW ANYTHING. KYLAH FERNANDO STATED THAT SHE WOULD ORDER AN MRI TO TRY AND GET ANSWERS FOR DAUGHTER.
--- NOTE | 2017-05-13 11:45 | NUR ---
PRE- OP MEDS GIVEN. BLOOD SUGAR OF 95, NO COVERAGE NEEDED PER S/S. PT IN BED, DENIES ANY NEEDS AT THIS TIME, CALL LIGHT IN REACH, NAD NOTED.
[2017-05-13 12:50] VITALS: BP 109/49
--- NOTE | 2017-05-13 14:45 | NUR ---
PT TRANSFERED TO OR VIA BED, NAD NOTED.
--- NOTE | 2017-05-13 17:34 | NUR ---
PATIENT IN OR AT 1734 AND DENNIS IN OR SAID AT LEAST ANOTHER HOUR FOR SURGERY. NOTIFIED JENNA ON MED 2 THAT WOULD ATTEMPT TOMORROW. PAGED DR WASHBURN, HE SAID TOMORROW IS OK.
--- NOTE | 2017-05-13 19:42 | NUR ---
PRESENTED TO PACU BLEEDING FROM RIGHT GROIN AREA. DR DYE NOTIDIES. DR DYE AT BEDSIDE. VITAL SIGNS STABLE. PRESSURE DRESSING APPLIED. SAND BAGS PLACED PER DR DYE ORDERS. WILL CONTINUE TO MONITOR.
[2017-05-13 20:02] VITALS: BP 94/36
--- NOTE | 2017-05-13 20:16 | NUR ---
RETURNS FROM SURGERY 1999. PATIENT IS ALERT AND OTIENTED, HUNGRY AND HAS A DRINK AND A SNACK.
[2017-05-13 20:59] VITALS: BP 94/42
[2017-05-14] VITALS (55 sets, daily range): BP systolic 70–155; BP diastolic 34–95
--- NOTE | 2017-05-14 03:25 | NUR ---
PT LYING ON RIGHT SIDE WATCHING TV. GAVE SPRITE TO DRINK. RESP EASY. NO DISTRESS NOTED. CONTINUE COPY MANAGER'S PLAN OF CARE.
[2017-05-14 05:17] LABS: BASOPHILS 0.8 % (0-2); EOSINOPHILS 0.8 % (0-7); HEMATOCRIT 30.2 % (36.0-48.0); HEMOGLOBIN 9.3 g/dL (12-16); IMMATURE GRANULOCYTES 0.2 % (0-5); LYMPHOCYTES 19.5 % (15-50); MCH 31.7 pg (26.0-34.0); MCHC 30.8 g/dL (31.0-37.0); MCV 103.1 fL (80.0-100.0); MEAN PLATELET VOLUME 10.5 fL (7.4-10.4); MONOCYTES 11.6 % (2-11); NEUTROPHILS 67.1 % (40-80); PLATELET COUNT 215 10x3/uL (130-400); RBC 2.93 10x6/uL (4.00-5.40); RDW 15.9 % (11.5-14.5); WBC 6.3 10x3/uL (4.8-10.8)
[2017-05-14 05:42] LABS: CARBON DIOXIDE 20.3 mmol/L (21.0-32.0); CHOL - HDL RATIO 5.8 ratio (2.3-4.1); CREATININE - SERUM 7.8 mg/dL (0.6-1.3); LDL-HDL RATIO 3.6 ratio (1.5-3.5); PHOSPHOROUS 8.5 mg/dL (2.5-4.9)
[2017-05-14 05:54] LABS: ANION GAP 25.2 mmol/L (8-16); POTASSIUM - SERUM 5.5 mmol/L (3.5-5.1)
[2017-05-14 05:55] LABS: CALCIUM 6.2 mg/dL (8.5-10.1)
--- NOTE | 2017-05-14 06:30 | NUR ---
CRITICAL CALCIUM CALLED FROM AM LAB DRAW OF 6.2. HAD LAB RUN ALBUMIN, RESULTED 2.5, CORRECTED CALCIUM LEVEL IS 7.4. WILL CALL LAB RESULT TO PCP.
--- NOTE | 2017-05-14 10:42 | NUR ---
TELEMETRY CAF. TAKEN TO DIALYSIS BY BED. WILL CONT. PLAN OF CARE.
--- NOTE | 2017-05-14 11:19 | NUR ---
CAME TO PERFORM MRI BRAIN BUT PATIENT IN DIALYSIS. WILL CALL BACK IN A FEW HOURS TO RE-ASSESS IF MRI CAN BE DONE.
--- NOTE | 2017-05-14 11:45 | NUR ---
ARRIVED TO UNIT FROM DIALYSIS AT THIS TIME. PT CONFUSED AND LETHARGIC AND NOT ANSWERING QUESTIONS APPROPIATELY. BED SATURATED WITH BLOOD FROM GRAPH SITE. AREA NOTED TO BE CLOTTED OFF AND DOES NOT CURRENTLY APPEAR TO BE BLEEDING. 2U PRBC ORDERED EMERGENT BY RENAL MERCHANDISE SHOPPER. WILL CONTINUE PLAN OF CARE.
[2017-05-14 12:19] LABS: BASOPHILS 0.6 % (0-2); EOSINOPHILS 0.9 % (0-7); HEMATOCRIT 26.5 % (36.0-48.0); HEMOGLOBIN 8.4 g/dL (12-16); IMMATURE GRANULOCYTES 0.4 % (0-5); MCH 32.6 pg (26.0-34.0); MCHC 31.7 g/dL (31.0-37.0); MCV 102.7 fL (80.0-100.0); MEAN PLATELET VOLUME 10.5 fL (7.4-10.4); MONOCYTES 13.2 % (2-11); NEUTROPHILS 63.9 % (40-80); PLATELET COUNT 204 10x3/uL (130-400); RBC 2.58 10x6/uL (4.00-5.40); RDW 15.8 % (11.5-14.5)
--- NOTE | 2017-05-14 13:43 | NUR ---
NO ACUTE DISTRESS NOTED. LYING IN BED. LEVOFED TITRATED TO ORDER. WILL CONTINUE PLAN OF CARE.
--- NOTE | 2017-05-14 14:20 | NUR ---
PTS DAUGHTER CHERRY AT BEDSIDE. UPDATE GIVEN. NO ACUTE DISTRESS NOTED. WILL CONTINUE PLAN OF CARE.
--- NOTE | 2017-05-14 14:53 | NUR ---
CALLED ABOUT DOING MRI ON PATIENT, UNABLE TO DO AT THIS TIME DUE TO PATIENT MOVED TO ICU AND ON LEVOFED. WILL CHECK IN AM.
--- NOTE | 2017-05-14 17:39 | NUR ---
UP IN BED AWAKE AT THIS TIME. NO ACUTE DISTRESS NOTED. NO BLEEDING NOTED TO GRAFT SITE. WILL CONTINUE PLAN OF CARE.
--- NOTE | 2017-05-14 18:02 | NUR ---
INCONTINENT BOWEL MOVEMENT NOTED AT THIS TIME, SMALL LIQUID. LINEN CHANGE PROVIDED VIA TOTAL X 2 PERSON ASSIST. NO ACUTE DISTRESS NOTED. WILL CONTINUE PLAN OF CARE.
[2017-05-14 18:52] LABS: BASOPHILS 0.6 % (0-2); EOSINOPHILS 1.2 % (0-7); HEMATOCRIT 35.3 % (36.0-48.0); HEMOGLOBIN 11.2 g/dL (12-16); IMMATURE GRANULOCYTES 0.2 % (0-5); LYMPHOCYTES 16.9 % (15-50); MCH 31.2 pg (26.0-34.0); MCHC 31.7 g/dL (31.0-37.0); MCV 98.3 fL (80.0-100.0); MEAN PLATELET VOLUME 10.4 fL (7.4-10.4); MONOCYTES 17.5 % (2-11); NEUTROPHILS 63.6 % (40-80); PLATELET COUNT 210 10x3/uL (130-400); RBC 3.59 10x6/uL (4.00-5.40); RDW 19.6 % (11.5-14.5); WBC 8.5 10x3/uL (4.8-10.8)
[2017-05-14 19:05] LABS: ALBUMIN 2.7 g/dL (3.4-5.0); ANION GAP 26.6 mmol/L (8-16); BILIRUBIN - TOTAL 1.02 mg/dL (0.2-1.3); CARBON DIOXIDE 18.3 mmol/L (21.0-32.0); POTASSIUM - SERUM 4.9 mmol/L (3.5-5.1); PROTEIN - SERUM 6.4 g/dL (6.4-8.2)
[2017-05-14 19:17] LABS: CALCIUM 6.3 mg/dL (8.5-10.1)
--- NOTE | 2017-05-14 19:36 | NUR ---
LAB RESULTS REVIEWED WITH DR WASHBURN, ORDERS RECEIVED.
--- NOTE | 2017-05-14 20:10 | NUR ---
NO VISITORS PRESENT AT THIS TIME, PT REMAINS LETHARGIC-ANSWERS QUESTIONS ONLY IN GROANS AND MOANS.
--- NOTE | 2017-05-14 23:15 | NUR ---
REASSESSMENT PER FLOWSHEET, PT NOTED TO BE ABLE REPOSITION SELF, NO FURTHER S/S OF BLEEDING FROM RT ARM FISTULA. WILL CONT POC
[2017-05-15] VITALS (69 sets, daily range): BP systolic 83–122; BP diastolic 35–83
--- NOTE | 2017-05-15 02:40 | NUR ---
PT RESTING IN BED WITH EYES CLOSED, HR ATRIAL FIB ON MONITOR IN 90'S-LOW 100'S, UNDERSTOOD PT TO INDICATE THAT SHE WAS COLD-WARM BLANKET PROVIDED.
--- NOTE | 2017-05-15 03:10 | NUR ---
PT RESTING IN BED WITH EYES CLOSED, VSS, CONT TO MONITOR.
--- NOTE | 2017-05-15 05:30 | NUR ---
NO VISITORS PRESENT AT THIS TIME, PT RESTING WITH EYES CLOSED, VS
[2017-05-15 05:38] LABS: BASOPHILS 0.6 % (0-2); EOSINOPHILS 1.4 % (0-7); HEMOGLOBIN 10.5 g/dL (12-16); IMMATURE GRANULOCYTES 0.3 % (0-5); LYMPHOCYTES 24.5 % (15-50); MCH 30.5 pg (26.0-34.0); MCHC 31.8 g/dL (31.0-37.0); MEAN PLATELET VOLUME 10.3 fL (7.4-10.4); MONOCYTES 13.3 % (2-11); NEUTROPHILS 59.9 % (40-80); PLATELET COUNT 192 10x3/uL (130-400); RBC 3.44 10x6/uL (4.00-5.40); RDW 19.5 % (11.5-14.5)
[2017-05-15 05:44] LABS: MCV 95.9 fL (80.0-100.0)
[2017-05-15 05:49] LABS: APTT 32.3 SECONDS (22.8-39.4); INR 1.57 (0.85-1.17); PROTIME 18.3 SECONDS (11.6-15.0)
[2017-05-15 06:05] LABS: ALBUMIN 2.4 g/dL (3.4-5.0); ANION GAP 23.5 mmol/L (8-16); BILIRUBIN - TOTAL 0.8 mg/dL (0.2-1.3); CARBON DIOXIDE 19.3 mmol/L (21.0-32.0); CREATININE - SERUM 8.4 mg/dL (0.6-1.3); POTASSIUM - SERUM 4.8 mmol/L (3.5-5.1); PROTEIN - SERUM 6.1 g/dL (6.4-8.2)
[2017-05-15 06:08] LABS: CALCIUM 6.3 mg/dL (8.5-10.1)
--- NOTE | 2017-05-15 08:24 | NUR ---
LYING IN BED RESTING AT THIS TIME. RESPIRATIONS STEADY AND UNLABORED. NO ACUTE DISTRESS NOTED. AWAKENS EASILY WHEN SPOKEN TO. WILL CONTINUE PLAN OF CARE.
--- NOTE | 2017-05-15 10:23 | NUR ---
UP IN BED AWAKE AT THIS TIME. DENEIS ANY NEEDS. NO ACUTE DISTRESS NOTED. WILL CONTINUE PLAN OF CARE.
--- NOTE | 2017-05-15 12:23 | NUR ---
UP IN BED FEEDING SELF LUNCH AT THIS TIME VIA SET UP ASSIST. NO ACUTE DISTRESS NOTED. WILL CONTINUE PLAN OF CARE.
--- NOTE | 2017-05-15 13:04 | NUR ---
TOTAL LINEN CHANGE PROVIDED AT THIS TIME. OLD LINENS WRINKLY. NO ACUTE DISTRESS NOTED. DRESSING CHANGE PERFORMED TO BUTTOCKS. DR WASHBURN NOTIFIED OF WOUND AND DRESSING PLACED WELL WOUND CONSULT PLACED. NO NEW ORDERS. NO ACUTE DISTRESS NOTED. WILL CONTINUE PLAN OF CARE.
--- NOTE | 2017-05-15 15:08 | NUR ---
LYING IN BED RESTING AT THIS TIME. NO ACUTE DISTRESS NOTED. RESPIRATIONS STEADY AND UNLABORED. ABLE TO STATE NEEDS. WILL CONTINUE PLAN OF CARE.
--- NOTE | 2017-05-15 17:07 | NUR ---
UP IN BED EATING SUPPER WITH SETU UP ASSIST. DENIES ANY NEEDS. NO ACUTE DISTRESS NOTED. WILL CONTINUE PLAN OF CARE.
--- NOTE | 2017-05-15 18:00 | NUR ---
AIR MATTRESS OVERLAY PLACED AT THIS TIME PER ORDERS.
--- NOTE | 2017-05-15 19:31 | NUR ---
REPORT RECIEVED. ASSESSMENT COMPLETE PER FLOW SHEET. VSS. NO NEW CHANGES AT THIS TIME. PT SLEEPING COMFRTABLY. REPOSITIONED ON L SIDE. WILL CONTINUE TO MONITOR
--- NOTE | 2017-05-15 20:20 | NUR ---
FAMILY AT BEDSIDE. GIVEN UPDATE.
--- NOTE | 2017-05-15 21:30 | NUR ---
2100 MEDS ADM WIHTOUT DIFFICULTY. WILL CONTINUE TO MONITOR
--- NOTE | 2017-05-15 23:42 | NUR ---
REASSESSMENT COMPLETE PER FLOW SHEET. VSS. NO NEW CHANGES. WILL CONTINUE TO MONITOR
[2017-05-16] VITALS (25 sets, daily range): BP systolic 95–149; BP diastolic 46–123
--- NOTE | 2017-05-16 01:25 | NUR ---
REPOSITIONED FOR COMFORT, WILL CON'T TO MONITOR
--- NOTE | 2017-05-16 03:26 | NUR ---
REASSESSMENT COMPLETE, NO CHANGES NOTED, PT RESTING AT THIS TIME, REPOSITIONED FOR COMFORT, WILL CON'T TO MONITOR
[2017-05-16 04:34] LABS: BASOPHILS 0.5 % (0-2); EOSINOPHILS 2.1 % (0-7); HEMATOCRIT 32.6 % (36.0-48.0); HEMOGLOBIN 10.3 g/dL (12-16); IMMATURE GRANULOCYTES 0.2 % (0-5); LYMPHOCYTES 15.2 % (15-50); MCH 30.7 pg (26.0-34.0); MCHC 31.6 g/dL (31.0-37.0); MEAN PLATELET VOLUME 10.3 fL (7.4-10.4); MONOCYTES 10.8 % (2-11); NEUTROPHILS 71.2 % (40-80); PLATELET COUNT 199 10x3/uL (130-400); RBC 3.36 10x6/uL (4.00-5.40); WBC 8.4 10x3/uL (4.8-10.8)
[2017-05-16 04:50] LABS: ANION GAP 22.1 mmol/L (8-16); CARBON DIOXIDE 20.9 mmol/L (21.0-32.0); CREATININE - SERUM 9.1 mg/dL (0.6-1.3); VANCOMYCIN - RANDOM 10.7 ug/mL (10.0-20.0)
[2017-05-16 04:51] LABS: CALCIUM 6.3 mg/dL (8.5-10.1); PHOSPHOROUS 10.8 mg/dL (2.5-4.9)
--- NOTE | 2017-05-16 05:00 | NUR ---
LG BM AT THIS TIME, COMPLETE BATH AND LINEN CHANGE, PT TOLERATED WELL
--- NOTE | 2017-05-16 07:00 | NUR ---
REPORT RECIEVED FROM OFF GOING NURSE. SEE ASSESSMENT PER FLOW SHEET. VSS. PT BREATHING NORMAL AND UNLABOERD. PT WILL FOLLOW COMMANDS BUT SHE HAS GARBLED SPEACH AND MAKE INCOMPREHENSIBLE WORD. RIGHT SIDED PARESIS NOTED. HX OF CVA. NO FAMILY AT BED SIDE. PT BREAKFAST TRAY PROVIDED. TRAY SET UP ON PTS LEFT SIDE. HOB ELEVATED AND PT FED HER SELF EATING 100% OF HER MEAL WITH HER LEFT ARM. VSS. NO S/SX OF DISTRESS/DISCOMFORT NOTED. CALL LIGHT IN REACH. WILL CONT POC
--- NOTE | 2017-05-16 08:00 | NUR ---
SPOKE WITH DR WASHBURN. ASKING FOR PERMISSION TO ACCESS HEMOSPLIT. RECIEVED PRESSISION TO USE HEMOSPLIT AFTER DIALYSIS.
--- NOTE | 2017-05-16 09:50 | NUR ---
DIALYSIS NURSE AT PTS BEDSIDE.
--- NOTE | 2017-05-16 10:16 | NUR ---
Nutrition follow-up: Diet: Renal ADA consistent CHO PO Intake ~75% of most meals Labs reviewed; PO4 elevated, Phoslo started with meals Wt: 214# PO intake good at this time. RDN following.
--- NOTE | 2017-05-16 11:34 | NUR ---
* Is the patient Alert and Oriented? Yes 0 * How many steps to enter\exit or inside your home? Ramp 0 * PCP Dr. Marte 0 * Pharmacy [facility] [address] 0 * Preadmission Environment Home with Family 0 * ADLs Partial Dependent 0 * Partial ADLs (Assistance needed) Ambulation Bathing Dressing Medication Management Transfers 0 * Equipment Hospital Bed Nebulizer Other Oxygen Wheelchair 0 * Other Equipment Transfer Chair 0 * List name and contact numbers for known caregivers / representatives who currently or will assist patient after discharge: POLurdes/Daughter - Georgiana Covarrubias [phone] 0 * Community resources currently utilized Home Health 0 * Please name any agencies selected above. [facility] 0 * Additional services required to return to the preadmission environment? No 0 * Can the patient safely return to the preadmission environment? Yes 0 * Has this patient been hospitalized within the prior 30 days at any hospital? Yes Patient Name: MITZI SAGASTUME Admission Status: ER Accout number: [id number] Admission Date: 05-08-2017 : 1940 Admission Diagnosis:SHORTNESS OF BREATH Attending: SAMUEL BURNETT Current LOS: 8 Primary Insurance: [employer] PPO [facility] Discharge Planning Comments: CM spoke with daughterGeorgiana (ANGEL) via telephone. She states patient lives with her other daughter and son. She states she requires assistance with all ADL's. She primarily uses a WC for mobility. She wears O2 PRN. She has a nebulizer but does not use it. She goes to at [facility] on MWF @ 1100. Family provides transportation to . She has had home health services in the past with [facility], but is currently not on service. Spoke with Jessica at [facility] - she states they will not accept patient back on their service due to noncompliance. Patient plans to return home at discharge. CM will follow & assist as needed. Neuropathologist: Macie Garibay
--- NOTE | 2017-05-16 12:50 | NUR ---
DIALYSIS NURSE COMLETE WITH TX. 3.5L PULLED FROM PT. VSS. PT HAS NO S/SX OF DISTRESS/DISCOMFORT NOTED. BREATHING NORMAL AN DUNLABORED. WILL CONT POC
--- NOTE | 2017-05-16 14:30 | NUR ---
DRESSING TO COCCYX CHANGED. SEE MORE DETAILS IN FLOW SHEET. PT TOLERATED DRESSING CHANGE WELL. CALL LIGHT IN REACH. WILL CONT POC
--- NOTE | 2017-05-16 15:00 | NUR ---
PT RESTING QUIETLY IN BED WITH NO S/SX OF DISTRESS/DISCOMFORT NOTED. CALL LIGHT IN REACH. WILL CONT POC
--- NOTE | 2017-05-16 16:00 | NUR ---
WOUND NURSE AT BEDSIDE CHANGEING DRESSING TO RIGHT UPPER ARM.
--- NOTE | 2017-05-16 16:15 | NUR ---
FAMILY MEMBER AT BED SIDE. CONCERNED ABOUT PTS EXPRESSIVE APHAGIA. EXPLAINED THAT HER HEAD CT RESULTS WERE NEGATIVE BUT SHE IS TO HAVE A MRI TODAY.
--- NOTE | 2017-05-16 16:19 | NUR ---
MRI CALLED AND ASKED ABOUT PTS CONDITION WHICH THEY WERE UPDATED. THEY STATED THEY HAVE 4-5 PTS IN FRONT OF THEM AND THAT SHE IS IN LINE.
--- NOTE | 2017-05-16 16:30 | NUR ---
MRI AT BED SIDE. TRANSFERED PT TO A GURNY BED. PORTABLE O2 AT 2L ON PT. VSS. 0 NEEDS AT THIS TIME. PT BREATHING NORMALLY AND UNLABORED.
--- NOTE | 2017-05-16 17:00 | NUR ---
PT BACK IN ICU. NEW BED LINES CHANGED AND BED BATH GIVEN. PLACED BACK ON MONITORS. VSS. BREATHING NORMAL AND UNLABORED. MEAL TRAY PROVED ON PTS LEFT SIDE WHERE SHE ATE 80% OF HER MEAL. CALL LIGHT IN REACH. WILL CONT POC.
--- NOTE | 2017-05-16 18:40 | NUR ---
DR NICHOLAS CALLED R/T MRI RESULTS. MULTIPLE ACUTE INFARTS IN THE FRONTAL LOBE ALL LESS THAT 1CM. EITHER WATER TUMBLING DISABUTION OR INBULIC WATER SHED PHENOMENON. DR WASHBURN PAGED.
--- NOTE | 2017-05-16 18:45 | NUR ---
REPORT GIVEN TO ON COMING NURSE. PT BREATHING NORMAL AND UNLABORED. CALL LIGHT IN REACH. WILL CONT POC
--- NOTE | 2017-05-16 21:00 | NUR ---
FAMILY AT BEDSIDE, NO NEEDS NOTED
--- NOTE | 2017-05-16 23:11 | NUR ---
REASSESSMENT COMPLETE, NO CHANGES NOTED, PT REPOSITIONED FOR COMFORT, WILL CON'T TO MONITOR
[2017-05-17] VITALS (12 sets, daily range): BP systolic 99–121; BP diastolic 55–79
--- NOTE | 2017-05-17 01:00 | NUR ---
REPOSITONED FOR COMFORT, VSS, CALL LIGHT IN REACH
--- NOTE | 2017-05-17 03:00 | NUR ---
REASSESSMENT COMPELTE, NO CHANGES NOTED, WILL CON'T TO MONITOR
[2017-05-17 04:36] LABS: BASOPHILS 0.6 % (0-2); EOSINOPHILS 2.4 % (0-7); HEMATOCRIT 34.2 % (36.0-48.0); HEMOGLOBIN 10.8 g/dL (12-16); IMMATURE GRANULOCYTES 0.1 % (0-5); LYMPHOCYTES 13.6 % (15-50); MCH 30.8 pg (26.0-34.0); MCHC 31.6 g/dL (31.0-37.0); MCV 97.4 fL (80.0-100.0); MEAN PLATELET VOLUME 10.6 fL (7.4-10.4); MONOCYTES 12.7 % (2-11); NEUTROPHILS 70.6 % (40-80); RBC 3.51 10x6/uL (4.00-5.40); RDW 18.9 % (11.5-14.5); WBC 7.2 10x3/uL (4.8-10.8)
[2017-05-17 04:37] LABS: PLATELET COUNT 243 10x3/uL (130-400)
[2017-05-17 04:50] LABS: CARBON DIOXIDE 25.5 mmol/L (21.0-32.0)
[2017-05-17 04:55] LABS: ANION GAP 17.4 mmol/L (8-16); CREATININE - SERUM 6.2 mg/dL (0.6-1.3); POTASSIUM - SERUM 3.9 mmol/L (3.5-5.1)
[2017-05-17 04:56] LABS: CALCIUM 6.7 mg/dL (8.5-10.1)
--- NOTE | 2017-05-17 05:00 | NUR ---
REPOSITIONED FOR COMFORT, WILL CON'T TO MONITOR
--- NOTE | 2017-05-17 07:00 | NUR ---
REPORT RECIEVED FROM OFF GOING RN. SEE ASSESSMENT IN FLOW SHEET. PT ALERT AND ORIENTED WITH CLEAR SPEECH. SHE STATED "I REALLY DONT REMEMBER WHY I COULDNT TALK YESTERDAY. IT WAS ALL A BLUR" VSS. SPOKE WITH DR WASHBURN. NEW ORDERS TO TRANSFER PT TO [facility] TODAY. PT ABLE TO FEED HER SELF BREAKFAST. WITH HER LEFT ARM. RIGHT ARM VERY WEAK. HAS GROOS MOTOR SKILLS BUT LACKS FINE MOTOR SKILLS. DENIES PAIN AT THIS TIME. REPOSITIONED FOR COMFORT. CALL LIGHT IN REACH. WILL CONT POC
--- NOTE | 2017-05-17 11:00 | NUR ---
STILL WAITING FOR MED2 ROOM. PT REPOSITIONED Q 2 HOURS FOR COMFORT AND SKIN INTEGRITY. BANDAGE TO COCCYX C/D/I. DENNIES PAINS. CALL LIGHT IN REACH. WILL CONT POC
--- NOTE | 2017-05-17 15:00 | NUR ---
WAITING FOR MED2 BED TO BE OPEN FOR TRANFSER. PT ALERT AND ORIENTED WATCHING TV. ABLE TO VERBALIZED NEEDS WITH CLEAR SPEECH. DENIES PAIN. VSS. REPOSITONED Q 2 HOURS FOR COMFORT AND SKIN INTEGRITY. DRESSING TO COCCYX C/D/I. CALL LIGHT IN REACH. WILL CONT POC
--- NOTE | 2017-05-17 18:00 | NUR ---
RECEIVED PT TO ROOM 2109 VIA BED, PT A/O X4. ORIENTED PT TO ROOM AND CALL LIGHT. PT INFUSING NS AT KVO TO RT CHEST HEMISPLIT. RESP EVEN AND UNLABORED. PT DENIES ANY NEEDS AT THIS TIME. CALL LIGHT IN REACH, NAD NOTED, WILL CONT PLAN OF CARE.
--- NOTE | 2017-05-17 18:03 | NUR ---
ALL PT BELONGINS ACCOUNTED FOR. PT TRANSFERED VIA BED TO ROOM 2109. REPORT CALLED INTO BRANDEE FROM MED2. VSS. BREATHING NORMAL AND UNLABORED. WILL CONT POC
--- NOTE | 2017-05-17 20:06 | NUR ---
PT IN BED. COMPLAINS THAT THE BED IS NOT COMFORTABLE. PT IS ON 1ST STEP OVERLAY. PROVIDED PILLOWS FOR COMFORT. DENIES FURTHER NEEDS AT THIS TIME.
[2017-05-18] VITALS: BP 126/75
--- NOTE | 2017-05-18 03:00 | NUR ---
PT LYING IN BED, RESTING COMFORTABLY, ABSTRACT MAKER ANAI AND ONELIA SALDANA CHANGED PTS DRESSING TO BUTTOCK. PT IS ON A 1ST STEP OVERLAY MATTRESS, DENIES ANY NEEDS. CONTINUE TO MONITOR CLOSELY.
--- NOTE | 2017-05-18 03:49 | NUR ---
PT IN BED RESTING. EVEN AND UNLABORED RESPIRATIONS NOTED. WILL CONTINUE TO MONITOR
[2017-05-18 04:00] VITALS: BP 101/70
[2017-05-18 05:37] LABS: BASOPHILS 0.4 % (0-2); EOSINOPHILS 2.4 % (0-7); HEMATOCRIT 31.5 % (36.0-48.0); HEMOGLOBIN 9.9 g/dL (12-16); IMMATURE GRANULOCYTES 0.1 % (0-5); LYMPHOCYTES 16.5 % (15-50); MCH 30.7 pg (26.0-34.0); MCHC 31.4 g/dL (31.0-37.0); MCV 97.8 fL (80.0-100.0); MEAN PLATELET VOLUME 10.6 fL (7.4-10.4); MONOCYTES 15.5 % (2-11); NEUTROPHILS 65.1 % (40-80); PLATELET COUNT 242 10x3/uL (130-400); RBC 3.22 10x6/uL (4.00-5.40); RDW 18.5 % (11.5-14.5); WBC 7.1 10x3/uL (4.8-10.8)
[2017-05-18 06:08] LABS: ANION GAP 20.7 mmol/L (8-16); CARBON DIOXIDE 23.5 mmol/L (21.0-32.0); CREATININE - SERUM 7.2 mg/dL (0.6-1.3); POTASSIUM - SERUM 4.2 mmol/L (3.5-5.1)
[2017-05-18 06:19] LABS: CALCIUM 6.9 mg/dL (8.5-10.1)
--- NOTE | 2017-05-18 08:00 | NUR ---
AM ROUNDS COMPLETED. INTRODUCED MYSELF TO PT PRIMARY RN FOR TODAYS SHIFT. PT FAMILAR WITH ME HER NURSE FROM PREVIOUS ADMISSIONS. PT A&O SITTING UP IN BED UNCOMFORTABLE. REPOSITIONED PT UP IN BED. PTS LE ARE VERY DRY/CRACKING/FLAKEY PROVIDED PT WITH ALOE BARRIER MOISTURE SPRAY AND RUBBED INTO HER FEET AND LEGS, PT REFUSED NONSLIP SOCKS TO WEAR. PTS R.ARM VERY SWOLLEN WITH MULTIPLE SCABS/CUTS GENERALIZED, ELEVATED ARM ON A PILLOW AND ENCOURAGED HER TO KEEP IT UP. L.ARM VERY DRY PROVIDED MOISTURE AND RUBBED IT IN. PT VOICED THANKS AND STATED IT FELT BETTER. PT WILL HAVE DIALYSIS LATER TODAY VIA R.CHEST HEMESPLIT. PT DENIES ANY CURRENT PAIN OR NEEDS. CL IN REACH, BED IN LOWEST, SIDE RAILS X2. WILL CPOC.
--- NOTE | 2017-05-18 10:15 | NUR ---
PT LEAVING FOR DIALYSIS VIA BED AT THIS TIME. CENTRAL LINE DRSG KIT SENT ALONG AND WILL BE CHANGED USING STERILE TECHNIQUE. VANC SENT WITH WELL TO INFUSE BEHIND DIALYSIS. PT VOICED THANKS AND DENIES ANY CURRENT NEEDS. WILL CPOC.
[2017-05-18 10:31] VITALS: BP 117/61
--- NOTE | 2017-05-18 12:31 | NUR ---
PT NOW BACK FROM DIALYSIS. A&O RESTING QUIETLY. PT STATES IT WENT OKAY. DENIES ANY CURRENT PAIN OR NEEDS. CL IN REACH. WILL CPOC.
--- NOTE | 2017-05-18 14:48 | NUR ---
REQUESTED IVP ANBX FROM PHARMACY UNABLE TO GIVE NOW R/T UNAVAILABLE. WILL PROVIDE WHEN AVAILABLE.
--- NOTE | 2017-05-18 14:55 | NUR ---
CALLED MOUNIKA BRADLEY FOR RENAL AND DISCUSSED MY CONCERNS WITH PTS HEART RATE CONSTANTLY BEING UNCONTROLLED A.FIB. PT TAKES AMIODARONE FOR IT AND IS SUPPOSE TO BE ON COREG BUT ITS BEEN ON HOLD FOR LOW BP HOWEVER PT CAN TAKE HER MIDORINE TO HELP WITH THAT AND COREG WITH HELP CONTROL HR MORE. RAISING CONCERN FOR PT SHE ALSO REFUSES HER ASA WITH HER UNCONT.A.FIB. PER BRIDGE CREW MEMBER WILL RESTART COREG AND SEE IF IT HELPS CONTROL HR.
--- NOTE | 2017-05-18 16:28 | NUR ---
STILL UNABLE TO GIVE IVP ANBX. CALLED PHARMACY AGAIN AND WILL HAVE MEDICATION RETIMED.
[2017-05-18 17:10] VITALS: BP 107/46
--- NOTE | 2017-05-18 19:32 | NUR ---
PT IN BED RESTING QUIELTY. BREATHING EVEN AND UNLABORED. BED IN LOW POSITION, CALL LIGHT WITHIN REACH. WILL CTM.
[2017-05-18 20:27] VITALS: BP 108/61
--- NOTE | 2017-05-18 23:31 | NUR ---
PT BECAME AGITATED AND REFUSED TO BE ON HER FIRST STEP OVERLAY MATTRESS ANY LONGER. IT WAS REMOVED PER PT REQUEST.
[2017-05-19 00:07] VITALS: BP 123/67
--- NOTE | 2017-05-19 04:17 | NUR ---
PT REFUSES TO HAVE FSBS TAKEN. STATES THAT SHE "IS NOT A DIABETIC AND DOES NOT WANT TO BE STUCK FOR NO REASON."
[2017-05-19 05:13] VITALS: BP 105/67
[2017-05-19 06:09] LABS: BASOPHILS 0.7 % (0-2); EOSINOPHILS 1.3 % (0-7); HEMATOCRIT 34.1 % (36.0-48.0); HEMOGLOBIN 10.6 g/dL (12-16); IMMATURE GRANULOCYTES 0.1 % (0-5); LYMPHOCYTES 19.2 % (15-50); MCH 30.5 pg (26.0-34.0); MCHC 31.1 g/dL (31.0-37.0); MEAN PLATELET VOLUME 10.6 fL (7.4-10.4); MONOCYTES 12.5 % (2-11); NEUTROPHILS 66.2 % (40-80); PLATELET COUNT 264 10x3/uL (130-400); RBC 3.48 10x6/uL (4.00-5.40); RDW 18.3 % (11.5-14.5); WBC 7.2 10x3/uL (4.8-10.8)
[2017-05-19 06:58] LABS: ANION GAP 20.8 mmol/L (8-16); CARBON DIOXIDE 25.2 mmol/L (21.0-32.0); CREATININE - SERUM 6.2 mg/dL (0.6-1.3); PHOSPHOROUS 7.6 mg/dL (2.5-4.9); VANCOMYCIN - RANDOM 22.7 ug/mL (10.0-20.0)
--- NOTE | 2017-05-19 08:02 | NUR ---
AM ROUNDS COMPLETED. INTRODUCED MYSELF TO PT PRIMARY RN FOR TODAYS SHIFT. PT A&O SITTING UP IN BED RESTING QUIETLY AND STATES "IM JUST READY TO GO HOME" DISCUSSED DISEASE PROCESS AND CURRENT PLAN OF CARE WITH PATIENT AND SHE VERBALIZED UNDERSTANDING. SHIFT ASSESSMENT COMPLETED AND NO CHANGES NOTED FROM YESTERDAYS ASSESSMENT HOWEVER SKIN IS LESS DRY WITH USE OF MOISTURIZER WILL CONTINUE TO APPLY IT NEEDED. PT VOICED THANKS AND DENIES ANY CURRENT PAIN OR NEEDS AT THIS TIME. CL IN REACH, BED IN LOWEST, SIDE RAILS X2 AND BUILT IN BED ALARM ON. WILL CPOC.
[2017-05-19 08:40] VITALS: BP 114/60
--- NOTE | 2017-05-19 10:20 | NUR ---
ASSISTED PT ONTO BEDPAN FOR BOWEL MOVEMENT. CLEANSED PTS COCCYX WOUND THAT IS OPEN AND TRIED TO APPLY ORDERED DRSG HOWEVER PT REFUSED AND STATES SHE DOESNT WANT ANYTHING ON IT. I TRIED TO DO TEACHING BUT SHE WASNT INTERESTED, PLACED GUAZE OVER IT ANYWAYS JUST TO KEEP IT SLIGHTLY COVERED AND PT AGREED BUT REFUSED TAPE OR ACTUAL DRSG. PROVIDED PT WITH SKIN CARE AND LOTION ALL OVER R/T VERY DRY SKIN. PTS HEELS ARE SLIGHTLY BOGGY AND RED AND STAY IN SAME POSITION ALMOST ALL DAY AND I WANTED TO BRIDGE HEELS HOWEVER PT REFUSED AND SAID "NO THEY ARE FINE JUST LEAVE THEM ALONE" NO FURTHER NEEDS AT THIS TIME. WILL CTM.
--- NOTE | 2017-05-19 12:46 | NUR ---
Nutrition follow-up: Diet: renal ada PO intake ~80% average of last 6 meals Labs reviewed +BM Wt: 205# PO intake good at this time RDN following.
[2017-05-19 12:58] VITALS: BP 108/55
--- NOTE | 2017-05-19 15:12 | NUR ---
PT RESTING QUIETLY IN BED WITH EYES CLOSED. RR NONLABORED ON RA. NO S/S OF DISRESS OR ANY NEEDS AT THIS TIME. WILL CTM.
[2017-05-19 16:30] VITALS: BP 91/50
--- NOTE | 2017-05-19 17:33 | NUR ---
REPOSITIONED PT UP IN BED FOR COMFORT. PT VOICED THANKS. PT RESTING QUIETLY AND STATES SHE HAS HAD AN "ALRIGHT" DAY. PT DENIES ANY CURRENT PAIN OR FURTHER NEED AT THIS TIME. CL IN REACH, BED IN LOWEST, SIDE RAILS X2. WILL CPOC.
--- NOTE | 2017-05-19 19:34 | NUR ---
PT IN BED RESTING QUIELTY. BED IN LOW POSITION, CALL LIGHT WITHIN REACH. WILL CTM.
[2017-05-19 22:08] VITALS: BP 101/52
[2017-05-20 05:06] VITALS: BP 109/47
[2017-05-20 05:12] LABS: BASOPHILS 0.9 % (0-2); EOSINOPHILS 3.5 % (0-7); HEMATOCRIT 34.2 % (36.0-48.0); HEMOGLOBIN 10.6 g/dL (12-16); IMMATURE GRANULOCYTES 0.3 % (0-5); LYMPHOCYTES 18.9 % (15-50); MCH 30.5 pg (26.0-34.0); MCV 98.3 fL (80.0-100.0); MEAN PLATELET VOLUME 10.6 fL (7.4-10.4); MONOCYTES 12.4 % (2-11); PLATELET COUNT 258 10x3/uL (130-400); RBC 3.48 10x6/uL (4.00-5.40); RDW 17.7 % (11.5-14.5); WBC 6.9 10x3/uL (4.8-10.8)
[2017-05-20 05:35] LABS: ANION GAP 21.3 mmol/L (8-16); CALCIUM 7.4 mg/dL (8.5-10.1); CARBON DIOXIDE 23.9 mmol/L (21.0-32.0); CREATININE - SERUM 7.5 mg/dL (0.6-1.3); PHOSPHOROUS 9.5 mg/dL (2.5-4.9); POTASSIUM - SERUM 4.2 mmol/L (3.5-5.1)
--- NOTE | 2017-05-20 07:14 | NUR ---
PT IN BED, DENIES ANY NEEDS AT THIS TIME. RESP EVEN AND UNLABORED. CALLL LIGHT IN REACH, NAD NOTED, WILL CONTINUE PLAN OF CARE.
--- NOTE | 2017-05-20 08:13 | NUR ---
AM MEDS GIVEN AT THIS TIME PT IN BED EATING BREAKFAST, DENIES ANY NEEDS AT THIS TIME. CALL LIGHT IN REACH, VICENTA HORNE, WILL CONTINUE PLAN OF CARE.
--- NOTE | 2017-05-20 08:30 | NUR ---
PT TRANSFERED TO DIALYSIS VIA BED, NAD NOTED.
[2017-05-20 10:10] VITALS: BP 108/55
--- NOTE | 2017-05-20 12:40 | NUR ---
PT TRANSFERED BACK TO ROOM 2109 VIA BED, NAD NOTED.
[2017-05-20 17:14] VITALS: BP 115/46
--- NOTE | 2017-05-20 19:44 | NUR ---
PT IN BED RESTING QUIELTY. BREATHING EVEN AND UNLABORED. DENIES ANY NEEDS AT THIS TIME. BED IN LOW POSITION, CALL LIGHT WITHIN REACH. WILL CTM.
[2017-05-20 20:00] VITALS: BP 95/41
[2017-05-21] VITALS: BP 95/54
--- NOTE | 2017-05-21 01:39 | NUR ---
MEPILEX APPLIED TO PTS SORE ON BOTTOM. PT ALSO BEGAN BLEEDING A SCANT AMOUNT OF FRESH BRIGHT RED BLOOD FROM HER INCISION SITE ON HER RIGHT ARM WHILE BEING MOVED DURING BATH AND LINEN CHANGED. BLEEDING STOPPED. INCISION SITE CLEANED. NONADHERENT DRESSING APPLIED. WILL CTM.
[2017-05-21 04:00] VITALS: BP 96/50
[2017-05-21 04:53] LABS: BASOPHILS 0.8 % (0-2); EOSINOPHILS 3.8 % (0-7); HEMATOCRIT 33.6 % (36.0-48.0); HEMOGLOBIN 10.5 g/dL (12-16); IMMATURE GRANULOCYTES 0.1 % (0-5); LYMPHOCYTES 18.1 % (15-50); MCH 30.7 pg (26.0-34.0); MCHC 31.3 g/dL (31.0-37.0); MCV 98.2 fL (80.0-100.0); MEAN PLATELET VOLUME 10.8 fL (7.4-10.4); MONOCYTES 13.4 % (2-11); NEUTROPHILS 63.8 % (40-80); PLATELET COUNT 273 10x3/uL (130-400); RBC 3.42 10x6/uL (4.00-5.40); RDW 17.7 % (11.5-14.5); WBC 7.6 10x3/uL (4.8-10.8)
[2017-05-21 05:21] LABS: ANION GAP 18.5 mmol/L (8-16); CALCIUM 7.5 mg/dL (8.5-10.1); CARBON DIOXIDE 26.1 mmol/L (21.0-32.0); CREATININE - SERUM 5.2 mg/dL (0.6-1.3); PHOSPHOROUS 5.9 mg/dL (2.5-4.9); POTASSIUM - SERUM 3.6 mmol/L (3.5-5.1)
--- NOTE | 2017-05-21 07:15 | NUR ---
PT IN BED, ASKED TO BE REPOSITIONED IN BED. HELPED PT TO RESPOSITIONED. RESP EVEN AND UNLABORED. RT CHEST HEMOSPLIT HEP LOCK. PT DENIES ANY OTHER NEEDS AT THIS TIME. CALL LIGHT IN REACH, NAD NOTED, WILL CONTINUE PLAN OF CARE.
[2017-05-21 08:14] VITALS: BP 104/50
--- NOTE | 2017-05-21 08:27 | NUR ---
AM MEDS GIVEN AT THIS TIME. CALCIJEX GIVEN VIA BLUE PORT ON HEMISPLIT. THEN FLUSHED WITH 10CC OF NS AND HEP LOCKED WITH 1.9ML OF HEPARIN. PT IN BED, EATING BREAKFAST. DENIES ANY NEEDS AT THIS TIME. CALL LIGHT IN REACH, NAD NOTED, WILL CONTINUE TO MONITOR.
[2017-05-21 11:35] VITALS: BP 108/56
--- NOTE | 2017-05-21 12:02 | NUR ---
PT IN BED, WATCHING TV, DENIES ANY NEEDS, NAD NOTED, CALL LIGHT IN REACH.
--- NOTE | 2017-05-21 14:00 | NUR ---
CLEANED PT UP FROM INCONT EPISODE. PROVIDED DRESSING CHANGE TO SORE TO COCCYX. CLEANED SITE WITH WOUND OPHTHALMIC LENS INSPECTOR AND APPLIED DRESSING TO SITE. RESPOSITIONED PT IN BED, WITH OPERATIONS ASSISTANT'S HELP. PT DENIES ANY NEEDS AT THIS TIME. CALL LIGHT IN REACH, NAD NOTED, WILL CONTINUE PLAN OF CARE.
[2017-05-21 16:20] VITALS: BP 103/58
--- NOTE | 2017-05-21 16:43 | NUR ---
PT REFUSED TO TAKE HER PHOSLO, STATED " I AM SICK OF TAKING THOSE PILLS." DAUGHTER WALKED IN THE ROOM, EXPLAINED TO HER THAT DOCTORS ARE TRYING TO GET HER PLACE IN [facility], SO SHE CAN GET SOME STRENGTH. ASKED DAUGHTER IF PT WAS ALBE TO AMBULATE AT HOME BEFORE SHE WAS ADMITTED TO HOSPITAL. DAUGHTER STATED " YES SHE WAS, BUT I DONT THINK SHE CAN NOW, SHE IS TOO WEAK". PT DENIES ANY NEED AT THIS TIME. CALL LIGHT IN REACH, NAD NOTED.
--- NOTE | 2017-05-21 19:50 | NUR ---
RESUMED CARE OF PT, LYING IN BED WITH EYES CLOSED, RESPIRATIONS EVEN AND UNLABORED ON 2LPM VIA NC. 88 CAF ON TELEMETRY. CALL LIGHT IN REACH. WILL CONTINUE TO MONITOR. SEE NURSE ASSESSMENT.
[2017-05-21 20:00] VITALS: BP 122/49
[2017-05-22] VITALS: BP 113/43
[2017-05-22 04:00] VITALS: BP 109/51
[2017-05-22 06:20] LABS: BASOPHILS 0.9 % (0-2); EOSINOPHILS 3.5 % (0-7); HEMOGLOBIN 10.5 g/dL (12-16); IMMATURE GRANULOCYTES 0.2 % (0-5); LYMPHOCYTES 17.5 % (15-50); MCH 30.8 pg (26.0-34.0); MCHC 30.9 g/dL (31.0-37.0); MCV 99.7 fL (80.0-100.0); MEAN PLATELET VOLUME 10.5 fL (7.4-10.4); MONOCYTES 13.6 % (2-11); NEUTROPHILS 64.3 % (40-80); PLATELET COUNT 322 10x3/uL (130-400); RBC 3.41 10x6/uL (4.00-5.40); RDW 17.9 % (11.5-14.5); WBC 8.6 10x3/uL (4.8-10.8)
--- NOTE | 2017-05-22 06:22 | NUR ---
BED BATH AND LINENS CHANGED, CALL LIGHT IN REACH. AM MEDS PASSED.
[2017-05-22 06:32] LABS: ANION GAP 17.6 mmol/L (8-16); CALCIUM 7.5 mg/dL (8.5-10.1); CARBON DIOXIDE 26.1 mmol/L (21.0-32.0); POTASSIUM - SERUM 3.7 mmol/L (3.5-5.1)
[2017-05-22 06:33] LABS: PHOSPHOROUS 7.7 mg/dL (2.5-4.9)
--- NOTE | 2017-05-22 07:15 | NUR ---
PT IN BED, WATCHING TV, RESP EVEN AND UNLABORED. PT DENIES ANY NEEDS AT THIS TIME. RT CHEST HEMISPLIT HEP LOCK. CALL LIGHT IN REACH, NAD NOTED, WILL CONTINUE PLAN OF CARE.
[2017-05-22 08:05] VITALS: BP 128/89
--- NOTE | 2017-05-22 09:37 | NUR ---
AM MEDS GIVEN AT THIS TIME. REPOSITIONED PT IN BED, WITH FACILITIES MAINTENANCE TECHNICIAN'S HELP. PT DENIES ANY OTHER NEEDS AT THIS TIME. CALL LIGHT IN REACH, NAD NOTED, WILL CONTINUE PLAN OF CARE.
[2017-05-22] MEDS ORDERED: COREG6.25 MG PO (11:17)
[2017-05-22 11:34] VITALS: BP 125/50
--- NOTE | 2017-05-22 12:10 | NUR ---
CALLED PT'S DAUGHTER CHERRY, BUT GOT VOICEMAIL. WILL TRY TO CALL BACK AGAIN LATER TO LET HER KNOW ABOUT PT'S DISCHARGE ORDER.
--- NOTE | 2017-05-22 13:40 | NUR ---
PROVIDED VERBAL AND WRITTEN DISCHARGE TEACHING TO PT AND DAUGHTER, BOTH VERBALIZED UNDERSTANDING REGARDING TEACHING. FAMILY WILL PROVIDED TRANSPORTATION, SO SON WILL GO HOME AND GET WHEELCHAIR FOR PT. 1415- PT LEFT UNIT VIA WHEELCHAIR, ACCOMPANIED BY SON AND DAUGHTER, NAD NOTED.
== END 2017-05-22 14:16 | disposition home or self-care (01) | DRG 264 ==
LOC: D.ER 21:43 → D.M2 23:48 → D.ICU 23:48 → D.M2 05-10 17:59 → D.ICU 05-14 11:49 → D.M2 05-17 17:59
PROVIDERS: Family Medicine; Internal Medicine Nephrology; Surgery; ADMIT Internal Medicine Nephrology
PROC: 03170KF Bypass Right Brachial Artery to Lower Arm Vein with Nonautologous Tissue Substitute, Open Approach (ICD-10-PCS; principal; 2017-05-13 13:30)
DX: T82.590A Other mechanical complication of surgically created arteriovenous fistula, initial encounter (principal); J96.01 Acute respiratory failure with hypoxia; N18.6 End stage renal disease; I13.2 Hypertensive heart and chronic kidney disease with heart failure and with stage 5 chronic kidney disease, or end stage renal disease; I48.2 Chronic atrial fibrillation; I95.9 Hypotension, unspecified; D63.1 Anemia in chronic kidney disease; E11.22 Type 2 diabetes mellitus with diabetic chronic kidney disease; Z99.2 Dependence on renal dialysis; I50.9 Heart failure, unspecified; F03.90 Unspecified dementia, unspecified severity, without behavioral disturbance, psychotic disturbance, mood disturbance, and anxiety; Y83.8 Other surgical procedures as the cause of abnormal reaction of the patient, or of later complication, without mention of misadventure at the time of the procedure; L89.90 Pressure ulcer of unspecified site, unspecified stage; Z86.73 Personal history of transient ischemic attack (TIA), and cerebral infarction without residual deficits; E83.51 Hypocalcemia

== ENCOUNTER 2017-06-01 15:20 | Inpatient (IN) | payer MEDICARE, MEDICAID ==
[~2017-06-01] VITALS: Ht 162.6 cm; Wt 97.1 kg
--- NOTE | ~2017-06-01 | CN ---
PATIENT NAME:MITZI SAGASTUME MEDICAL RECORD: [id number] : 44 LOCATION:D. D.2127 ADMIT DATE: 06/02/17 ACCOUNT: [id number] CONSULTING PHYSICIAN: CLARK ANGELES MD REFERRING PHYSICIAN: SAMUEL BURNETT MD DATE OF CONSULTATION: 06/02/2017 HISTORY: A 76-year-old female with history of atrial fibrillation as well as chronic renal insufficiency, admitted with shortness of breath and dyspnea. She has known history of cardiomyopathy. Found to be in atrial fibrillation with RVR. We are asked to see her concerning her cardiovascular status. PAST MEDICAL HISTORY: Includes; 1. History of coronary artery disease. 2. Chronic renal insufficiency, on dialysis. 3. Hypertension. 4. Orthostatic hypotension, on ProAmatine. ALLERGIES: IODINE AND SULFA. MEDICATIONS: Typically at home, include ProAmatine 10 mg t.i.d., amiodarone 100 b.i.d., carvedilol 6.25 daily, Neurontin 100 t.i.d., and Protonix 40 daily. REVIEW OF SYSTEMS: The patient reports easy bruising but reports no swollen glands. The patient reports no fever, no night sweats, no significant weight gain, no significant weight loss. No significant exercise tolerance. The patient reports no dry eyes, no irritation, no vision change. Patient reports no difficulty hearing and no ear pain. Patient reports no frequent nose bleeds or nose and sinus problems. Patient reports on arm pain on exertion. No shortness of breath while lying down. No history of heart murmur. Patient reports no cough, no wheezing or coughing up blood. Patient reports no abdominal pain, no vomiting. Normal appetite. No diarrhea and not vomiting blood. No nausea and no constipation. Patient reports no incontinence. No difficulty urinating. No hematuria. No increased frequency. Patient reports no muscle aches. No weakness, no arthralgias, no back pain. No swelling of the extremities. Patient reports no abnormal mole, no jaundice, no rashes. Reports no loss of consciousness. No weakness and no numbness. No seizures, dizziness, or headaches. The patient reports no depression, no sleep disturbance, feeling safe in a relationship and no alcohol abuse. Patient reports on fatigue. Reports no runny nose or sinus pressure. No itching, no hives, and no frequent sneezing. SOCIAL HISTORY: She is nonsmoker and nondrinker. She has some trouble with ADLs. PHYSICAL EXAMINATION: GENERAL: Pleasant female, in no acute distress. VITAL SIGNS: Blood pressure 119/62 and pulse 139. HEENT: Normocephalic and atraumatic. NECK: No JVD or bruit. HEART: Irregular and tachycardic. II/ systolic ejection murmur. LUNGS: Good air excursion. ABDOMEN: Soft and nontender. EXTREMITIES: Pulse is 1+. There is 1+ edema. CONSULT REPORT [id number] MITZI SAGASTUME IMPRESSION: Volume overload, atrial fibrillation with RVR. With her orthostatic hypotension, hesitant to increase her carvedilol or add Cardizem. We will start with dig. If pressures allow, would consider increasing carvedilol as well. TRANSINT:[id number] Voice Confirmation ID: [id number] DOCUMENT ID: [id number] CLARK ANGELES MD at 1326 CC: [id number] DICTATION DATE: 06/02/17 0836 SCHOOL HEALTH ASSISTANT: 06/02/17 1056 ADM IN [facility] [address] [place] [address]
[~2017-06-01 15:20] MED LIST changes: +COREG6.25 MG PO
[2017-06-01 16:20] LABS: BASOPHILS 0.8 % (0-2); EOSINOPHILS 1.6 % (0-7); HEMATOCRIT 35.7 % (36.0-48.0); HEMOGLOBIN 11.2 g/dL (12-16); IMMATURE GRANULOCYTES 0.2 % (0-5); LYMPHOCYTES 18.7 % (15-50); MCH 30.4 pg (26.0-34.0); MCHC 31.4 g/dL (31.0-37.0); NEUTROPHILS 68.7 % (40-80); PLATELET COUNT 268 10x3/uL (130-400); RBC 3.68 10x6/uL (4.00-5.40); RDW 16.9 % (11.5-14.5); WBC 8.7 10x3/uL (4.8-10.8)
[2017-06-01 16:52] LABS: ALBUMIN 2.9 g/dL (3.4-5.0); BILIRUBIN - TOTAL 1.26 mg/dL (0.2-1.3); CALCIUM 7.9 mg/dL (8.5-10.1); CARBON DIOXIDE 30.4 mmol/L (21.0-32.0); CREATININE - SERUM 2.8 mg/dL (0.6-1.3); PROTEIN - SERUM 7.8 g/dL (6.4-8.2)
[2017-06-01 17:20] LABS: ANION GAP 15.2 mmol/L (8-16)
[2017-06-01 17:22] LABS: POTASSIUM - SERUM 2.6 mmol/L (3.5-5.1)
[2017-06-01 21:14] VITALS: BP 110/40
[2017-06-02] VITALS (8 sets, daily range): BP systolic 106–154; BP diastolic 40–73; Ht 162.6 cm; Wt 97.1 kg
[2017-06-02 08:47] LABS: CKMB 1.5 U/L (0.0-3.6); CREATINE KINASE 43 UL (21-215)
[2017-06-02 13:55] LABS: CKMB 1.2 U/L (0.0-3.6); CREATINE KINASE 38 UL (21-215)
[2017-06-02 14:00] LABS: TROPONIN-I 0.073 ng/mL (0.000-0.060)
[2017-06-02 19:24] LABS: CKMB 1.5 U/L (0.0-3.6); CREATINE KINASE 97 UL (21-215); TROPONIN-I < 0.017 ng/mL (0.000-0.060)
[2017-06-03] VITALS: BP 127/61
[2017-06-03 04:00] VITALS: BP 122/78
[2017-06-03 05:54] LABS: DIGOXIN 0.45 ng/mL (0.90-2.00)
[2017-06-03 08:43] VITALS: BP 133/64
[2017-06-03 16:45] VITALS: BP 120/57
[2017-06-03 20:19] VITALS: BP 114/70
[2017-06-04 00:16] VITALS: BP 121/74
[2017-06-04 04:52] LABS: BASOPHILS 0.6 % (0-2); EOSINOPHILS 3.1 % (0-7); HEMATOCRIT 35.2 % (36.0-48.0); HEMOGLOBIN 10.7 g/dL (12-16); IMMATURE GRANULOCYTES 0.3 % (0-5); LYMPHOCYTES 19.1 % (15-50); MCH 30.9 pg (26.0-34.0); MCHC 30.4 g/dL (31.0-37.0); MCV 101.7 fL (80.0-100.0); MEAN PLATELET VOLUME 10.4 fL (7.4-10.4); MONOCYTES 13.2 % (2-11); NEUTROPHILS 63.7 % (40-80); PLATELET COUNT 231 10x3/uL (130-400); RBC 3.46 10x6/uL (4.00-5.40); RDW 18.1 % (11.5-14.5); WBC 7.9 10x3/uL (4.8-10.8)
[2017-06-04 05:14] LABS: ANION GAP 13.2 mmol/L (8-16); CALCIUM 7.3 mg/dL (8.5-10.1); CARBON DIOXIDE 31.6 mmol/L (21.0-32.0); CREATININE - SERUM 3.7 mg/dL (0.6-1.3); PHOSPHOROUS 5.9 mg/dL (2.5-4.9); POTASSIUM - SERUM 3.8 mmol/L (3.5-5.1)
[2017-06-04 05:31] VITALS: BP 154/53
[2017-06-04 08:09] VITALS: BP 121/52; BP 138/74
[2017-06-04 12:02] VITALS: BP 128/48
[2017-06-04 16:41] VITALS: BP 133/60
[2017-06-04 19:00] VITALS: BP 132/67
[2017-06-05] VITALS: BP 122/50
[2017-06-05 04:00] VITALS: BP 112/46
[2017-06-05 06:02] LABS: BASOPHILS 0.6 % (0-2); EOSINOPHILS 4.1 % (0-7); HEMATOCRIT 35.6 % (36.0-48.0); HEMOGLOBIN 10.7 g/dL (12-16); IMMATURE GRANULOCYTES 0.1 % (0-5); LYMPHOCYTES 16.2 % (15-50); MCH 30.7 pg (26.0-34.0); MCHC 30.1 g/dL (31.0-37.0); MCV 102.3 fL (80.0-100.0); MEAN PLATELET VOLUME 10.3 fL (7.4-10.4); MONOCYTES 13.7 % (2-11); NEUTROPHILS 65.3 % (40-80); PLATELET COUNT 226 10x3/uL (130-400); RBC 3.48 10x6/uL (4.00-5.40); RDW 18.1 % (11.5-14.5); WBC 8.1 10x3/uL (4.8-10.8)
[2017-06-05 06:32] LABS: ANION GAP 13.7 mmol/L (8-16); CARBON DIOXIDE 29.1 mmol/L (21.0-32.0); POTASSIUM - SERUM 3.8 mmol/L (3.5-5.1)
[2017-06-05 06:42] LABS: CALCIUM 6.1 mg/dL (8.5-10.1); CREATININE - SERUM 5.1 mg/dL (0.6-1.3); PHOSPHOROUS 7.9 mg/dL (2.5-4.9)
[2017-06-05 08:00] VITALS: BP 105/40
[2017-06-05 12:43] VITALS: BP 116/49
[2017-06-05 16:42] VITALS: BP 117/43
[2017-06-05 20:36] VITALS: BP 145/46
[2017-06-06 01:20] VITALS: BP 120/60
[2017-06-06 05:31] VITALS: BP 139/61
[2017-06-06 05:55] LABS: BASOPHILS 0.4 % (0-2); EOSINOPHILS 3.7 % (0-7); HEMATOCRIT 36.8 % (36.0-48.0); HEMOGLOBIN 11.3 g/dL (12-16); IMMATURE GRANULOCYTES 0.3 % (0-5); LYMPHOCYTES 17.5 % (15-50); MCHC 30.7 g/dL (31.0-37.0); MCV 101.1 fL (80.0-100.0); MEAN PLATELET VOLUME 10.6 fL (7.4-10.4); MONOCYTES 13.6 % (2-11); NEUTROPHILS 64.5 % (40-80); PLATELET COUNT 232 10x3/uL (130-400); RBC 3.64 10x6/uL (4.00-5.40); RDW 17.9 % (11.5-14.5); WBC 7.6 10x3/uL (4.8-10.8)
[2017-06-06 06:23] LABS: CARBON DIOXIDE 27.9 mmol/L (21.0-32.0); CREATININE - SERUM 6.2 mg/dL (0.6-1.3)
[2017-06-06 06:30] LABS: ANION GAP 17.7 mmol/L (8-16); PHOSPHOROUS 9.7 mg/dL (2.5-4.9); POTASSIUM - SERUM 4.6 mmol/L (3.5-5.1)
[2017-06-06 06:31] LABS: CALCIUM 6.1 mg/dL (8.5-10.1)
[2017-06-06 08:20] VITALS: BP 119/43
[2017-06-06 11:15] VITALS: BP 145/48
[2017-06-06 19:00] VITALS: BP 158/41
[2017-06-07 04:00] VITALS: BP 132/47
[2017-06-07 06:02] LABS: BASOPHILS 0.9 % (0-2); EOSINOPHILS 3.6 % (0-7); HEMATOCRIT 38.2 % (36.0-48.0); HEMOGLOBIN 11.7 g/dL (12-16); IMMATURE GRANULOCYTES 0.2 % (0-5); MCH 30.8 pg (26.0-34.0); MCHC 30.6 g/dL (31.0-37.0); MCV 100.5 fL (80.0-100.0); MEAN PLATELET VOLUME 10.4 fL (7.4-10.4); MONOCYTES 12.6 % (2-11); NEUTROPHILS 62.7 % (40-80); PLATELET COUNT 216 10x3/uL (130-400); RDW 17.9 % (11.5-14.5); WBC 8.2 10x3/uL (4.8-10.8)
[2017-06-07 06:13] LABS: ANION GAP 15.4 mmol/L (8-16); CARBON DIOXIDE 27.1 mmol/L (21.0-32.0); POTASSIUM - SERUM 4.5 mmol/L (3.5-5.1)
[2017-06-07 06:18] LABS: PHOSPHOROUS 6.9 mg/dL (2.5-4.9)
[2017-06-07 07:55] VITALS: BP 132/47
[2017-06-07 11:52] VITALS: BP 125/42
[2017-06-07 16:11] VITALS: BP 151/59
== END 2017-06-07 18:19 | disposition hospice, inpatient (51) | DRG 291 ==
LOC: D.ER 15:20 → D.M2 18:18 → OBSVTIME 18:18 → D.M2 18:18
PROVIDERS: Emergency Medicine; Internal Medicine Nephrology
PROC: 5A1D70Z Performance of Urinary Filtration, Intermittent, Less than 6 Hours Per Day (ICD-10-PCS; principal; 2017-06-02)
DX: I13.2 Hypertensive heart and chronic kidney disease with heart failure and with stage 5 chronic kidney disease, or end stage renal disease (principal); N18.6 End stage renal disease; J96.01 Acute respiratory failure with hypoxia; I50.21 Acute systolic (congestive) heart failure; Z99.2 Dependence on renal dialysis; I48.2 Chronic atrial fibrillation; D63.1 Anemia in chronic kidney disease; Z91.19 Patient's noncompliance with other medical treatment and regimen; I42.9 Cardiomyopathy, unspecified; I25.10 Atherosclerotic heart disease of native coronary artery without angina pectoris; I95.1 Orthostatic hypotension; R62.7 Adult failure to thrive; R63.0 Anorexia; Z68.36 Body mass index [BMI] 36.0-36.9, adult

== ENCOUNTER 2017-06-07 17:37 | Inpatient (IN) | payer OTHER ==
[~2017-06-07] VITALS: Ht 162.6 cm; Wt 97.3 kg
[2017-06-07 19:00] VITALS: BP 147/61
[2017-06-08 01:01] VITALS: Ht 162.6 cm; Wt 97.3 kg
[2017-06-08 04:00] VITALS: BP 157/44
[2017-06-08 07:57] VITALS: BP 139/54
[2017-06-08 11:45] VITALS: BP 124/57
[2017-06-08 15:49] VITALS: BP 132/48
[2017-06-09 03:32] VITALS: BP 168/66
[2017-06-09 07:48] VITALS: BP 142/80
[2017-06-09 20:06] VITALS: BP 126/79
[2017-06-10 07:49] VITALS: BP 184/79
[2017-06-10 20:45] VITALS: BP 149/63
[2017-06-11 00:30] VITALS: BP 169/67
[2017-06-11 08:00] VITALS: BP 123/57
[2017-06-12 08:12] VITALS: BP 143/54
[2017-06-12 11:30] VITALS: BP 146/60
[2017-06-12 15:40] VITALS: BP 126/64
== END 2017-06-12 21:00 | DRG 951 ==
LOC: D.SDCHOLD 17:37 → D.M2 17:37
DX: Z51.5 Encounter for palliative care (principal)